=== PATIENT | male | born 1975 | race Caucasian/White ===

== ENCOUNTER → 2018-09-10 11:32 | Outpatient (CLI) | payer OTHER, SELFPAY ==
[2018-09-10 12:30] LABS: AST(SGOT) 31 U/L (15-37); Alanine Aminotransfer ALT/SGPT 61 U/L (16-61); Albumin, Serum 4.2 g/dL (3.2-5.0); Alkaline Phosphatase 97 U/L (45-117); Amylase 30 U/L (25-115); Bilirubin, Direct 0.32 mg/dL (0.00-0.30); Globulin 4.4 g/dL (2.2-4.2); Lipase 210 U/L (73-393); Protein, Total 8.6 g/dL (6.4-8.2)
[2018-09-12 14:54] LABS: ANTINUCLEAR ANTIBODIES DIRECT Negative (Negative)
[2018-09-13 10:57] LABS: AFP, Tumor Marker 5.6 ng/mL (0.0-8.3); Alpha Antitrypsin Serum 113 mg/dL (90-200); Anti-Mitochondrial AB <20.0 Units (0.0-20.0); Anti-Smooth Muscle ABS 10 Units (0-19); Ceruloplasmin 26.2 mg/dL (16.0-31.0)
== END ==
DX: R10.13 Epigastric pain (principal); R94.5 Abnormal results of liver function studies; R07.9 Chest pain, unspecified
CPT/HCPCS: 36415; 80076; 82103; 82105; 82150; 82390; 83516; 83690; 86038

== ENCOUNTER 2019-03-14 08:22 | Inpatient (IN) | payer OTHER, SELFPAY ==
[2019-03-14] VITALS (13 sets, daily range): BP systolic 135–155; BP diastolic 83–104; PULSE 71–126; RESP 14–22; TEMP 36.4–37.3; O2SAT 94–97; BMI 36.6; BMI 34.8
--- NOTE | 2019-03-14 08:40 | EKG12_ITS ---
Test Reason : AM EKG Blood Pressure : / mmHG Vent. Rate : 086 BPM Atrial Rate : 086 BPM P-R Int : 136 ms QRS Dur : 096 ms QT Int : 400 ms P-R-T Axes : 050 -04 043 degrees QTc Int : 478 ms Normal sinus rhythm Inferior infarct , age undetermined Abnormal ECG No previous ECGs available Confirmed by NEETU HERMAN, ANTHONY ([id number]), multimedia editor VICKEY THIBODEAUX ([id number]) on 03/21/2019 6:49:30 AM Referred By: Amanda Guillaume Confirmed By:RAMANDEEP DE ANDA MD
--- NOTE | 2019-03-14 08:40 | RAD_ITS ---
STUDY: X-RAY CHEST REASON FOR EXAM: Male, 44 years old. Dizziness and shortness of breath. TECHNIQUE: Single AP portable view of the chest. COMPARISON: None. FINDINGS: The lungs are clear and expanded. There is no demonstrated pleural abnormality. Normal size heart. Normal mediastinum and augustin. Normal visualized pulmonary arteries. Normal visualized aortic arch and descending thoracic aorta. Normal visualized thoracic spine. Normal visualized ribs, clavicles, and shoulders. There is no demonstrated abnormality of the visualized soft tissue structures of the upper abdomen. RAD/Chest 1 View (Portable) IMPRESSION: Normal x-ray examination of the chest. Electronically Signed: Francis Goodwin, at 9:05 EDT , Service support ,
--- NOTE | 2019-03-14 08:44 | NURSING ---
NO OLD EKGS
[2019-03-14] MEDS: 0.9% Normal Saline 1,000 ML 1000 ML IV (09:02)
[2019-03-14] MEDS: Aspirin 81 MG TAB.CHEW 162 MG PO (09:02)
[2019-03-14] MEDS: Ondansetron 4 MG/2 ML Vial IV (09:02)
[2019-03-14] MEDS: chlordiazePOXIDE 25 MG Capsule 50 MG PO ×4 (09:13→23:54)
[2019-03-14 09:19] LABS: Absolute Lymphocyte Count 1.44 X10^3/ul (0.83-4.51); Absolute Neutrophil Count 3.7 X10^3/uL (2.0-7.7); Basophil# 0.08 X10^3/uL; Basophil% 1.4 % (0-1); Eosinophil# 0.01 X10^3/uL; Eosinophils% 0.2 % (0-5); Hematocrit 47.1 % (40-54); Lymphocyte # 1.44 X10^3/ul (4.0); Mean Corp Hgb Conc 36.1 g/gl (32-36); Mean Corpuscular Hgb 31.9 pg (27.0-32.0); Mean Corpuscular Volume 88.4 fL (80-94); Mean Platelet Vol. 8.7 fl (6.2-12.0); Monocyte# 0.52 X10^3/uL; Neutrophil # 3.71 X10^3/uL (2.7-7.7); Neutrophil % 64.2 % (47-70); POSITIVE COUNT NO; POSITIVE DIFFERENTIAL NO; POSITIVE MORPHOLOGY NO; Platelet Count 273 K/mm3 (150-450); RBC Distribution Width CV 13.2 % (11.6-14.6); RBC Distribution Width SD 42.3 fl (35.1-43.9); Red Blood Count 5.33 M/mm3 (4.6-6.2); White Blood Count 5.8 K/mm3 (4.4-11.0)
[2019-03-14 09:26] LABS: Bedside Glucose 97 mg/dL (70-110)
[2019-03-14 09:37] LABS: ALB/GLOB Ratio 0.9 RATIO (0.9-2.4); AST(SGOT) 43 U/L (15-37); Alanine Aminotransfer ALT/SGPT 74 U/L (16-61); Albumin, Serum 3.8 g/dL (3.2-5.0); Alkaline Phosphatase 91 U/L (45-117); Anion Gap 24 (5-15); BUN 15 mg/dL (7-18); Chloride 95 mmol/L (98-107); Creatinine, Serum 0.94 mg/dL (0.70-1.30); EST Glomerular Filtration Rate 92 mL/min (>60); Est Glom Filt Rate - Afr Amer 112 mL/min (>60); Estimated Creatinine Clearance 108.92 ml/min; Globulin 4.3 g/dL (2.2-4.2); Glucose 122 mg/dL (74-106); Lipase 99 U/L (73-393); Potassium 3.5 mmol/L (3.5-5.1); Protein, Total 8.1 g/dL (6.4-8.2); Sodium Level 137 mmol/L (136-145)
--- NOTE | 2019-03-14 10:00 | ED.RN ---
LACTIC 9.[address] THE LAB. DR PUCKETT AWARE
--- NOTE | 2019-03-14 10:07 | ED.DCSUM_ITS ---
- ER Visit Summary Date of Service: 03/14/19 Chief Complaint: [Dizziness and shortness of breath and alcohol abuse] History of Present Illness: The patient is a 44 M [presents the emergency department with multiple complaints this morning. Patient's states that patient has been abusing alcohol for the last for 5 days as he has been on a binge. Patient has been drinking 1/5 of vodka daily. This morning while in the shower he felt short of breath and had to stop multiple times while attempting to shower and sit. Patient has had some intermittent chest tightness. He describes some abdominal discomfort and several episodes of vomiting this morning. Patient states that he last drank around 6 or 7 PM last night. In December of this year patient had a heart attack that was mild that required evacuation of a clot from his right coronary artery but no stenting. Patient also with history of lactic acidosis. He denies feeling suicidal or homicidal. He denies any hallucinations.] Physical Examination: [HEENT-PERRLA, EOMI. Cranial nerves II through XII grossly intact. TMs clear. Mucous membranes dry. No adenopathy. Cardiovascular-regular and tachycardic without murmur or ectopy Lungs-clear to auscultation, chest wall stable without crepitus or subcu emphysema Abdomen-normoactive bowel sounds, soft, nontender, no rebound or rigidity, no peritoneal signs. Extremities-intact ?4, normal range of motion, normal pulses, atraumatic] Test Results: [EKG obtained arrival shows sinus tachycardia with a ventricular rate of 103 bpm with some nonspecific ST changes. CBC with differential and a white count 5.8, hemoglobin 17, hematocrit 47, placed 273. Chemistries unremarkable. CO2 is 18. BUN was 15 and creatinine 0.94. LFTs showed slight elevation in alk phos of 91 and ALT of 74 and AST of 43. Troponin was less than 0.015. Lactate was elevated 9.0. Chest x-ray showed nothing acute.] Emergency Department Course and Treatment: [Patient was given a liter normal same fluid bolus and given Librium 50 mg p.o. Patient was given Zofran.] Treatment Plan: [Admit for IV hydration and symptom management.] Disposition: [Admit] Impression: [Alcohol withdrawal Lactic acidosis] This note was generated with [employer] software. It may contain incorrect words, spelling, and punctuation that were not noted in review of the chart prior to signing ED Disposition - Plan for ED Patient: Referrals: Town Doctor,Out of [Primary Care Provider] -
--- NOTE | 2019-03-14 10:07 | NURSING ---
PCU SEMENTI ETOH WITHDRAWAL, LACIC ACIDOSIS
[2019-03-14] MEDS: 0.9% Normal Saline 1,000 ML 150 ML IV (10:10)
[2019-03-14] MEDS: 0.9% Normal Saline 1,000 ML 999 ML IV (11:00)
[2019-03-14] MEDS: LORazepam 1 MG Tablet 2 MG PO (11:34)
[2019-03-14] MEDS: Acetaminophen 325 MG Tablet 650 MG PO (11:35)
[2019-03-14] MEDS: Famotidine 20 MG Tablet PO ×2 (11:35→21:00)
[2019-03-14] MEDS: Dextrose 5%-Lactated Ringers 1,000 ML 150 ML IV ×3 (11:55→23:55)
[2019-03-14] MEDS: Folic Acid 1 MG Tablet PO (11:57)
[2019-03-14] MEDS: Thiamine Hydrochloride 100 MG Tablet PO ×2 (11:58→18:01)
[2019-03-14] MEDS: Multivitamins,Ther W-Minerals Tablet 1 TABLET PO (11:58)
[2019-03-14] MEDS: Enoxaparin 40 MG/0.4 ML Syringe SC (11:58)
[2019-03-14 13:15] LABS: Reflex Lactate? Y
[2019-03-14 16:12] LABS: Anion Gap 16 (5-15); BUN 11 mg/dL (7-18); BUN/Creat Ratio 11.2 RATIO (10-20); Calcium,Total 8.2 mg/dL (8.5-10.1); Chloride 100 mmol/L (98-107); Creatinine, Serum 0.98 mg/dL (0.70-1.30); EST Glomerular Filtration Rate 88 mL/min (>60); Est Glom Filt Rate - Afr Amer 106 mL/min (>60); Estimated Creatinine Clearance 104.48 ml/min; Glucose 105 mg/dL (74-106); Potassium 3.4 mmol/L (3.5-5.1); Sodium Level 139 mmol/L (136-145)
--- NOTE | 2019-03-14 17:16 | PCM.HP.STD ---
Problem List (1) Lactic acidosis Status: Acute (2) Hypertension Status: Chronic (3) Gout Status: Chronic (4) Depression Status: Chronic (5) Dehydration Status: Acute (6) Hypokalemia Status: Acute (7) Abnormal LFTs Status: Acute (8) Alcoholism /alcohol abuse Status: Chronic History of Present Illness Date of Admission: 03/14/19 Chief Complaint: chest pain with SOB per the pt The patient is a 44 year old M with a PMH of alcoholism, AK due to a clot in a coronary artery (clot was evacuated and he did not have a stent), anxiety with panic attacks, depression and gout who presented to the ED at [facility] on 03/14/2019 complaining of chest pain and shortness of breath. He had been on an alcohol binge the preceding 5 days and was drinking 1/5 of vodka daily and not eating. He got short of breath while taking a shower and had to sit down multiple times. He also had abdominal discomfort and several episodes of emesis that morning. His last drink was the preceding evening at 6 or 7 PM. In the past he had been taking Valium regularly but discontinued this. His doctor would no longer prescribe it. He has been on Paxil which was stopped over a period of 9 days and he went through acute withdrawal. He has been to AA in the past. Lab in the emergency department revealed an elevated hemoglobin at 17 secondary to dehydration. The chloride was low at 95 and the serum bicarb was low at 18. The anion gap was increased to 24. Lactic acid was 9.0. Total bilirubin was increased at 1.1 and the AST was 43 with an ALT of 74 and a normal alkaline phosphatase. Troponin was less than 0.015. UA had no WBCs. Urine drug screen was negative. Ethyl alcohol level was 31. Acetone was negative. There were ketones in the urine. Chest x-ray revealed no evidence of infiltrates, pleural effusions or pulmonary vascular congestion. He is being admitted to the hospital with lactic acidosis due to dehydration, alcoholic ketosis and excessive alcohol intake. Past Medical History Past Medical History (Chronic Problems): Chronic Problems Insomnia (Chronic) Anxiety (Chronic) Hypertension (Chronic) Gout (Chronic) Depression (Chronic) Alcoholism /alcohol abuse (Chronic) Allergies prednisone Adverse Reaction (Verified 03/14/19 08:25) Other RAPID HR AND CANNOT SLEEP Home Medications: Ambulatory Orders Medication Instructions Recorded Aspirin [Aspir 81] 81 mg PO DAILY 03/14/19 Clopidogrel Bisulfate [Clopidogrel] 75 mg PO DAILY 03/14/19 Folic Acid 1 mg PO DAILY 03/14/19 Icosapent Ethyl [Vascepa] 2 gm PO BID 03/14/19 Metoprolol Tartrate 50 mg PO BID 03/14/19 Multivitamin,Stress Formula 1 ea PO DAILY 03/14/19 [Stress Formula] Potassium 99 mg PO DAILY 03/14/19 Smz/Tmp Ds [Bactrim Ds] 1 tab PO BID 03/14/19 Thiamine HCl [Vitamin B-1] 250 mg PO DAILY 03/14/19 traZODone [Desyrel] 50 - 100 mg PO QHS #45 tab 03/15/19 Surgical History: noncontributory Psychiatric History: Anxiety, Depression Lives: Spouse/ Significant Other Smoking Status: Never smoker Tobacco Use: Non-smoker Alcohol: Heavy Drugs: None - *Family History Maternal History Items: - - Grandfather was an alcoholic Review of Systems Constitutional: Reports: Malaise, Fatigue. Denies: Chills, Fever, Weight Change HEENT: Denies: Head Aches, Sinus Congestion, Sinus Drainage Cardiovascular: Reports: Chest Pain, Light Headedness. Denies: Orthopnea, Palpitations, Syncope Respiratory: Reports: Shortness of breath upon exertion. Denies: Cough, Shortness of breath at rest, Sputum production Gastrointestinal: Reports: Nausea, Vomiting. Denies: Abdominal Pain, Diarrhea Genitourinary: Denies: Dysuria Musculoskeletal: Denies: Joint Pain, Joint Tenderness Skin: Denies: Rash, Wounds Neurological: Denies: Confusion, Focal weakness, Numbness, Tingling, Tremor, Seizures Psychiatric: Denies: Anxiety, Depression, Homicidal Ideations, Suicidal Ideations Hematologic/ Lymphatic: Denies: Easy Bruising, Easy Bleeding, Hx of blood clot VTE Information - Inpt Only VTE Present on Admission: No VTE Mechan Device Prophylaxis: Knee High BENTLEY Hose VTE Pharm Prophylaxis ordered?: Yes Patient Problems: Active and Suspected Problems Lactic acidosis (Acute) Dehydration (Acute) Hypokalemia (Acute) Abnormal LFTs (Acute) - Physical Exam General: Alert, Oriented x3, Cooperative, - - looks pale and tired HEENT: Atraumatic, PERRLA, EOMI, Normocephalic Oral: No Gingival or Mucosal Lesions/ Ulcerations, Dry Mucosa Neck: Supple, No JVD, Negative Carotid Bruits, No Nodes, Trachea Midline Lungs: Clear to auscultation, Normal air movement, No rhonchi, No wheeze, No rales Cardiovascular: Regular rate, Regular Rhythm, Normal S1, Normal S2, No murmurs, No Ectopic Activity, No rub noted, No Gallop Abdomen: Bowel Sounds Present, Soft, Non Tender, Non-Distended Extremities: No clubbing, No cyanosis, No edema, Capillary Refill Less than 3 Seconds, No Calf Tenderness Skin: No rashes, No breakdown Musculoskeletal: No Tenderness to Palpation of Joints or Extremities Neurological: Cranial nerves II-XII grossly intact, Neuro grossly intact Psych/Mental Status: Normal Affect, Appropriate, Anxious Vital Signs Temp Pulse Resp BP Pulse Ox 98.6 F 77 14 135/89 H 96 03/14/19 14:44 03/14/19 16:00 03/14/19 14:44 03/14/19 14:44 03/14/19 14:44 Oxygen Delivery Method Room Air Weight: 256 lb 13.416 oz Body Mass Index (BMI) 34.8 Finger Stick Blood Glucose 97 Intake and Output for Last 24 Hours 03/12/19 03/13/19 03/14/19 23:59 23:59 23:59 Intake Total 888 / 888 Balance 888 / 888 Laboratory Tests Past 24 Hrs 03/14/19 03/14/19 03/14/19 09:05 09:05 09:05 WBC 5.8 RBC 5.33 Hgb 17.0 H Hct 47.1 MCV 88.4 MCH 31.9 MCHC 36.1 H RDW 13.2 RDW Differential 42.3 Plt Count 273 MPV 8.7 Immature Gran % (Auto) 0.200 Neut % (Auto) 64.2 Lymph % (Auto) 25.0 [place] % (Auto) 9.0 Eos % (Auto) 0.2 Baso % (Auto) 1.4 H Absolute Neuts (auto) 3.7 Absolute Lymphs (auto) 1.44 Total Counted Not Reportable Sodium 137 Potassium 3.5 Chloride 95 L Carbon Dioxide 18.0 L Anion Gap 24 H BUN 15 Creatinine 0.94 Estim Creat Clear Calc 108.92 Est GFR (MDRD) Af Amer 112 Est GFR (MDRD) Non-Af 92 BUN/Creatinine Ratio 16.0 Glucose 122 H Lactic Acid 9.0 H* Calcium 9.0 Total Bilirubin 1.10 H AST 43 H ALT 74 H Alkaline Phosphatase 91 Troponin I < 0.015 Total Protein 8.1 Albumin 3.8 Globulin 4.3 H Albumin/Globulin Ratio 0.9 Lipase 99 Ethyl Alcohol Acetone Level 03/14/19 03/14/19 03/14/19 09:05 09:05 13:32 WBC RBC Hgb Hct MCV MCH MCHC RDW RDW Differential Plt Count MPV Immature Gran % (Auto) Neut % (Auto) Lymph % (Auto) [place] % (Auto) Eos % (Auto) Baso % (Auto) Absolute Neuts (auto) Absolute Lymphs (auto) Total Counted Sodium Potassium Chloride Carbon Dioxide Anion Gap BUN Creatinine Estim Creat Clear Calc Est GFR (MDRD) Af Amer Est GFR (MDRD) Non-Af BUN/Creatinine Ratio Glucose Lactic Acid 4.0 H* Calcium Total Bilirubin AST ALT Alkaline Phosphatase Troponin I Total Protein Albumin Globulin Albumin/Globulin Ratio Lipase Ethyl Alcohol 31.0 Acetone Level NEGATIVE 03/14/19 15:35 WBC RBC Hgb Hct MCV MCH MCHC RDW RDW Differential Plt Count MPV Immature Gran % (Auto) Neut % (Auto) Lymph % (Auto) [place] % (Auto) Eos % (Auto) Baso % (Auto) Absolute Neuts (auto) Absolute Lymphs (auto) Total Counted Sodium 139 Potassium 3.4 L Chloride 100 Carbon Dioxide 23.0 Anion Gap 16 H BUN 11 Creatinine 0.98 Estim Creat Clear Calc 104.48 Est GFR (MDRD) Af Amer 106 Est GFR (MDRD) Non-Af 88 BUN/Creatinine Ratio 11.2 Glucose 105 Lactic Acid Calcium 8.2 L Total Bilirubin AST ALT Alkaline Phosphatase Troponin I Total Protein Albumin Globulin Albumin/Globulin Ratio Lipase Ethyl Alcohol Acetone Level POC Glucose 03/14/19 09:19 POC Glucose 97 Assessment/Plan All Active Problems Lactic acidosis (Acute) Dehydration (Acute) Hypokalemia (Acute) Abnormal LFTs (Acute) Impressions 1. chest pain with SOB 2. lactic acidosis - multifactorial. Due to alcoholic starvation ketosis, dehydration, excessive ETOH intake. 3. alcoholism 4. Anxiety with history of panic attacks 5. Depression 6. Insomnia 7. Hypokalemia 8. History of gout 9. History of a coronary artery clot which was evacuated with no NELI placed in the past Admit to a monitored bed on PCU Serial cardiac enzymes Hydrate Recheck lab in the a.m. Discussed alcohol rehab with the patient and also management of anxiety/depression Stress test in the a.m. Code Visit Inpatient E&M: 62457 Init Hosp L3
[2019-03-14 17:47] LABS: Bacteria 0 SEEN /hpf (None Seen); Mucous, Urine 0 SEEN /hpf (<or=2+); Red Blood Cells-Urine 0 SEEN /hpf (0-5); White Blood Cells 0 SEEN /hpf (0-5)
[2019-03-14 17:47] LABS: Magnesium 1.5 mg/dL (1.6-2.6); Phosphorus 3.7 mg/dL (2.5-4.9)
[2019-03-14 17:56] LABS: Color, Urine Yellow (Yellow); Glucose, Dipstick Normal (Normal); Ketone-Dipstick 5 mg/dl (Negative); Leukocyte Esterase-Dipstick Negative /ul (Negative); Nitrite-Dipstick Negative (Negative); Occult Blood-Urine Negative /ul (Negative); Protein-Dipstick Negative (Negative); Specific Gravity, Urine 1.015 (1.002-1.030); Urine Bilirubin Dipstick Negative (Negative); Urine Clarity Sl. Cloudy (Clear); Urine Urobilinogen Normal (Normal)
[2019-03-14 18:11] LABS: Amphetamine Urine VISTA NEGATIVE (<1000 ng/mL); Barbiturate Urine VISTA NEGATIVE (< 200 ng/mL); Benzodiazepine Urine VISTA NEGATIVE (< 200 ng/mL); Cocaine Urine VISTA NEGATIVE (< 300 ng/mL); Ecstacy Urine VISTA NEGATIVE (< 500 ng/mL); Methadone Urine VISTA NEGATIVE (< 300 ng/mL); PCP Urine VISTA NEGATIVE (< 25 ng/mL); THC Urine VISTA NEGATIVE (< 50 ng/mL); Vista UDS pH Range 6
[2019-03-14 18:36] LABS: Lactic Acid 2.6 mmol/L (0.4-2.0)
[2019-03-14 18:49] LABS: Amorphous Sediment 1+ URATE; Squamous Epithelial Cells - UA 0-5 SEEN /hpf (0-5)
[2019-03-14 21:56] LABS: Reflex Lactate? Y
[2019-03-14 22:58] LABS: Lactic Acid 2.2 mmol/L (0.4-2.0)
[2019-03-15 03:02] VITALS: PULSE 81
[2019-03-15 03:50] VITALS: BP 156/101; PULSE 89; RESP 16; TEMP 36.6; O2SAT 95
[2019-03-15 05:48] VITALS: BP 157/91; PULSE 89; RESP 16; TEMP 36.7; O2SAT 95
[2019-03-15] MEDS: Dextrose 5%-Lactated Ringers 1,000 ML 150 ML IV (05:50)
[2019-03-15] MEDS: chlordiazePOXIDE 25 MG Capsule 50 MG PO ×2 (05:50→13:16)
--- NOTE | 2019-03-15 05:55 | EKG12_ITS ---
Test Reason : SUBS ABUSE Blood Pressure : / mmHG Vent. Rate : 103 BPM Atrial Rate : 103 BPM P-R Int : 136 ms QRS Dur : 096 ms QT Int : 364 ms P-R-T Axes : 056 006 048 degrees QTc Int : 476 ms Sinus tachycardia Inferior infarct , age undetermined Anterolateral infarct , age undetermined Abnormal ECG Confirmed by ALMAZ SARMIENTO ([id number]), script editor VICKEY THIBODEAUX ([id number]) on 03/20/2019 10:30:04 AM Referred By: Amanda Guillaume Confirmed By:ALMAZ SARMIENTO
[2019-03-15 05:59] LABS: Absolute Lymphocyte Count 2.21 X10^3/ul (0.83-4.51); Absolute Neutrophil Count 2.4 X10^3/uL (2.0-7.7); Basophil# 0.04 X10^3/uL; Basophil% 0.8 % (0-1); Eosinophil# 0.13 X10^3/uL; Eosinophils% 2.5 % (0-5); Hematocrit 40.3 % (40-54); Lymphocyte # 2.21 X10^3/ul (4.0); Lymphocyte % 42.1 % (19-41); Mean Corp Hgb Conc 34.7 g/gl (32-36); Mean Corpuscular Hgb 31.4 pg (27.0-32.0); Mean Corpuscular Volume 90.4 fL (80-94); Mean Platelet Vol. 8.5 fl (6.2-12.0); Monocyte# 0.46 X10^3/uL; Monocyte% 8.8 % (0-10); Neutrophil # 2.41 X10^3/uL (2.7-7.7); Neutrophil % 45.8 % (47-70); Platelet Count 232 K/mm3 (150-450); RBC Distribution Width CV 13.1 % (11.6-14.6); RBC Distribution Width SD 42.2 fl (35.1-43.9); Red Blood Count 4.46 M/mm3 (4.6-6.2); White Blood Count 5.3 K/mm3 (4.4-11.0)
[2019-03-15 06:01] LABS: POSITIVE COUNT NO; POSITIVE DIFFERENTIAL NO; POSITIVE MORPHOLOGY NO
[2019-03-15 06:07] LABS: International Normalized Ratio 0.9; Prothrombin Time (Protime)PT. 12.4 SECONDS (11.7-14.9)
[2019-03-15 06:08] LABS: Partial Thromboplast Time 27.2 Seconds (24.1-36.2)
[2019-03-15 06:32] LABS: Anion Gap 17 (5-15); BUN 8 mg/dL (7-18); BUN/Creat Ratio 8.4 RATIO (10-20); Calcium,Total 7.7 mg/dL (8.5-10.1); Chloride 104 mmol/L (98-107); Creatinine, Serum 0.96 mg/dL (0.70-1.30); EST Glomerular Filtration Rate 90 mL/min (>60); Est Glom Filt Rate - Afr Amer 109 mL/min (>60); Estimated Creatinine Clearance 106.66 ml/min; Glucose 147 mg/dL (74-106); Potassium 3.8 mmol/L (3.5-5.1); Sodium Level 140 mmol/L (136-145)
--- NOTE | 2019-03-15 09:32 | CASEMGMT ---
SW spoke with patient. Introduced self and role at [facility]. Patient said he has an alcohol treatment program he plans on contacting. It is called [facility]. He has their information. He also knows of other alcohol treatment resources around him. SW encouraged him to keep trying as it is not easy, but possible to get sober. Plan: Patient has an alcohol treatment program he plans on contacting. Keerthi BOWEN MSW
[2019-03-15 09:48] VITALS: BP 143/71; PULSE 95; RESP 18; TEMP 36.9; O2SAT 97
[2019-03-15] MEDS: Famotidine 20 MG Tablet PO (10:11)
[2019-03-15] MEDS: Multivitamins,Ther W-Minerals Tablet 1 TABLET PO (10:19)
[2019-03-15] MEDS: Folic Acid 1 MG Tablet PO (10:19)
--- NOTE | 2019-03-15 10:35 | STRESSREP ---
Stress Test Report Date: 03-15-19 Procedure: Exercise tolerance test/imaging study Indications: Chest pain; shortness of breath/dyspnea Consent: Per the patient Procedure: The patient exercised on a Isaac protocol for 6 minutes and 35 seconds completing Stage II and 35 seconds of Stage III achieving a peak heart rate of 179 bpm (102 % predicted maximal heart rate) with a peak blood pressure 172/82 mmHg and a peak MET capacity of 7 METs. The baseline ECG demonstrated normal sinus rhythm. The peak exercise ECG demonstrated no obvious ECG changes. There were no cardiac dysrhythmias pretest, during exercise, or recovery. The functional capacity was considered average. There was chest tightness near peak exercise with spontaneous resolution in recovery. The examination was discontinued secondary to leg discomfort; dyspnea; lightheaded. Impression: 1. Technically adequate (percent predicted maximal heart rate greater than 85%) exercise tolerance test 2. Peak exercise ECG with no obvious ECG changes 3. There were no cardiac dysrhythmias pretest, during exercise, or recovery 4. Nuclear images pending Myocardial perfusion imaging study: Technique: The patient was injected with 14.8 mCi of technetium 99m Cardiolite and subsequently rest SPECT Cardiolite nuclear imaging was obtained in the horizontal long, vertical long, and short axis views. The patient exercised on a Isaac protocol for 6 minutes and 35 seconds completing Stage II and 35 seconds of Stage III achieving a peak heart rate of 179 bpm (102 % predicted maximal heart rate) with a peak blood pressure 172/82 mmHg and a peak MET capacity of 7 METs.The patient was injected with 44.7 mCi of technetium 99m Cardiolite and subsequently stress SPECT Cardiolite nuclear imaging was obtained in the horizontal long, vertical long, and short axis views. A gated Cardiolite study at peak stress was obtained. Interpretation: Rest and stress SPECT Cardiolite nuclear imaging status post realignment, normalization, and attenuation correction, demonstrates areas of extracardiac/hepatic and gastrointestinal tracer uptake at rest being more prominent than stress. At rest and stress there is notation of diminished absence of tracer uptake in portions of the distal inferior as well as portions of the apical segments without significant change between rest and stress. There is end systolic thickening and brightening. The gated Cardiolite study demonstrates myocardial thickening and inward wall motion. The reported LVEF is 56 %. Impression: 1. Rest and stress SPECT Cardiolite nuclear imaging demonstrate myocardial perfusion changes potentially compatible with the effects of gastrointestinal tracer uptake/detraction and physiologic apical thinning although an area of previous myocardial injury/infarction involving portions of the distal inferior as well as portions of the apical segments cannot necessarily be excluded. There are no myocardial perfusion changes considered diagnostic for associated stress-induced myocardial ischemia. 2. The gated Cardiolite study reports an LVEF of 56 %. This note was generated with [employer] software. It may contain incorrect words, spelling, and punctuation that were not noted in checking the note before signing.
--- NOTE | 2019-03-15 10:55 | CASEMGMT ---
RN CM PRACTICE CLINICIAN CM to room to meet with patient for initial transition planning/care coordination assessment. SHANAE QUARLES introduced self and role at [facility]. Pt voices understanding and consents to assessment at this time. Pt resting in bed in no distress at this time. Pt is A/O at this time and answers all questions appropriately. Care providers, pharmacy, and demographics verified/updated at this time. PCP: [facility] Specialists: Sharlene: [facility] in [place]. Carmen: [employer] [facility] [employer] [facility] @ [place] [facility] Preferred Pharmacy: [facility] Retail Insurance: [facility] [facility] Prescription Benefit: Yes Living Will/HPOA: States does not have LW or HCPOA . Interested in more information but states does not want to talk with SW at this time to complete paperwork. Provided information on advanced directives and given Social Service rac card with number to call if chooses in the future to utilize [facility] social work for advanced directive completion. Pt voices understanding. LNOK: Living Arrangements: Lives with . Independent. Transportation: Pt states drives self and states no transportation concerns at this time. will drive pt home @ D/C DME: Denies using any DME and denies needs. HHC/SNF: No history of either and no needs identified Pt wishes to return home and states has no concerns with going home at time of discharge. SW has seen for ETOH abuse. CM to follow for any discharge planning/needs. Pt and voice no concerns/needs at this time. Advised them to ask for CM if any further questions/concerns/needs arise. Voices understanding. PLAN: Home w/spousal support and discharge plans in place. Regi LUDWIG RN, CM
[2019-03-15] MEDS: Thiamine Hydrochloride 100 MG Tablet PO (13:16)
[2019-03-15 13:45] VITALS: BP 139/71; PULSE 94; RESP 18; TEMP 36.7; O2SAT 97
--- NOTE | 2019-03-15 15:53 | PCM.DC ---
- Discharge Diagnoses Current Active Problems: Current Active and Chronic Problems Lactic acidosis (Acute) Hypertension (Chronic) Gout (Acute) Depression (Acute) Dehydration (Acute) Hypokalemia (Acute) Abnormal LFTs (Acute) Alcoholism /alcohol abuse (Acute) You will use the following diet at home:: No restrictions Your food should be the consistency of: Regular Your liquids should be the consistency of: Regular/Thin Discharge Activity: - - Get in the habit of getting some exercise everyday. It helps with anxiety control and gives you energy. Return to work on:: 03/16/19 Call your doctor if you observe: Shortness of breath, Dizziness, Fainting spells, Swelling in the ankles, Chest pain Instructions: Depression: Tips to Help Yourself, What Can Cause Depression?, Depression Affects Your Mind and Body, Your Body's Response to Anxiety, Understanding Anxiety Disorders, Understanding Alcoholism, Alcoholism: Myths and Facts, Alcoholism: How to be Part of the Solution, Alcoholism: Resources for Family and Friends, Alcoholism: Getting Help Additional Instructions: 1. Keep trying. Most addicts/alcoholics go to rehab 7 times before they can finally conquer their addiction. Get back into a 12 step program. I think your may benefit from attending [facility]........this group is for the friends and families of alcoholics. 2. The problems you had at admission are due to drinking a lot and not eating. You are using alcohol to treat your anxiety/depression/insomnia.......you need to find other ways to cope. It is different for everyone. some people work out at a gym, others paint, some read, some knit, others ride a bike.....find what works for you to distract yourself so you don't sit and swell on anxiety. 3. The stress test was good.......no indication of significant coronary artery disease. 4. Antidepressants and medications for anxiety work much better when combined with good therapy. Find a counsellor you relate to who can help you with your mental health issues. Sometimes you have to try a few different broadcast correspondent before you find someone you click with. 5. Do not go to bed until at least 9:30.....and do not take the Trazodone until you are in bed and ready to sleep. You need to reestablish a normal sleep pattern Pending Tests on Discharge: none Allergies/Adverse Reactions: Allergies prednisone Adverse Reaction (Verified 03/14/19 08:25) Other RAPID HR AND CANNOT SLEEP Medications to take at Discharge Aspirin [Aspir 81] 81 mg PO DAILY 03/14/19 Clopidogrel Bisulfate [Clopidogrel] 75 mg PO DAILY 03/14/19 Folic Acid 1 mg PO DAILY 03/14/19 Icosapent Ethyl [Vascepa] 2 gm PO BID 03/14/19 Metoprolol Tartrate 50 mg PO BID 03/14/19 Multivitamin,Stress Formula [Stress Formula] 1 ea PO DAILY 03/14/19 Potassium 99 mg PO DAILY 03/14/19 Smz/Tmp Ds [Bactrim Ds] 1 tab PO BID 03/14/19 Thiamine HCl [Vitamin B-1] 250 mg PO DAILY 03/14/19 traZODone [Desyrel] 50 - 100 mg PO QHS #45 tab 03/15/19 The following prescriptions were given: traZODone [Desyrel] 50 - 100 mg PO QHS #45 tab Transmission Status: Pending to [facility] Primary Care Physician: [facility] Doctor,Out of [Primary Care Provider] - Please follow up with your Primary Care Physician in: 1-2 weeks Test Results: Test results from this visit will be discussed in further detail at your follow-up appointment, if applicable. Proposed Discharge Date: 03/15/19
--- NOTE | 2019-03-15 16:05 | WORK.SCH_ITS ---
Work/School Excuse From: 03/14/19 through: 03/15/19
--- NOTE | 2019-03-15 16:05 | PCM.WORK.EX ---
Work/School Excuse From: 03/14/19 through: 03/15/19
--- NOTE | 2019-03-15 16:22 | DS.PCM_ITS ---
Discharge Date and Diagnosis - Problem List Patient Problems: Active and Suspected Problems Lactic acidosis (Acute) Dehydration (Acute) Hypokalemia (Acute) Abnormal LFTs (Acute) Date of Admission: 03/14/19 Date of Discharge: 03/15/19 - Primary Discharge Diagnosis Active and Suspected Problems Lactic acidosis (Acute) Dehydration (Acute) Urinary ketosis Hypokalemia (Acute) Abnormal LFTs (Acute) Chest pain - Secondary Discharge Diagnosis Chronic Problems Insomnia (Chronic) Anxiety (Chronic) Hypertension (Chronic) Gout (Chronic) Depression (Chronic) Alcoholism /alcohol abuse (Chronic) Hospital Course and Treatment Imaging Results: Clinical Impression(s) from Imaging Studies Chest X-Ray 03/14/19 08:40 IMPRESSION: Normal x-ray examination of the chest. Electronically Signed: Francis Goodwin, at 9:05 EDT , Service support , Laboratory Tests 03/15/19 03/15/19 03/15/19 Range/Units 05:40 05:40 05:40 WBC 5.3 (4.4-11.0) K/mm3 RBC 4.46 L (4.6-6.2) M/mm3 Hgb 14.0 (13.0-16.5) g/dl Hct 40.3 (40-54) % MCV 90.4 (80-94) fL MCH 31.4 (27.0-32.0) pg MCHC 34.7 (32-36) g/gl RDW 13.1 (11.6-14.6) % RDW Differential 42.2 (35.1-43.9) fl Plt Count 232 (150-450) K/mm3 MPV 8.5 (6.2-12.0) fl Immature Gran % (Auto) 0.000 (0.0-0.9) % Neut % (Auto) 45.8 L (47-70) % Lymph % (Auto) 42.1 H (19-41) % [place] % (Auto) 8.8 (0-10) % Eos % (Auto) 2.5 (0-5) % Baso % (Auto) 0.8 (0-1) % Absolute Neuts (auto) 2.4 (2.0-7.7) X10^3/uL Absolute Lymphs (auto) 2.21 (0.83-4.51) X10^3/ul Total Counted Not Reportable PT 12.4 (11.7-14.9) SECONDS INR 0.9 APTT 27.2 (24.1-36.2) Seconds Sodium 140 (136-145) mmol/L Potassium 3.8 (3.5-5.1) mmol/L Chloride 104 (98-107) mmol/L Carbon Dioxide 19.0 L (21.0-32.0) mmol/L Anion Gap 17 H (5-15) BUN 8 (7-18) mg/dL Creatinine 0.96 (0.70-1.30) mg/dL Estim Creat Clear Calc 106.66 ml/min Est GFR (MDRD) Af Amer 109 (>60) mL/min Est GFR (MDRD) Non-Af 90 (>60) mL/min BUN/Creatinine Ratio 8.4 L (10-20) RATIO Glucose 147 H (74-106) mg/dL Lactic Acid (0.4-2.0) mmol/L Calcium 7.7 L (8.5-10.1) mg/dL Phosphorus (2.5-4.9) mg/dL Magnesium (1.6-2.6) mg/dL Total Bilirubin (0.20-1.00) mg/dL AST (15-37) U/L ALT (16-61) U/L Alkaline Phosphatase (45-117) U/L Troponin I (<0.045) ng/mL Total Protein (6.4-8.2) g/dL Albumin (3.2-5.0) g/dL Globulin (2.2-4.2) g/dL Albumin/Globulin Ratio (0.9-2.4) RATIO Lipase (73-393) U/L Urine Color (Yellow) Urine Clarity (Clear) Urine pH (5.0 - 8.0) Ur Specific [place] (1.002-1.030) Urine Protein (Negative) mg/dl Urine Glucose (UA) (Normal) mg/dl Urine Ketones (Negative) mg/dl Urine Occult Blood (Negative) /ul Urine Nitrite (Negative) Urine Bilirubin (Negative) mg/dL Urine Urobilinogen (Normal) mg/dl Ur Leukocyte Esterase (Negative) /ul Urine RBC (0-5) /hpf Urine WBC (0-5) /hpf Ur Squamous Epith Cells (0-5) /hpf Amorphous Sediment Urine Bacteria (None Seen) /hpf Urine Mucus (<or=2+) /hpf Urine Opiates Screen (< 300 ng/mL) Urine Methadone Screen (< 300 ng/mL) Ur Barbiturates Screen (< 200 ng/mL) Ur Phencyclidine Scrn (< 25 ng/mL) Ur Amphetamines Screen (<1000 ng/mL) U Methamphetamin-MDMA (< 500 ng/mL) U Benzodiazepines Scrn (< 200 ng/mL) Urine Cocaine Screen (< 300 ng/mL) U Cannabinoids Screen (< 50 ng/mL) Ur Drug Screen Comment Ethyl Alcohol mg/dL Acetone Level (NEG) POC Glucose (70-110) mg/dL 03/14/19 03/14/19 03/14/19 Range/Units 23:38 22:18 20:25 WBC (4.4-11.0) K/mm3 RBC (4.6-6.2) M/mm3 Hgb (13.0-16.5) g/dl Hct (40-54) % MCV (80-94) fL MCH (27.0-32.0) pg MCHC (32-36) g/gl RDW (11.6-14.6) % RDW Differential (35.1-43.9) fl Plt Count (150-450) K/mm3 MPV (6.2-12.0) fl Immature Gran % (Auto) (0.0-0.9) % Neut % (Auto) (47-70) % Lymph % (Auto) (19-41) % [place] % (Auto) (0-10) % Eos % (Auto) (0-5) % Baso % (Auto) (0-1) % Absolute Neuts (auto) (2.0-7.7) X10^3/uL Absolute Lymphs (auto) (0.83-4.51) X10^3/ul Total Counted PT (11.7-14.9) SECONDS INR APTT (24.1-36.2) Seconds Sodium (136-145) mmol/L Potassium (3.5-5.1) mmol/L Chloride (98-107) mmol/L Carbon Dioxide (21.0-32.0) mmol/L Anion Gap (5-15) BUN (7-18) mg/dL Creatinine (0.70-1.30) mg/dL Estim Creat Clear Calc ml/min Est GFR (MDRD) Af Amer (>60) mL/min Est GFR (MDRD) Non-Af (>60) mL/min BUN/Creatinine Ratio (10-20) RATIO Glucose (74-106) mg/dL Lactic Acid 2.2 H (0.4-2.0) mmol/L Calcium (8.5-10.1) mg/dL Phosphorus (2.5-4.9) mg/dL Magnesium (1.6-2.6) mg/dL Total Bilirubin (0.20-1.00) mg/dL AST (15-37) U/L ALT (16-61) U/L Alkaline Phosphatase (45-117) U/L Troponin I < 0.015 < 0.015 (<0.045) ng/mL Total Protein (6.4-8.2) g/dL Albumin (3.2-5.0) g/dL Globulin (2.2-4.2) g/dL Albumin/Globulin Ratio (0.9-2.4) RATIO Lipase (73-393) U/L Urine Color (Yellow) Urine Clarity (Clear) Urine pH (5.0 - 8.0) Ur Specific [place] (1.002-1.030) Urine Protein (Negative) mg/dl Urine Glucose (UA) (Normal) mg/dl Urine Ketones (Negative) mg/dl Urine Occult Blood (Negative) /ul Urine Nitrite (Negative) Urine Bilirubin (Negative) mg/dL Urine Urobilinogen (Normal) mg/dl Ur Leukocyte Esterase (Negative) /ul Urine RBC (0-5) /hpf Urine WBC (0-5) /hpf Ur Squamous Epith Cells (0-5) /hpf Amorphous Sediment Urine Bacteria (None Seen) /hpf Urine Mucus (<or=2+) /hpf Urine Opiates Screen (< 300 ng/mL) Urine Methadone Screen (< 300 ng/mL) Ur Barbiturates Screen (< 200 ng/mL) Ur Phencyclidine Scrn (< 25 ng/mL) Ur Amphetamines Screen (<1000 ng/mL) U Methamphetamin-MDMA (< 500 ng/mL) U Benzodiazepines Scrn (< 200 ng/mL) Urine Cocaine Screen (< 300 ng/mL) U Cannabinoids Screen (< 50 ng/mL) Ur Drug Screen Comment Ethyl Alcohol mg/dL Acetone Level (NEG) POC Glucose (70-110) mg/dL 03/14/19 03/14/19 03/14/19 Range/Units 17:50 17:50 17:40 WBC (4.4-11.0) K/mm3 RBC (4.6-6.2) M/mm3 Hgb (13.0-16.5) g/dl Hct (40-54) % MCV (80-94) fL MCH (27.0-32.0) pg MCHC (32-36) g/gl RDW (11.6-14.6) % RDW Differential (35.1-43.9) fl Plt Count (150-450) K/mm3 MPV (6.2-12.0) fl Immature Gran % (Auto) (0.0-0.9) % Neut % (Auto) (47-70) % Lymph % (Auto) (19-41) % [place] % (Auto) (0-10) % Eos % (Auto) (0-5) % Baso % (Auto) (0-1) % Absolute Neuts (auto) (2.0-7.7) X10^3/uL Absolute Lymphs (auto) (0.83-4.51) X10^3/ul Total Counted PT (11.7-14.9) SECONDS INR APTT (24.1-36.2) Seconds Sodium (136-145) mmol/L Potassium (3.5-5.1) mmol/L Chloride (98-107) mmol/L Carbon Dioxide (21.0-32.0) mmol/L Anion Gap (5-15) BUN (7-18) mg/dL Creatinine (0.70-1.30) mg/dL Estim Creat Clear Calc ml/min Est GFR (MDRD) Af Amer (>60) mL/min Est GFR (MDRD) Non-Af (>60) mL/min BUN/Creatinine Ratio (10-20) RATIO Glucose (74-106) mg/dL Lactic Acid 2.6 H (0.4-2.0) mmol/L Calcium (8.5-10.1) mg/dL Phosphorus (2.5-4.9) mg/dL Magnesium (1.6-2.6) mg/dL Total Bilirubin (0.20-1.00) mg/dL AST (15-37) U/L ALT (16-61) U/L Alkaline Phosphatase (45-117) U/L Troponin I < 0.015 (<0.045) ng/mL Total Protein (6.4-8.2) g/dL Albumin (3.2-5.0) g/dL Globulin (2.2-4.2) g/dL Albumin/Globulin Ratio (0.9-2.4) RATIO Lipase (73-393) U/L Urine Color (Yellow) Urine Clarity (Clear) Urine pH (5.0 - 8.0) Ur Specific [place] (1.002-1.030) Urine Protein (Negative) mg/dl Urine Glucose (UA) (Normal) mg/dl Urine Ketones (Negative) mg/dl Urine Occult Blood (Negative) /ul Urine Nitrite (Negative) Urine Bilirubin (Negative) mg/dL Urine Urobilinogen (Normal) mg/dl Ur Leukocyte Esterase (Negative) /ul Urine RBC (0-5) /hpf Urine WBC (0-5) /hpf Ur Squamous Epith Cells (0-5) /hpf Amorphous Sediment Urine Bacteria (None Seen) /hpf Urine Mucus (<or=2+) /hpf Urine Opiates Screen NEGATIVE (< 300 ng/mL) Urine Methadone Screen NEGATIVE (< 300 ng/mL) Ur Barbiturates Screen NEGATIVE (< 200 ng/mL) Ur Phencyclidine Scrn NEGATIVE (< 25 ng/mL) Ur Amphetamines Screen NEGATIVE (<1000 ng/mL) U Methamphetamin-MDMA NEGATIVE (< 500 ng/mL) U Benzodiazepines Scrn NEGATIVE (< 200 ng/mL) Urine Cocaine Screen NEGATIVE (< 300 ng/mL) U Cannabinoids Screen NEGATIVE (< 50 ng/mL) Ur Drug Screen Comment Ethyl Alcohol mg/dL Acetone Level (NEG) POC Glucose (70-110) mg/dL 03/14/19 03/14/19 03/14/19 Range/Units 17:40 15:35 15:35 WBC (4.4-11.0) K/mm3 RBC (4.6-6.2) M/mm3 Hgb (13.0-16.5) g/dl Hct (40-54) % MCV (80-94) fL MCH (27.0-32.0) pg MCHC (32-36) g/gl RDW (11.6-14.6) % RDW Differential (35.1-43.9) fl Plt Count (150-450) K/mm3 MPV (6.2-12.0) fl Immature Gran % (Auto) (0.0-0.9) % Neut % (Auto) (47-70) % Lymph % (Auto) (19-41) % [place] % (Auto) (0-10) % Eos % (Auto) (0-5) % Baso % (Auto) (0-1) % Absolute Neuts (auto) (2.0-7.7) X10^3/uL Absolute Lymphs (auto) (0.83-4.51) X10^3/ul Total Counted PT (11.7-14.9) SECONDS INR APTT (24.1-36.2) Seconds Sodium 139 (136-145) mmol/L Potassium 3.4 L (3.5-5.1) mmol/L Chloride 100 (98-107) mmol/L Carbon Dioxide 23.0 (21.0-32.0) mmol/L Anion Gap 16 H (5-15) BUN 11 (7-18) mg/dL Creatinine 0.98 (0.70-1.30) mg/dL Estim Creat Clear Calc 104.48 ml/min Est GFR (MDRD) Af Amer 106 (>60) mL/min Est GFR (MDRD) Non-Af 88 (>60) mL/min BUN/Creatinine Ratio 11.2 (10-20) RATIO Glucose 105 (74-106) mg/dL Lactic Acid (0.4-2.0) mmol/L Calcium 8.2 L (8.5-10.1) mg/dL Phosphorus 3.7 (2.5-4.9) mg/dL Magnesium 1.5 L (1.6-2.6) mg/dL Total Bilirubin (0.20-1.00) mg/dL AST (15-37) U/L ALT (16-61) U/L Alkaline Phosphatase (45-117) U/L Troponin I (<0.045) ng/mL Total Protein (6.4-8.2) g/dL Albumin (3.2-5.0) g/dL Globulin (2.2-4.2) g/dL Albumin/Globulin Ratio (0.9-2.4) RATIO Lipase (73-393) U/L Urine Color Yellow (Yellow) Urine Clarity Sl. Cloudy (Clear) Urine pH 6.0 (5.0 - 8.0) Ur Specific [place] 1.015 (1.002-1.030) Urine Protein Negative (Negative) mg/dl Urine Glucose (UA) Normal (Normal) mg/dl Urine Ketones 5 H (Negative) mg/dl Urine Occult Blood Negative (Negative) /ul Urine Nitrite Negative (Negative) Urine Bilirubin Negative (Negative) mg/dL Urine Urobilinogen Normal (Normal) mg/dl Ur Leukocyte Esterase Negative (Negative) /ul Urine RBC 0 SEEN (0-5) /hpf Urine WBC 0 SEEN (0-5) /hpf Ur Squamous Epith Cells 0-5 SEEN (0-5) /hpf Amorphous Sediment 1+ URATE Urine Bacteria 0 SEEN (None Seen) /hpf Urine Mucus 0 SEEN (<or=2+) /hpf Urine Opiates Screen (< 300 ng/mL) Urine Methadone Screen (< 300 ng/mL) Ur Barbiturates Screen (< 200 ng/mL) Ur Phencyclidine Scrn (< 25 ng/mL) Ur Amphetamines Screen (<1000 ng/mL) U Methamphetamin-MDMA (< 500 ng/mL) U Benzodiazepines Scrn (< 200 ng/mL) Urine Cocaine Screen (< 300 ng/mL) U Cannabinoids Screen (< 50 ng/mL) Ur Drug Screen Comment Ethyl Alcohol mg/dL Acetone Level (NEG) POC Glucose (70-110) mg/dL 03/14/19 03/14/19 03/14/19 Range/Units 13:32 09:19 09:05 WBC (4.4-11.0) K/mm3 RBC (4.6-6.2) M/mm3 Hgb (13.0-16.5) g/dl Hct (40-54) % MCV (80-94) fL MCH (27.0-32.0) pg MCHC (32-36) g/gl RDW (11.6-14.6) % RDW Differential (35.1-43.9) fl Plt Count (150-450) K/mm3 MPV (6.2-12.0) fl Immature Gran % (Auto) (0.0-0.9) % Neut % (Auto) (47-70) % Lymph % (Auto) (19-41) % [place] % (Auto) (0-10) % Eos % (Auto) (0-5) % Baso % (Auto) (0-1) % Absolute Neuts (auto) (2.0-7.7) X10^3/uL Absolute Lymphs (auto) (0.83-4.51) X10^3/ul Total Counted PT (11.7-14.9) SECONDS INR APTT (24.1-36.2) Seconds Sodium (136-145) mmol/L Potassium (3.5-5.1) mmol/L Chloride (98-107) mmol/L Carbon Dioxide (21.0-32.0) mmol/L Anion Gap (5-15) BUN (7-18) mg/dL Creatinine (0.70-1.30) mg/dL Estim Creat Clear Calc ml/min Est GFR (MDRD) Af Amer (>60) mL/min Est GFR (MDRD) Non-Af (>60) mL/min BUN/Creatinine Ratio (10-20) RATIO Glucose (74-106) mg/dL Lactic Acid 4.0 H* (0.4-2.0) mmol/L Calcium (8.5-10.1) mg/dL Phosphorus (2.5-4.9) mg/dL Magnesium (1.6-2.6) mg/dL Total Bilirubin (0.20-1.00) mg/dL AST (15-37) U/L ALT (16-61) U/L Alkaline Phosphatase (45-117) U/L Troponin I (<0.045) ng/mL Total Protein (6.4-8.2) g/dL Albumin (3.2-5.0) g/dL Globulin (2.2-4.2) g/dL Albumin/Globulin Ratio (0.9-2.4) RATIO Lipase (73-393) U/L Urine Color (Yellow) Urine Clarity (Clear) Urine pH (5.0 - 8.0) Ur Specific [place] (1.002-1.030) Urine Protein (Negative) mg/dl Urine Glucose (UA) (Normal) mg/dl Urine Ketones (Negative) mg/dl Urine Occult Blood (Negative) /ul Urine Nitrite (Negative) Urine Bilirubin (Negative) mg/dL Urine Urobilinogen (Normal) mg/dl Ur Leukocyte Esterase (Negative) /ul Urine RBC (0-5) /hpf Urine WBC (0-5) /hpf Ur Squamous Epith Cells (0-5) /hpf Amorphous Sediment Urine Bacteria (None Seen) /hpf Urine Mucus (<or=2+) /hpf Urine Opiates Screen (< 300 ng/mL) Urine Methadone Screen (< 300 ng/mL) Ur Barbiturates Screen (< 200 ng/mL) Ur Phencyclidine Scrn (< 25 ng/mL) Ur Amphetamines Screen (<1000 ng/mL) U Methamphetamin-MDMA (< 500 ng/mL) U Benzodiazepines Scrn (< 200 ng/mL) Urine Cocaine Screen (< 300 ng/mL) U Cannabinoids Screen (< 50 ng/mL) Ur Drug Screen Comment Ethyl Alcohol mg/dL Acetone Level NEGATIVE (NEG) POC Glucose 97 (70-110) mg/dL 03/14/19 03/14/19 03/14/19 Range/Units 09:05 09:05 09:05 WBC (4.4-11.0) K/mm3 RBC (4.6-6.2) M/mm3 Hgb (13.0-16.5) g/dl Hct (40-54) % MCV (80-94) fL MCH (27.0-32.0) pg MCHC (32-36) g/gl RDW (11.6-14.6) % RDW Differential (35.1-43.9) fl Plt Count (150-450) K/mm3 MPV (6.2-12.0) fl Immature Gran % (Auto) (0.0-0.9) % Neut % (Auto) (47-70) % Lymph % (Auto) (19-41) % [place] % (Auto) (0-10) % Eos % (Auto) (0-5) % Baso % (Auto) (0-1) % Absolute Neuts (auto) (2.0-7.7) X10^3/uL Absolute Lymphs (auto) (0.83-4.51) X10^3/ul Total Counted PT (11.7-14.9) SECONDS INR APTT (24.1-36.2) Seconds Sodium 137 (136-145) mmol/L Potassium 3.5 (3.5-5.1) mmol/L Chloride 95 L (98-107) mmol/L Carbon Dioxide 18.0 L (21.0-32.0) mmol/L Anion Gap 24 H (5-15) BUN 15 (7-18) mg/dL Creatinine 0.94 (0.70-1.30) mg/dL Estim Creat Clear Calc 108.92 ml/min Est GFR (MDRD) Af Amer 112 (>60) mL/min Est GFR (MDRD) Non-Af 92 (>60) mL/min BUN/Creatinine Ratio 16.0 (10-20) RATIO Glucose 122 H (74-106) mg/dL Lactic Acid 9.0 H* (0.4-2.0) mmol/L Calcium 9.0 (8.5-10.1) mg/dL Phosphorus (2.5-4.9) mg/dL Magnesium (1.6-2.6) mg/dL Total Bilirubin 1.10 H (0.20-1.00) mg/dL AST 43 H (15-37) U/L ALT 74 H (16-61) U/L Alkaline Phosphatase 91 (45-117) U/L Troponin I < 0.015 (<0.045) ng/mL Total Protein 8.1 (6.4-8.2) g/dL Albumin 3.8 (3.2-5.0) g/dL Globulin 4.3 H (2.2-4.2) g/dL Albumin/Globulin Ratio 0.9 (0.9-2.4) RATIO Lipase 99 (73-393) U/L Urine Color (Yellow) Urine Clarity (Clear) Urine pH (5.0 - 8.0) Ur Specific [place] (1.002-1.030) Urine Protein (Negative) mg/dl Urine Glucose (UA) (Normal) mg/dl Urine Ketones (Negative) mg/dl Urine Occult Blood (Negative) /ul Urine Nitrite (Negative) Urine Bilirubin (Negative) mg/dL Urine Urobilinogen (Normal) mg/dl Ur Leukocyte Esterase (Negative) /ul Urine RBC (0-5) /hpf Urine WBC (0-5) /hpf Ur Squamous Epith Cells (0-5) /hpf Amorphous Sediment Urine Bacteria (None Seen) /hpf Urine Mucus (<or=2+) /hpf Urine Opiates Screen (< 300 ng/mL) Urine Methadone Screen (< 300 ng/mL) Ur Barbiturates Screen (< 200 ng/mL) Ur Phencyclidine Scrn (< 25 ng/mL) Ur Amphetamines Screen (<1000 ng/mL) U Methamphetamin-MDMA (< 500 ng/mL) U Benzodiazepines Scrn (< 200 ng/mL) Urine Cocaine Screen (< 300 ng/mL) U Cannabinoids Screen (< 50 ng/mL) Ur Drug Screen Comment Ethyl Alcohol 31.0 mg/dL Acetone Level (NEG) POC Glucose (70-110) mg/dL 03/14/19 Range/Units 09:05 WBC 5.8 (4.4-11.0) K/mm3 RBC 5.33 (4.6-6.2) M/mm3 Hgb 17.0 H (13.0-16.5) g/dl Hct 47.1 (40-54) % MCV 88.4 (80-94) fL MCH 31.9 (27.0-32.0) pg MCHC 36.1 H (32-36) g/gl RDW 13.2 (11.6-14.6) % RDW Differential 42.3 (35.1-43.9) fl Plt Count 273 (150-450) K/mm3 MPV 8.7 (6.2-12.0) fl Immature Gran % (Auto) 0.200 (0.0-0.9) % Neut % (Auto) 64.2 (47-70) % Lymph % (Auto) 25.0 (19-41) % [place] % (Auto) 9.0 (0-10) % Eos % (Auto) 0.2 (0-5) % Baso % (Auto) 1.4 H (0-1) % Absolute Neuts (auto) 3.7 (2.0-7.7) X10^3/uL Absolute Lymphs (auto) 1.44 (0.83-4.51) X10^3/ul Total Counted Not Reportable PT (11.7-14.9) SECONDS INR APTT (24.1-36.2) Seconds Sodium (136-145) mmol/L Potassium (3.5-5.1) mmol/L Chloride (98-107) mmol/L Carbon Dioxide (21.0-32.0) mmol/L Anion Gap (5-15) BUN (7-18) mg/dL Creatinine (0.70-1.30) mg/dL Estim Creat Clear Calc ml/min Est GFR (MDRD) Af Amer (>60) mL/min Est GFR (MDRD) Non-Af (>60) mL/min BUN/Creatinine Ratio (10-20) RATIO Glucose (74-106) mg/dL Lactic Acid (0.4-2.0) mmol/L Calcium (8.5-10.1) mg/dL Phosphorus (2.5-4.9) mg/dL Magnesium (1.6-2.6) mg/dL Total Bilirubin (0.20-1.00) mg/dL AST (15-37) U/L ALT (16-61) U/L Alkaline Phosphatase (45-117) U/L Troponin I (<0.045) ng/mL Total Protein (6.4-8.2) g/dL Albumin (3.2-5.0) g/dL Globulin (2.2-4.2) g/dL Albumin/Globulin Ratio (0.9-2.4) RATIO Lipase (73-393) U/L Urine Color (Yellow) Urine Clarity (Clear) Urine pH (5.0 - 8.0) Ur Specific [place] (1.002-1.030) Urine Protein (Negative) mg/dl Urine Glucose (UA) (Normal) mg/dl Urine Ketones (Negative) mg/dl Urine Occult Blood (Negative) /ul Urine Nitrite (Negative) Urine Bilirubin (Negative) mg/dL Urine Urobilinogen (Normal) mg/dl Ur Leukocyte Esterase (Negative) /ul Urine RBC (0-5) /hpf Urine WBC (0-5) /hpf Ur Squamous Epith Cells (0-5) /hpf Amorphous Sediment Urine Bacteria (None Seen) /hpf Urine Mucus (<or=2+) /hpf Urine Opiates Screen (< 300 ng/mL) Urine Methadone Screen (< 300 ng/mL) Ur Barbiturates Screen (< 200 ng/mL) Ur Phencyclidine Scrn (< 25 ng/mL) Ur Amphetamines Screen (<1000 ng/mL) U Methamphetamin-MDMA (< 500 ng/mL) U Benzodiazepines Scrn (< 200 ng/mL) Urine Cocaine Screen (< 300 ng/mL) U Cannabinoids Screen (< 50 ng/mL) Ur Drug Screen Comment Ethyl Alcohol mg/dL Acetone Level (NEG) POC Glucose (70-110) mg/dL none Operations: None Procedures: Stress test - 1. Rest and stress SPECT Cardiolite nuclear imaging demonstrate myocardial perfusion changes potentially compatible with the effects of gastrointestinal tracer uptake/detraction and physiologic apical thinning although an area of previous myocardial injury/infarction involving portions of the distal inferior as well as portions of the apical segments cannot necessaril y be excluded. There are no myocardial perfusion changes considered diagnostic for associated stress-induced myocardial ischemia. 2. The gated Cardiolite study reports an LVEF of 56 %. 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 He had been on an alcohol binge the preceding 5 days and was drinking 1/5 of vodka daily and not eating. He got short of breath while taking a shower and had to sit down multiple times. He also had abdominal discomfort and several episodes of emesis that morning. His last drink was the preceding evening at 6 or 7 PM. In the past he had been taking Valium regularly but discontinued this. His doctor would no longer prescribe it. He has been on Paxil which was stopped over a period of 9 days and he went through acute withdrawal. He is currently taking Paxil 15 mg daily. His mother recently and he started the Paxil again for depression. He has been to AA in the past. Lab in the emergency department revealed an elevated hemoglobin at 17 secondary to dehydration. The chloride was low at 95 and the serum bicarb was low at 18. The anion gap was increased to 24. Lactic acid was 9.0. Total bilirubin was increased at 1.1 and the AST was 43 with an ALT of 74 and a normal alkaline phosphatase. Troponin was less than 0.015. UA had no WBCs. Urine drug screen was negative. Ethyl alcohol level was 31. Acetone was negative. There were ketones in the urine. Chest x-ray revealed no evidence of infiltrates, pleural effusions or pulmonary vascular congestion. PE was not consistent with any infection. He was admitted to the hospital with lactic acidosis due to dehydration, alcoholic ketosis and excessive alcohol intake. IV fluids were ordered and he was placed on a CIWA protocol even though he denied any hx of DT's or seizures. Lab was repeated the following morning and the hemoglobin was 14, down from 17 following hydration. Serum bicarb was still mildly decreased at 19 and the anion gap was 17. Lactic acid had steadily decreased with hydration. Serial cardiac enzymes were negative. He had a treadmill nuclear stress test which was negative for ischemia but did show possible scar in the inferior wall. I had a long discussion with the patient and his at admission and again on the day of DC. He has an addictive personality and he has suffered from anxiety and depression for a long time. He has not been sleeping well and feels chronically fatigued. He has been missing work because of his drinking. Not currently receiving any counselling. He has a plan to attend a 12 step program at his [facility]. He will continue the Paxil 15 mg he is currently taking and he was given a RX for Trazodone and instructed to take 50-100 mg Q HS for insomnia. This has worked for him in the past. I encouraged his to consider attending an Al-[employer] meeting. The pt agreed to talk to his more about how he is feeling. He was discharged home and will follow up with his PCP in 1-2 weeks. would obtain a follow up BMP and if he is still acidotic with a low serum bicarb would consider a referral to nephrology to be evaluated for possible RTA. PHYSICAL EXAM: GENERAL: alert, oriented X 3, Cooperative, NAD, better color today and looks more rested ORAL: moist mucosa, no mucosal lesions NECK: No JVD, supple, trachea midline LUNGS: CTA, symmetric chest expansion, not tachypneic HEART: RRR, Normal S1 and S2, no rub, no gallop ABDOMEN: soft, NT, ND, BS present, no guarding with palpation EXTREMITIES: no edema, no cyanosis, no calf tenderness SKIN: No rashes, no breakdown NEUROLOGIC: no focal neurologic deficits, no tremors PSYCH: appropriate, normal affect, pleasant This note was generated with [employer] dictation software. It may contain incorrect words, spelling, and punctuation that were not noted in checking the note before signing. Patient Problems: Active and Suspected Problems Lactic acidosis (Acute) Dehydration (Acute) Hypokalemia (Acute) Abnormal LFTs (Acute) - Physical Exam Vital Signs Temp Pulse Resp BP Pulse Ox 98.1 F 94 18 139/71 H 97 03/15/19 13:45 03/15/19 13:45 03/15/19 13:45 03/15/19 13:45 03/15/19 13:45 Oxygen Delivery Method Room Air Weight: 256 lb 13.416 oz Body Mass Index (BMI) 34.8 Finger Stick Blood Glucose 97 Intake and Output for Last 24 Hours 03/13/19 03/14/19 03/15/19 23:59 23:59 23:59 Intake Total 4463 / 4463 1873 / 1873 Output Total 1000 / 1000 800 / 800 Balance 3463 / 3463 1073 / 1073 Laboratory Tests Past 24 Hrs 03/14/19 03/14/19 03/14/19 15:35 17:40 17:40 WBC RBC Hgb Hct MCV MCH MCHC RDW RDW Differential Plt Count MPV Immature Gran % (Auto) Neut % (Auto) Lymph % (Auto) [place] % (Auto) Eos % (Auto) Baso % (Auto) Absolute Neuts (auto) Absolute Lymphs (auto) Total Counted PT INR APTT Sodium Potassium Chloride Carbon Dioxide Anion Gap BUN Creatinine Estim Creat Clear Calc Est GFR (MDRD) Af Amer Est GFR (MDRD) Non-Af BUN/Creatinine Ratio Glucose Lactic Acid Calcium Phosphorus 3.7 Magnesium 1.5 L Troponin I Urine Color Yellow Urine Clarity Sl. Cloudy Urine pH 6.0 Ur Specific [place] 1.015 Urine Protein Negative Urine Glucose (UA) Normal Urine Ketones 5 H Urine Occult Blood Negative Urine Nitrite Negative Urine Bilirubin Negative Urine Urobilinogen Normal Ur Leukocyte Esterase Negative Urine RBC 0 SEEN Urine WBC 0 SEEN Ur Squamous Epith Cells 0-5 SEEN Amorphous Sediment 1+ URATE Urine Bacteria 0 SEEN Urine Mucus 0 SEEN Urine Opiates Screen NEGATIVE Urine Methadone Screen NEGATIVE Ur Barbiturates Screen NEGATIVE Ur Phencyclidine Scrn NEGATIVE Ur Amphetamines Screen NEGATIVE U Methamphetamin-MDMA NEGATIVE U Benzodiazepines Scrn NEGATIVE Urine Cocaine Screen NEGATIVE U Cannabinoids Screen NEGATIVE Ur Drug Screen Comment 03/14/19 03/14/19 03/14/19 17:50 17:50 20:25 WBC RBC Hgb Hct MCV MCH MCHC RDW RDW Differential Plt Count MPV Immature Gran % (Auto) Neut % (Auto) Lymph % (Auto) [place] % (Auto) Eos % (Auto) Baso % (Auto) Absolute Neuts (auto) Absolute Lymphs (auto) Total Counted PT INR APTT Sodium Potassium Chloride Carbon Dioxide Anion Gap BUN Creatinine Estim Creat Clear Calc Est GFR (MDRD) Af Amer Est GFR (MDRD) Non-Af BUN/Creatinine Ratio Glucose Lactic Acid 2.6 H Calcium Phosphorus Magnesium Troponin I < 0.015 < 0.015 Urine Color Urine Clarity Urine pH Ur Specific [place] Urine Protein Urine Glucose (UA) Urine Ketones Urine Occult Blood Urine Nitrite Urine Bilirubin Urine Urobilinogen Ur Leukocyte Esterase Urine RBC Urine WBC Ur Squamous Epith Cells Amorphous Sediment Urine Bacteria Urine Mucus Urine Opiates Screen Urine Methadone Screen Ur Barbiturates Screen Ur Phencyclidine Scrn Ur Amphetamines Screen U Methamphetamin-MDMA U Benzodiazepines Scrn Urine Cocaine Screen U Cannabinoids Screen Ur Drug Screen Comment 03/14/19 03/14/19 03/15/19 22:18 23:38 05:40 WBC 5.3 RBC 4.46 L Hgb 14.0 Hct 40.3 MCV 90.4 MCH 31.4 MCHC 34.7 RDW 13.1 RDW Differential 42.2 Plt Count 232 MPV 8.5 Immature Gran % (Auto) 0.000 Neut % (Auto) 45.8 L Lymph % (Auto) 42.1 H [place] % (Auto) 8.8 Eos % (Auto) 2.5 Baso % (Auto) 0.8 Absolute Neuts (auto) 2.4 Absolute Lymphs (auto) 2.21 Total Counted Not Reportable PT INR APTT Sodium Potassium Chloride Carbon Dioxide Anion Gap BUN Creatinine Estim Creat Clear Calc Est GFR (MDRD) Af Amer Est GFR (MDRD) Non-Af BUN/Creatinine Ratio Glucose Lactic Acid 2.2 H Calcium Phosphorus Magnesium Troponin I < 0.015 Urine Color Urine Clarity Urine pH Ur Specific [place] Urine Protein Urine Glucose (UA) Urine Ketones Urine Occult Blood Urine Nitrite Urine Bilirubin Urine Urobilinogen Ur Leukocyte Esterase Urine RBC Urine WBC Ur Squamous Epith Cells Amorphous Sediment Urine Bacteria Urine Mucus Urine Opiates Screen Urine Methadone Screen Ur Barbiturates Screen Ur Phencyclidine Scrn Ur Amphetamines Screen U Methamphetamin-MDMA U Benzodiazepines Scrn Urine Cocaine Screen U Cannabinoids Screen Ur Drug Screen Comment 03/15/19 03/15/19 05:40 05:40 WBC RBC Hgb Hct MCV MCH MCHC RDW RDW Differential Plt Count MPV Immature Gran % (Auto) Neut % (Auto) Lymph % (Auto) [place] % (Auto) Eos % (Auto) Baso % (Auto) Absolute Neuts (auto) Absolute Lymphs (auto) Total Counted PT 12.4 INR 0.9 APTT 27.2 Sodium 140 Potassium 3.8 Chloride 104 Carbon Dioxide 19.0 L Anion Gap 17 H BUN 8 Creatinine 0.96 Estim Creat Clear Calc 106.66 Est GFR (MDRD) Af Amer 109 Est GFR (MDRD) Non-Af 90 BUN/Creatinine Ratio 8.4 L Glucose 147 H Lactic Acid Calcium 7.7 L Phosphorus Magnesium Troponin I Urine Color Urine Clarity Urine pH Ur Specific [place] Urine Protein Urine Glucose (UA) Urine Ketones Urine Occult Blood Urine Nitrite Urine Bilirubin Urine Urobilinogen Ur Leukocyte Esterase Urine RBC Urine WBC Ur Squamous Epith Cells Amorphous Sediment Urine Bacteria Urine Mucus Urine Opiates Screen Urine Methadone Screen Ur Barbiturates Screen Ur Phencyclidine Scrn Ur Amphetamines Screen U Methamphetamin-MDMA U Benzodiazepines Scrn Urine Cocaine Screen U Cannabinoids Screen Ur Drug Screen Comment Discharge Activity: - - Get in the habit of getting some exercise everyday. It helps with anxiety control and gives you energy. Return to work on:: 03/16/19 Call your doctor if you observe: Shortness of breath, Dizziness, Fainting spells, Swelling in the ankles, Chest pain Home Medications: Medications to take at Discharge Aspirin [Aspir 81] 81 mg PO DAILY 03/14/19 Clopidogrel Bisulfate [Clopidogrel] 75 mg PO DAILY 03/14/19 Folic Acid 1 mg PO DAILY 03/14/19 Icosapent Ethyl [Vascepa] 2 gm PO BID 03/14/19 Metoprolol Tartrate 50 mg PO BID 03/14/19 Multivitamin,Stress Formula [Stress Formula] 1 ea PO DAILY 03/14/19 Potassium 99 mg PO DAILY 03/14/19 Smz/Tmp Ds [Bactrim Ds] 1 tab PO BID 03/14/19 Thiamine HCl [Vitamin B-1] 250 mg PO DAILY 03/14/19 traZODone [Desyrel] 50 - 100 mg PO QHS #45 tab 03/15/19 Following Prescrptions Were Given to Patient: traZODone [Desyrel] 50 - 100 mg PO QHS #45 tab Transmission Status: Pending to [facility] Primary Care Physician: Sudarshan Doctor,Out of [Primary Care Provider] - Please follow up with your Primary Care Physician in: 1-2 weeks Patient Instructions: Your Body's Response to Anxiety, Depression Affects Your Mind and Body, What Can Cause Depression?, Depression: Tips to Help Yourself, Understanding Alcoholism, Alcoholism: Myths and Facts, Alcoholism: How to be Part of the Solution, Alcoholism: Resources for Family and Friends, Alcoholism: Getting Help, Understanding Anxiety Disorders Disposition: Home Minutes spent on discharge:: 40 Patient Condition:: Stable Medical Necessity - Tobacco Use Smoking Status: Never smoker Tobacco Use: Non-smoker Meaningful Use Info Meaningful Use Diagnoses (Choose all that apply): None applicable Code Visit Inpatient E&M: 49555 Disch Hosp
== END 2019-03-15 17:18 | disposition home or self-care (01) | DRG 641 ==
LOC: ED 09:46 → PCU 10:56
PROVIDERS: Admitting Provider Internal Medicine; Emergency Provider Emergency Medicine; Referring Provider Internal Medicine; Visit Provider Internal Medicine
DX: E87.2 Acidosis (principal); E86.0 Dehydration; I25.2 Old myocardial infarction; Y90.1 Blood alcohol level of 20-39 mg/100 ml; E87.6 Hypokalemia; R94.5 Abnormal results of liver function studies; R07.9 Chest pain, unspecified; G47.00 Insomnia, unspecified; I10 Essential (primary) hypertension; F32.9 Major depressive disorder, single episode, unspecified; F10.20 Alcohol dependence, uncomplicated; F41.9 Anxiety disorder, unspecified
CPT/HCPCS: 36415; 71045; 78452; 80048; 80053; 80307; 80320; 81001; 82009; 82962; 83605; 83690; 83735; 84100; 84484; 85025; 85610; 85730; 93005; 93017; 99285; A9500; J7030; A4216; G0480; J2405

== ENCOUNTER 2019-05-10 11:20 | Emergency (ER) | payer OTHER, SELFPAY ==
[2019-03-14 10:50] VITALS: BMI 34.8
[2019-05-10 11:20] VITALS: BP 128/87; PULSE 80; RESP 16; TEMP 36.1; O2SAT 95; BMI 36.6
--- NOTE | 2019-05-10 11:47 | EKG12_ITS ---
Test Reason : Blood Pressure : / mmHG Vent. Rate : 070 BPM Atrial Rate : 070 BPM P-R Int : 152 ms QRS Dur : 094 ms QT Int : 426 ms P-R-T Axes : 034 009 037 degrees QTc Int : 460 ms Normal sinus rhythm Inferior infarct (cited on or before 14-MAR-2019), age undetermined Abnormal ECG Confirmed by ALMAZ SARMIENTO ([id number]), managing editor BOZENA CHEEK ([id number]) on 05/11/2019 2:21:51 PM Referred By: QUETA Confirmed By:ALMAZ SARMIENTO
--- NOTE | 2019-05-10 11:50 | ED.VISSUMM ---
- ER Visit Summary Date of Service: 05/10/19 Chief Complaint: Patient states he was on alcohol drinking drainage for the last 3 days and just does not feel well with epigastric pain with nausea and vomiting History of Present Illness: The patient is a 44 M history of alcoholism. Also prior [place] without stent on Plavix with a history of hypertension high cholesterol. Denies any prior abdominal surgery. States his been drinking heavily about 1/5 of alcohol daily the last 3 days. With developing epigastric pain nausea and vomiting. He denies diarrhea or melena. He denies any hematemesis or fever. No chest pain. Physical Examination: Middle-aged male. No acute distress. Vital signs are stable and afebrile. present at bedside. HEENT exam unremarkable atraumatic. Pupils round reactive light. Moist use membranes. Neck nontender no lymphadenopathy. Lungs clear to auscultation bilaterally. Heart regular rhythm no murmur. Abdomen soft. Epigastric tenderness. No rebound, guarding or rigidity. No Sultana sign. Right upper quadrant right lower quadrant unremarkable. No McBurney point tenderness. No signs of obstruction. Positive bowel sounds. Patient moving all 4 extremities. Neurovascular intact. Nontender. No edema. Back nontender. Neurologically is awake and alert with no focal motor deficits. Test Results: White count 10. Hemoglobin 17. Electrolytes unremarkable BUN 21 creatinine 1. Gap 15. Liver enzymes ALT and AST are slightly elevated. Otherwise unremarkable. Lipase normal. EKG sinus rhythm rate 70 no acute change from prior EKG Emergency Department Course and Treatment: Patient treated with IV fluids and Zofran. IV Protonix. Repeat exam at 1425 PM the patient is doing well. Abdomen is benign. He is received a liter of normal saline and Zofran for nausea plus IV Protonix. His abdomen is completely nontender at this time. He is feeling improved. He will be discharged home with outpatient follow-up. He is currently in a alcohol treatment program. Treatment Plan: Zofran as needed for nausea. Protonix. Follow-up. Disposition: Discharge Impression: Acute on chronic alcoholism with a recent drinking binge Epigastric abdominal pain with nausea and vomiting This note was generated with [employer] dictation software. It may contain incorrect words, spelling, and punctuation that were not noted in review of the chart prior to signing ED Disposition - Plan for ED Patient: Referrals: [facility] Doctor,Out of [Primary Care Provider] -
[2019-05-10] MEDS: 0.9% Normal Saline 1,000 ML 1000 ML IV (11:54)
[2019-05-10] MEDS: Ondansetron 4 MG/2 ML Vial IV (11:55)
[2019-05-10 12:02] LABS: Absolute Lymphocyte Count 1.49 X10^3/uL (0.83-4.51); Absolute Neutrophil Count 8.1 X10^3/uL (2.0-7.7); Basophil# 0.07 X10^3/uL; Basophil% 0.7 % (0-1); Eosinophil# 0.01 X10^3/uL; Eosinophils% 0.1 % (0-5); Hematocrit 49.9 % (40-54); Hemoglobin 17.4 g/dL (13.0-16.5); Lymphocyte # 1.49 X10^3/ul (4.0); Lymphocyte % 14.2 % (19-41); Mean Corp Hgb Conc 34.9 g/dL (32-36); Mean Corpuscular Hgb 30.1 pg (27.0-32.0); Mean Corpuscular Volume 86.3 fL (80-94); Mean Platelet Vol. 8.7 fl (6.2-12.0); Monocyte# 0.74 X10^3/uL; Monocyte% 7.1 % (0-10); NRBC Flagged by Analyzer 0 % (0-5); Neutrophil # 8.13 X10^3/uL (2.7-7.7); Neutrophil % 77.5 % (47-70); Platelet Count 284 K/mm3 (150-450); RBC Distribution Width CV 13.2 % (11.6-14.6); RBC Distribution Width SD 41.7 fl (35.1-43.9); Red Blood Count 5.78 M/mm3 (4.6-6.2); White Blood Count 10.5 K/mm3 (4.4-11.0)
[2019-05-10 12:12] LABS: AST(SGOT) 55 U/L (15-37); Alanine Aminotransfer ALT/SGPT 100 U/L (16-61); Albumin, Serum 4.3 g/dL (3.2-5.0); Alkaline Phosphatase 95 U/L (45-117); Anion Gap 15 (5-15); BUN 21 mg/dL (7-18); BUN/Creat Ratio 20.6 RATIO (10-20); Bilirubin, Direct 0.27 mg/dL (0.00-0.30); Calcium,Total 9.6 mg/dL (8.5-10.1); Chloride 97 mmol/L (98-107); Creatinine, Serum 1.02 mg/dL (0.70-1.30); EST Glomerular Filtration Rate 84 mL/min (>60); Est Glom Filt Rate - Afr Amer 101 mL/min (>60); Estimated Creatinine Clearance 100.38 ml/min; Globulin 4.4 g/dL (2.2-4.2); Glucose 118 mg/dL (74-106); Lipase 86 U/L (73-393); Potassium 3.9 mmol/L (3.5-5.1); Protein, Total 8.7 g/dL (6.4-8.2); Sodium Level 135 mmol/L (136-145)
--- NOTE | 2019-05-10 14:38 | ED.DEP ---
ED Disposition - Plan for ED Patient: Disposition: Home or Assisted Living Instructions: Alcohol Abuse, GASTRITIS (Adult) Prescriptions: Pantoprazole Sodium [Protonix] 40 mg PO DAILY #30 tab Prescription Printed Ondansetron [Zofran Odt] 4 mg PO Q8H PRN PRN #10 tab PRN Reason: Nausea Prescription Printed Referrals: [facility] Doctor,Out of [Primary Care Provider] - 3-5 Days Additional Instructions: Return if feeling worse. Plenty fluids and rest. Decrease Zofran as needed for nausea. Protonix for irritation of your stomach in case you have like an alcoholic gastritis.
[2019-05-10 14:53] VITALS: BP 149/93; PULSE 80; RESP 16; O2SAT 94
== END 2019-05-10 14:55 | disposition home or self-care (01) ==
PROVIDERS: Emergency Provider Emergency Medicine
DX: F10.20 Alcohol dependence, uncomplicated (principal); K29.20 Alcoholic gastritis without bleeding; Y90.9 Presence of alcohol in blood, level not specified; I25.2 Old myocardial infarction; I10 Essential (primary) hypertension; E78.00 Pure hypercholesterolemia, unspecified; Z79.02 Long term (current) use of antithrombotics/antiplatelets; Z79.82 Long term (current) use of aspirin; Z79.899 Other long term (current) drug therapy
CPT/HCPCS: 80048; 80076; 83690; 85025; 93005; 96361; 96365; 96375; 99285; J7030; A4216; J2405

== ENCOUNTER → 2019-05-20 08:33 | Outpatient (CLI) | payer OTHER, SELFPAY ==
[2019-05-10 11:20] VITALS: BMI 36.6
[2019-05-20 09:17] LABS: Hemoglobin A1c 5.3 % (4.2-6.3)
[2019-05-20 09:18] LABS: AST(SGOT) 20 U/L (15-37); Alanine Aminotransfer ALT/SGPT 49 U/L (16-61); Albumin, Serum 3.5 g/dL (3.2-5.0); Alkaline Phosphatase 70 U/L (45-117); Bilirubin, Direct 0.07 mg/dL (0.00-0.30); Cholesterol 242 mg/dL (200); Ferritin 433 ng/mL (26-388); Globulin 3.9 g/dL (2.2-4.2); High Density Lipoprotein 44 mg/dL; Iron 48 ug/dL (65-175); Iron Binding Capacity,Total 339 ug/dL (250-450); PERCENT IRON SATURATION 14.2 % (15.0-55.0); Protein, Total 7.4 g/dL (6.4-8.2); Thyroid Stim Hormone (TSH) 2.11 uIU/mL (0.358-3.74); Triglycerides 368 mg/dL; Very Low Density Lipoprotein 74 mg/dL (5-40)
== END ==
DX: R94.5 Abnormal results of liver function studies (principal); E78.5 Hyperlipidemia, unspecified
CPT/HCPCS: 36415; 80061; 80076; 82728; 83036; 83540; 83550; 84443

== ENCOUNTER → 2020-11-21 04:31 | Outpatient (CLI) | payer OTHER, SELFPAY ==
[2020-11-21 04:44] LABS: Hematocrit 39.9 % (40-54); Hemoglobin 13.9 g/dL (13.0-16.5); Mean Corp Hgb Conc 34.8 g/dL (32-36); Mean Corpuscular Hgb 32.3 pg (27.0-32.0); Mean Corpuscular Volume 92.6 fL (80-94); Mean Platelet Vol. 10.1 fl (6.2-12.0); POSITIVE COUNT YES; POSITIVE MORPHOLOGY YES; Platelet Count 117 K/mm3 (150-450); RBC Distribution Width CV 14.6 % (11.6-14.6); RBC Distribution Width SD 49.5 fl (35.1-43.9); Red Blood Count 4.31 M/mm3 (4.6-6.2); White Blood Count 17.8 K/mm3 (4.4-11.0)
[2020-11-21 04:47] LABS: Differential Indicated MANUAL DIFF
[2020-11-21 05:11] LABS: Absolute Lymphocyte Count 1.96 X10^3/uL (0.83-4.51); Absolute Neutrophil Count 15.1 X10^3/uL (2.0-7.7); Lymphocyte 11 % (19-41); Metamyelocyte 1 % (0-1); Monocyte 3 % (0-10); Neutrophil-Band 8 % (0-5); Neutrophil-Segmented 77 % (47-70); Platelet Estimate ADEQUATE (ADEQ); Total Cells Counted 100 (MANUAL DIFF)
[2020-11-21 05:12] LABS: Red Cell Morphology NORM C+C NORMAL (NORM C&C)
[2020-11-21 05:19] LABS: ALB/GLOB Ratio 0.6 RATIO (0.9-2.4); AST(SGOT) 37 U/L (15-37); Alanine Aminotransfer ALT/SGPT 41 U/L (16-61); Albumin, Serum 2.6 g/dL (3.2-5.0); Alkaline Phosphatase 103 U/L (45-117); Amylase 69 U/L (25-115); Anion Gap 12 (5-15); BUN 45 mg/dL (7-18); BUN/Creat Ratio 5.9 RATIO (10-20); Calcium,Total 8.8 mg/dL (8.5-10.1); Chloride 87 mmol/L (98-107); EST Glomerular Filtration Rate 8 mL/min (>60); Est Glom Filt Rate - Afr Amer 10 mL/min (>60); Globulin 4.7 g/dL (2.2-4.2); Glucose 148 mg/dL (74-106); Lipase 1054 U/L (73-393); Potassium 3.1 mmol/L (3.5-5.1); Protein, Total 7.3 g/dL (6.4-8.2); Sodium Level 126 mmol/L (136-145)
[2020-11-21 05:25] LABS: Creatinine, Serum 7.61 mg/dL (0.70-1.30)
[2020-11-21 13:07] LABS: Pathologist Review Reviewed
== END ==
DX: R10.9 Unspecified abdominal pain (principal)
CPT/HCPCS: 36415; 80053; 82150; 83690; 85025

== ENCOUNTER 2020-11-21 11:07 | Inpatient (IN) | payer OTHER, SELFPAY ==
[2020-11-21] VITALS (22 sets, daily range): BP systolic 73–115; BP diastolic 42–87; PULSE 72–86; RESP 10–20; TEMP 35.7–37.1; O2SAT 93–100; BMI 38.6; BMI 35.3; BMI 35.2
--- NOTE | 2020-11-21 12:22 | US_ITS ---
STUDY: RENAL ULTRASOUND - COMPLETE REASON FOR EXAM: Male, 45 years old. Acute kidney injury TECHNIQUE: Ultrasound evaluation of the kidneys was performed with real-time and static mendoza-scale imaging. COMPARISON: None. FINDINGS: RIGHT KIDNEY: Normal location of the right kidney, which is normal in size. The right kidney measures 11.5 cm x 5.7 cm x 7 cm. There is a normal cortex of the right kidney. The renal cortex measures 1.6 cm. There is no right renal mass or cyst. There are no right renal calculi. There is no right hydronephrosis. DISTAL RIGHT URETER: There is non-visualization of the distal right ureter. There is no demonstrated right ureterovesical junction calculus. There is no demonstrated right ureteral jet. LEFT KIDNEY: Normal location of the left kidney, which is normal in size. The left kidney measures 12.4 cm x 5.4 cm x 6.7 cm. There is a normal cortex of the left kidney. The renal cortex measures 1.7 cm. There is no left renal mass or cyst. There are no left renal calculi. There is no left hydronephrosis. DISTAL LEFT URETER: There is non-visualization of the distal left ureter. There is no demonstrated left ureterovesical junction calculus. There is no demonstrated left ureteral jet. BLADDER: The bladder is not adequately distended for assessment. US/Kidney and Bladder IMPRESSION: Normal ultrasound of the kidneys. Electronically Signed: Francis Goodwin MD at 13:43 EST , Service support ,
--- NOTE | 2020-11-21 12:23 | ED.VISSUMM ---
- ER Visit Summary Date of Service: 11/21/20 Chief Complaint: Abdominal pain History of Present Illness: The patient is a 45 M who presents with abdominal pain that has been getting worse over the past 4 days. Patient describes the pain as stabbing. Patient states pain is generalized. Patient states the pain has been constant. Patient states the pain is worse with standing. Patient states the pain radiates into his back. Patient also admits to some generalized weakness. Patient admits to nausea and vomiting. Patient denies any diarrhea. Patient admits to urinary urgency but denies any dysuria or hematuria. Physical Examination: Vital signs are stable. Patient is afebrile. Patient is in no acute distress. Oral mucosa is pink and moist. Neck is supple. Trachea is midline. There is no JVD. Heart was regular rate and rhythm. Lungs are clear and equal bilaterally. Abdomen is soft. Bowel sounds are normal. There is left upper quadrant and left lower quadrant tenderness. There is no rebound or guarding noted. Cranial nerves II through XII are intact. There are no focal motor or sensory deficits noted. Extremities are intact. There is no calf tenderness or edema. Test Results: Patient had labs drawn earlier this morning. CBC shows a leukocytosis of 17.8. Platelets were 117. Comprehensive metabolic profile showed a sodium of 126, potassium of 3.1, and chloride of 87. BUN was 45 creatinine was 7.61. Lipase was slightly elevated at 1054. Emergency Department Course and Treatment: Patient was given morphine and Zofran. Case was discussed with the hospitalist. He recommended obtaining a triglyceride level. This was obtained and was only slightly elevated. He also recommended obtaining a kidney ultrasound. This was done and was within normal limits. This was interpreted by the radiologist and reviewed by myself. He will admit the patient to his service. Patient and family understood and were agreeable with the plan. All questions were answered. Disposition: Admit to hospital Impression: 1. Acute pancreatitis 2. Acute kidney injury 3. Hyponatremia This note was generated with [employer] software. It may contain incorrect words, spelling, and punctuation that were not noted in review of the chart prior to signing ED Disposition - Plan for ED Patient: Disposition: Acute Care [facility] Diagnosis: Acute kidney injury, Acute pancreatitis
[2020-11-21 12:47] LABS: Triglycerides 452 mg/dL
[2020-11-21] MEDS: 0.9% Normal Saline 1,000 ML 1000 ML IV (12:54)
[2020-11-21] MEDS: Morphine 4 MG/ML Syringe IV (12:54)
[2020-11-21] MEDS: Ondansetron 4 MG/2 ML Vial IV (12:55)
[2020-11-21 13:40] LABS: ALB/GLOB Ratio 0.5 RATIO (0.9-2.4); AST(SGOT) 37 U/L (15-37); Alanine Aminotransfer ALT/SGPT 39 U/L (16-61); Albumin, Serum 2.7 g/dL (3.2-5.0); Alkaline Phosphatase 115 U/L (45-117); Anion Gap 16 (5-15); BUN 53 mg/dL (7-18); Calcium,Total 9.2 mg/dL (8.5-10.1); Chloride 86 mmol/L (98-107); Creatinine, Serum 8.79 mg/dL (0.70-1.30); EST Glomerular Filtration Rate 7 mL/min (>60); Est Glom Filt Rate - Afr Amer 8 mL/min (>60); Estimated Creatinine Clearance 11.53 ml/min; Globulin 5.3 g/dL (2.2-4.2); Glucose 120 mg/dL (74-106); Lipase 937 U/L (73-393); Potassium 3.2 mmol/L (3.5-5.1); Sodium Level 126 mmol/L (136-145)
--- NOTE | 2020-11-21 14:02 | CON.PCM_ITS ---
Consultation - Renal PCP/ Referring MD: Requesting physician: [] Primary care physician: JEFF SEGURA - History of Present Illness History of Present Illness: The patient is a 45 year old M PMH of alcoholism, depression, HTN. Patient presented with abdominal pain in the epigastric area radiating to his back since Wednesday. he vomited once or twice. Not able to eat since yesterday Patient said he had the urge to urinate yesterday but was not able to pass urine. In ED , Cr is 8.7 g/dL. hc03 16, K 3.2 and Na 126 mmol/L. Renal US is negative for hydronephrosis. Denied NSAID use. No IV contrast exposure as per the patient ( patient said the CT abd/pelvis he had recently sat [facility] was without IV contrast) Lipase came back elevated , TG is slightly elevated at 550 No skin rash. No joints pain. No diarrhea ROS: 12 systems review is negative except anorexia , anuria. abdominal pain and some nausea [] - Allergies Allergies: Allergies prednisone Adverse Reaction (Verified 11/21/20 11:08) Other RAPID HR AND CANNOT SLEEP - Past Medical History Past Medical History (Chronic Problems): Chronic Problems Insomnia (Chronic) Anxiety (Chronic) Hypertension (Chronic) Gout (Chronic) Depression (Chronic) Alcoholism /alcohol abuse (Chronic) - Past Surgical History Surgical History: noncontributory - Social History Smoking Status: Never smoker - Family History Maternal History Items: - - Grandfather was an alcoholic Patient Problems: Active and Suspected Problems Acute kidney injury (Acute) Acute pancreatitis (Acute) - Physical Exam Vitals/I&O's: Vital Signs Temp Pulse Resp BP Pulse Ox 96.2 F L 82 16 107/46 L 96 11/21/20 11:17 11/21/20 11:17 11/21/20 11:17 11/21/20 11:17 11/21/20 11:17 Oxygen Delivery Method Room Air Weight: 129.274 kg Body Mass Index (BMI) 38.6 Finger Stick Blood Glucose 97 General: Alert, Oriented x3 HEENT: Atraumatic Oral: Moist Mucosa Neck: Supple, No JVD Lungs: Clear to auscultation Cardiovascular: Regular rate, Regular Rhythm, Normal S1, Normal S2 Abdomen: Bowel Sounds Present, Soft, Tender Extremities: No clubbing, No cyanosis, No edema Skin: No rashes Musculoskeletal: No Tenderness to Palpation of Joints or Extremities Lymphatic: No Cervical, Supraclavicular, or Inguinal Adenopathy Neurological: Cranial nerves II-XII grossly intact, Neuro grossly intact Psych/Mental Status: Appropriate Laboratory Results 11/21/20 12:03: Triglycerides 452 H 11/21/20 12:03: Sodium 126 L, Potassium 3.2 L, Chloride 86 L, Carbon Dioxide 24.0, Anion Gap 16 H, BUN 53 H, Creatinine 8.79 H*, Estim Creat Clear Calc 11.53, Est GFR (MDRD) Af Amer 8 L, Est GFR (MDRD) Non-Af 7 L, BUN/Creatinine Ratio 6.0 L, Glucose 120 H, Calcium 9.2, Total Bilirubin 1.20 H, AST 37, ALT 39, Alkaline Phosphatase 115, Total Protein 8.0, Albumin 2.7 L, Globulin 5.3 H, Albumin/Globulin Ratio 0.5 L, Lipase 937 H Assessment/Plan All Active Problems Acute kidney injury (Acute) Acute pancreatitis (Acute) Lactic acidosis (Acute) Dehydration (Acute) Hypokalemia (Acute) Abnormal LFTs (Acute) 1- Acute kidney injury . Cr was 1.0 mg/dl in April 2019 BRANDON might be ATN induced by pancreatitis . Patient also could have autoimmune disease or vasculitis Cr is up to 8.7 mg/dl.Anuric No urgent need for GEOTECHNICIAL PROPERTIES TECHNICIAN Will check UA along with urine indices Will check C3/C4/FREDIS/ANCA/Anti GBM, UPEP and SPEP Hold home ACEI Check RFP in am 2- Hyponatremia : likely from BRANDON and fluid retention along with beer potomania Na 126. No need for 3% NaCl Might need GEOTECHNICIAL PROPERTIES TECHNICIAN to correct hyponatremia if remains anuric 3- Metabolic acidosis: from BRANDON Will start HC03 drip 4- Pancreatitis. likely from alcoholism NPO. management as per the primary service Thank you for the consult Renal team will continue to follow. please call if any question at [phone] d/w Dr. Angela Nelson MD
--- NOTE | 2020-11-21 14:09 | ED.RN ---
hospitalist remains in room. hand launderer to see pt in ed
--- NOTE | 2020-11-21 14:15 | NURSING ---
PCU TERELETSKY PANCREATITIS
--- NOTE | 2020-11-21 14:55 | PCM.HP.STD ---
Problem List (1) Acute kidney injury Status: Acute (2) Acute pancreatitis Status: Acute (3) Insomnia Status: Chronic (4) Anxiety Status: Chronic (5) Lactic acidosis Status: Acute (6) Hypertension Status: Chronic (7) Gout Status: Chronic (8) Depression Status: Chronic (9) Hypokalemia Status: Acute (10) Abnormal LFTs Status: Resolved (11) Alcoholism /alcohol abuse Status: Chronic History of Present Illness Date of Admission: 11/21/20 Chief Complaint: Abdominal pain, low urine output, abnormal labs. The patient is a 45 year old M who presents to the emergency room due to abdominal pain, low urine output and abnormal labs. Patient states he began to have abdominal pain on Wednesday afternoon which was initially localized to his left upper abdomen however he states he ate a bowl of cereal and about an hour later had diffuse abdominal pain. He denies nausea, vomiting. He states he saw his primary care provider on Wednesday who ordered a CT without contrast as well as lab work which he did not complete until this morning. He was told by his PCP that his CT scan showed pancreatitis and following lab work early this morning, was referred to the emergency room due to elevated creatinine. Patient states beginning Wednesday night, he has not been able to urinate and states he is only urinated 1 time since Wednesday which was a small amount and dark in color. He denies history of difficulty urinating. Denies NSAID use. Denies chronic kidney disease. He denies history of pancreatitis. He reports intermittent binge drinking. He states he is not a daily drinker however he intermittently drinks very heavily. Denies history of withdrawal. States his last drink was over the weekend. He has a past medical history of hypertension, depression, chewing tobacco use and alcohol dependence. Past Medical History Past Medical History (Chronic Problems): Chronic Problems Insomnia (Chronic) Anxiety (Chronic) Hypertension (Chronic) Gout (Chronic) Depression (Chronic) Alcoholism /alcohol abuse (Chronic) Allergies prednisone Adverse Reaction (Verified 11/21/20 11:08) Other RAPID HR AND CANNOT SLEEP Home Medications: Ambulatory Orders Medication Instructions Recorded Lisinopril [Zestril] 20 mg PO DAILY 11/21/20 Metoprolol Tartrate [Lopressor] 100 mg PO DAILY 11/21/20 Multivitamin/Iron/Folic Acid 1 tab PO DAILY 11/21/20 [Centrum Adults Tablet] Paroxetine [Paxil] 10 mg PO DAILY 11/21/20 Surgical History: - - Heart cath-no intervention. [place] teeth extraction. Psychiatric History: Anxiety, Depression Lives: Spouse/ Significant Other Smoking Status: Never smoker Tobacco Use: Chew Alcohol: Heavy Drugs: None - *Family History Maternal History Items: - - Hyperlipidemia, related to breast cancer Paternal History Items: Heart Disease, Hypertension, - - Graves' disease Review of Systems Constitutional: Denies: Chills, Fever, Weight Change HEENT: Denies: Head Aches, Sinus Congestion, Sinus Drainage Cardiovascular: Denies: Chest Pain, Palpitations Respiratory: Denies: Cough, Shortness of breath at rest, Sputum production Gastrointestinal: Reports: Abdominal Pain. Denies: Constipation, Diarrhea, Nausea, Vomiting Genitourinary: Reports: - - Unable to urinate. Denies: Dysuria, Frequency, Hematuria Musculoskeletal: Denies: Joint Pain, Joint Tenderness Skin: Denies: Rash, Wounds Neurological: Denies: Numbness, Tingling, Focal weakness Psychiatric: Denies: Anxiety, Depression, Homicidal Ideations, Suicidal Ideations Hematologic/ Lymphatic: Denies: Easy Bruising, Easy Bleeding VTE Information - Inpt Only VTE Present on Admission: No VTE Mechan Device Prophylaxis: None VTE Pharm Prophylaxis ordered?: No Reason prophylaxis not ordered:: Treatment Not Indicated Patient Problems: Active and Suspected Problems Acute kidney injury (Acute) Acute pancreatitis (Acute) Lactic acidosis (Acute) Hypokalemia (Acute) - Physical Exam Vitals/I&O's: Vital Signs Temp Pulse Resp BP Pulse Ox 96.2 F L 82 16 107/46 L 96 11/21/20 11:17 11/21/20 11:17 11/21/20 11:17 11/21/20 11:17 11/21/20 11:17 Oxygen Delivery Method Room Air Weight: 285 lb Body Mass Index (BMI) 38.6 Finger Stick Blood Glucose 97 General: Alert, Oriented x3, Cooperative HEENT: Atraumatic, PERRLA, EOMI, Normocephalic Neck: Supple, No JVD, Negative Carotid Bruits Lungs: Clear to auscultation, Normal air movement Cardiovascular: Regular rate, No murmurs Abdomen: Bowel Sounds Present, Soft, Tender - Generalized, worse left upper quadrant Extremities: No clubbing, No cyanosis, No edema, Capillary Refill Less than 3 Seconds Skin: No rashes, No breakdown Musculoskeletal: No Tenderness to Palpation of Joints or Extremities Neurological: Cranial nerves II-XII grossly intact, Neuro grossly intact Psych/Mental Status: Normal Affect, Appropriate Laboratory Results 11/21/20 12:03: Triglycerides 452 H 11/21/20 12:03: Sodium 126 L, Potassium 3.2 L, Chloride 86 L, Carbon Dioxide 24.0, Anion Gap 16 H, BUN 53 H, Creatinine 8.79 H*, Estim Creat Clear Calc 11.53, Est GFR (MDRD) Af Amer 8 L, Est GFR (MDRD) Non-Af 7 L, BUN/Creatinine Ratio 6.0 L, Glucose 120 H, Calcium 9.2, Total Bilirubin 1.20 H, AST 37, ALT 39, Alkaline Phosphatase 115, Total Protein 8.0, Albumin 2.7 L, Globulin 5.3 H, Albumin/Globulin Ratio 0.5 L, Lipase 937 H Current Medications Sodium Bicarbonate 100 meq/ (Sodium Chloride) 1,100 mls @ 100 mls/hr IV .Q11H RONIT Assessment/Plan All Active Problems Acute kidney injury (Acute) Acute pancreatitis (Acute) Lactic acidosis (Acute) Hypokalemia (Acute) Abnormal LFTs (Resolved) 1. Acute pancreatitis, related to alcohol use-IV fluids, n.p.o. As needed pain regimen. 2. Acute renal failure, associated metabolic acidosis-unclear etiology. Nephrology consulted. Renal ultrasound normal. Placed on bicarb drip. Serial BMP. UA and urine studies ordered. Autoimmune labs ordered as well. BRANDON possibly due to pancreatitis? 3. Hyponatremia-fluids, trend BMP. 4. Alcohol dependence-encouraged cessation. Patient denies history of withdrawal. Monitor. 5. Hypertension-continue metoprolol. Hold lisinopril. 6. Chewing tobacco use-encouraged cessation. 7. Depression-on Paxil. 8. Obesity-encouraged diet and lifestyle applications. 9. Hypertriglyceridemia- chronic, previously on vascepa. DVT prophylaxis-not indicated, low risk This patient was seen by OLGA LIDIA Zarco under the supervision of Dr. Morton.
[2020-11-21] MEDS: Naloxone 0.4 MG/ML Syringe IV (15:33)
[2020-11-21] MEDS: 0.9% Normal Saline 1,000 ML 999 ML IV (15:33)
[2020-11-21 15:42] LABS: CPK Total, Creatine Kinase 63 U/L (39-308)
--- NOTE | 2020-11-21 17:08 | PCM.HOSP.N ---
Hospitalist Note I was contacted by the charge nurse on PCU today, patient's blood pressure has been in the 70s systolic, patient is asymptomatic with this and he is not tachycardic. I gave the patient a fluid bolus of 1000 cc of normal saline and gave him Narcan due to the fact he received narcotics in the emergency room. Patient's blood pressure is now in the 80s systolic, I feel that he needs to be moved into the ICU for further close monitoring and initiation of Levophed. I talked with nephrology about this by phone and I texted critical care to notify them of the consultation. Patient's was at his bedside on PCU and I discussed this with her also.
[2020-11-21 17:16] LABS: Lactic Acid 0.7 mmol/L (0.4-1.9)
[2020-11-21] MEDS: 0.9% Saline Lock 10 ML Syringe IV (18:05)
[2020-11-21] MEDS: fentaNYL 100 MCG/2 ML Ampul 25 MCG IV (21:19)
[2020-11-21 23:20] LABS: Albumin, Serum 2.2 g/dL (3.2-5.0); BUN 59 mg/dL (7-18); BUN/Creat Ratio 7.7 RATIO (10-20); Calcium,Total 8.3 mg/dL (8.5-10.1); Chloride 91 mmol/L (98-107); Creatinine, Serum 7.63 mg/dL (0.70-1.30); EST Glomerular Filtration Rate 8 mL/min (>60); Est Glom Filt Rate - Afr Amer 10 mL/min (>60); Estimated Creatinine Clearance 13.28 ml/min; Glucose 138 mg/dL (74-106); Potassium 3.1 mmol/L (3.5-5.1); Sodium Level 129 mmol/L (136-145)
[2020-11-21 23:33] LABS: Mucous, Urine 0 SEEN /hpf (<or=2+); Red Blood Cells-Urine 0 SEEN /hpf (0-5); Squamous Epithelial Cells - UA 0 SEEN /hpf (0-5)
[2020-11-21 23:36] LABS: Color, Urine Yellow (Yellow); Glucose, Dipstick Normal (Normal); Ketone-Dipstick Negative (Negative); Leukocyte Esterase-Dipstick 25 /ul (Negative); Nitrite-Dipstick Negative (Negative); Occult Blood-Urine 50 /ul (Negative); Protein-Dipstick 100 mg/dl (Negative); Specific Gravity, Urine 1.015 (1.002-1.030); Urine Bilirubin Dipstick Negative (Negative); Urine Clarity Sl. Cloudy (Clear); Urine Urobilinogen Normal (Normal)
[2020-11-21 23:43] LABS: White Blood Cells 5-10 SEEN /hpf (0-5)
[2020-11-21 23:44] LABS: Fine Granular Cast- Urine 0-5 SEEN /lpf (0-5)
[2020-11-21 23:49] LABS: Amorphous Sediment 2+; Urine Sodium 19 mmol/L (Not Establ.)
[2020-11-21 23:50] LABS: Bacteria 1+ /hpf (None Seen); Coarse Granular Cast 0-5 SEEN /lpf (0-5 /lpf)
[2020-11-22] VITALS (38 sets, daily range): BP systolic 85–118; BP diastolic 49–70; PULSE 71–95; RESP 14–23; TEMP 36.4–36.9; O2SAT 92–98
[2020-11-22 00:04] LABS: Osmolality, Urine 210 mOsm/KG
[2020-11-22] MEDS: fentaNYL 100 MCG/2 ML Ampul 25 MCG IV ×4 (00:28→10:16)
[2020-11-22] MEDS: TITRATION PARAMETER CHANGE 1 EACH IV (01:15)
[2020-11-22 05:02] LABS: Absolute Lymphocyte Count 0.97 X10^3/uL (0.83-4.51); Absolute Neutrophil Count 8.4 X10^3/uL (2.0-7.7); Basophil# 0.02 X10^3/uL; Basophil% 0.2 % (0-1); Eosinophil# 0.09 X10^3/uL; Eosinophils% 0.9 % (0-5); Hematocrit 35.8 % (40-54); Hemoglobin 11.9 g/dL (13.0-16.5); Lymphocyte # 0.97 X10^3/ul (4.0); Lymphocyte % 9.2 % (19-41); Mean Corp Hgb Conc 33.2 g/dL (32-36); Mean Corpuscular Hgb 31.3 pg (27.0-32.0); Mean Corpuscular Volume 94.2 fL (80-94); Mean Platelet Vol. 9.5 fl (6.2-12.0); Monocyte# 0.86 X10^3/uL; Monocyte% 8.2 % (0-10); NRBC Flagged by Analyzer 0 % (0-5); Neutrophil # 8.43 X10^3/uL (2.7-7.7); Neutrophil % 80.4 % (47-70); Platelet Count 105 K/mm3 (150-450); RBC Distribution Width CV 14.7 % (11.6-14.6); RBC Distribution Width SD 50.4 fl (35.1-43.9); White Blood Count 10.5 K/mm3 (4.4-11.0)
[2020-11-22 05:12] LABS: Anion Gap 13 (5-15); BUN 57 mg/dL (7-18); BUN/Creat Ratio 8.4 RATIO (10-20); Calcium,Total 8.4 mg/dL (8.5-10.1); Chloride 92 mmol/L (98-107); Creatinine, Serum 6.76 mg/dL (0.70-1.30); EST Glomerular Filtration Rate 9 mL/min (>60); Est Glom Filt Rate - Afr Amer 11 mL/min (>60); Estimated Creatinine Clearance 14.99 ml/min; Glucose 119 mg/dL (74-106); Potassium 3.1 mmol/L (3.5-5.1); Sodium Level 131 mmol/L (136-145)
--- NOTE | 2020-11-22 05:50 | PCM.CON.CC ---
Reason for Consult Date of Consultation: 11/22/20 Reason for Consultation: Hypovolemic shock History of Present Illness: The patient is a 45-year-old male, with a history as outlined below, who presented to the emergency department on November 21 with complaints of abdominal pain. The patient has a history of alcoholism, anxiety with panic attacks, depression and gout. The patient reported that he had drank 1/5 of liquor during the day Wednesday and into the afternoon on Wednesday. His abdominal pain began the day after his last drink. He denies any nausea, vomiting or diarrhea. On presentation to the emergency department, the patient was noted to be afebrile and hemodynamically stable. He was initially maintaining appropriate oxygen saturations on room air. Initial chemistry profile revealed a sodium of 126, potassium of 3.2, chloride of 86, anion gap of 16, BUN of 53 and creatinine of 8.79. Lactate was within normal limits. Total bili was increased to 1.20. Triglycerides were elevated to 452 with an elevated lipase of 937. Renal ultrasound was unremarkable. The patient initially received supplemental IV fluid hydration and was admitted to the progressive care unit for further management. During the patient stay in the PCU, he developed fluid refractory hypotension, which necessitated transfer to the medical intensive care unit, for the initiation of vasopressor support. Past Medical History Past Medical History (Chronic Problems): Chronic Problems Insomnia (Chronic) Anxiety (Chronic) Hypertension (Chronic) Gout (Chronic) Depression (Chronic) Alcoholism /alcohol abuse (Chronic) Allergies prednisone Adverse Reaction (Verified 11/21/20 11:08) Other RAPID HR AND CANNOT SLEEP Home Medications: Ambulatory Orders Medication Instructions Recorded Lisinopril [Zestril] 20 mg PO DAILY 11/21/20 Metoprolol Tartrate [Lopressor] 100 mg PO DAILY 11/21/20 Multivitamin/Iron/Folic Acid 1 tab PO DAILY 11/21/20 [Centrum Adults Tablet] Paroxetine [Paxil] 10 mg PO BID 11/21/20 Surgical History: - - Heart cath-no intervention. [place] teeth extraction. Psychiatric History: Anxiety, Depression Lives: Spouse/ Significant Other Smoking Status: Never smoker Tobacco Use: Chew Alcohol: Heavy Drugs: None - *Family History Maternal History Items: - - Hyperlipidemia, related to breast cancer Paternal History Items: Heart Disease, Hypertension, - - Graves' disease Review of Systems Constitutional: Denies: Chills, Fever Eyes: Denies: Blurred vision, Double vision HEENT: Denies: Head Aches, Sinus Congestion, Sinus Drainage Cardiovascular: Denies: Chest Pain, Palpitations Respiratory: Denies: Cough, Shortness of breath at rest, Sputum production Gastrointestinal: Reports: Abdominal Pain. Denies: Nausea, Vomiting Genitourinary: Denies: Dysuria Musculoskeletal: Denies: Joint Pain, Joint Tenderness Skin: Denies: Rash, Wounds Neurological: Denies: Numbness, Tingling, Focal weakness Psychiatric: Reports: Anxiety Hematologic/ Lymphatic: Denies: Easy Bruising, Easy Bleeding Patient Problems: Active and Suspected Problems Acute kidney injury (Acute) Acute pancreatitis (Acute) Lactic acidosis (Acute) Hypokalemia (Acute) Objective: The patient's most recent lab work, culture data and imaging studies have all been personally reviewed. Blood cultures are currently pending. - Physical Exam Vitals/I&O's: Vital Signs Temp Pulse Resp BP Pulse Ox 97.6 F L 76 15 96/53 L 94 11/22/20 04:00 11/22/20 05:00 11/22/20 05:00 11/22/20 05:00 11/22/20 05:00 Oxygen Delivery Method Room Air Weight: 265 lb 10.512 oz Body Mass Index (BMI) 35.3 Finger Stick Blood Glucose 97 Intake and Output for Last 24 Hours 11/20/20 11/21/20 11/22/20 23:59 23:59 23:59 Intake Total 2091.67 / 2221.07 1347.54 / 1347.54 Output Total 200 / 400 1075 / 1075 Balance 1891.67 / 1821.07 272.54 / 272.54 General: Alert, Cooperative, No apparent distress HEENT: Atraumatic, PERRLA, Normocephalic Oral: No Gingival or Mucosal Lesions/ Ulcerations Neck: Supple, No Nodes, Trachea Midline Lungs: No rhonchi, No wheeze, No rales, Diminished Cardiovascular: Regular rate, Regular Rhythm Abdomen: Bowel Sounds Present, Soft, Obese, Tender Extremities: No clubbing, No cyanosis, No edema Skin: No breakdown Musculoskeletal: No Tenderness to Palpation of Joints or Extremities Lymphatic: No Cervical, Supraclavicular, or Inguinal Adenopathy Neurological: Cranial nerves II-XII grossly intact, Neuro grossly intact Psych/Mental Status: Normal Affect, Appropriate Labs (Last 48 Hours) 11/21/20 11/21/20 11/21/20 12:03 12:03 12:03 WBC RBC Hgb Hct MCV MCH MCHC RDW Std Deviation RDW Coeff of Rickey Plt Count MPV Immature Gran % (Auto) Neut % (Auto) Lymph % (Auto) [place] % (Auto) Eos % (Auto) Baso % (Auto) Absolute Neuts (auto) Absolute Lymphs (auto) Nucleated RBC % Sodium 126 L Potassium 3.2 L Chloride 86 L Carbon Dioxide 24.0 Anion Gap 16 H BUN 53 H Creatinine 8.79 H* Estim Creat Clear Calc 11.53 Est GFR (MDRD) Af Amer 8 L Est GFR (MDRD) Non-Af 7 L BUN/Creatinine Ratio 6.0 L Glucose 120 H Lactic Acid Calcium 9.2 Phosphorus Total Bilirubin 1.20 H AST 37 ALT 39 Alkaline Phosphatase 115 Total Creatine Kinase 63 Total Protein 8.0 Total Protein (PEP) Albumin 2.7 L Albumin (PEP) Globulin 5.3 H Globulin (PEP) Albumin/Globulin Ratio 0.5 L Albumin/Globulin (PEP) Zwsmb-5-Fsutkyqdh Pzdlv-5-Vvhlinumh Beta Globulins Gamma Globulins M-Yunior Triglycerides 452 H Lipase 937 H Urine Color Urine Clarity Urine pH Ur Specific [place] Urine Protein Urine Glucose (UA) Urine Ketones Urine Occult Blood Urine Nitrite Urine Bilirubin Urine Urobilinogen Ur Leukocyte Esterase Urine RBC Urine WBC Ur Squamous Epith Cells Amorphous Sediment Urine Bacteria Fine Granular Casts Coarse Granular Casts Urine Mucus Urine Osmolality Ur Random Sodium Urine Creatinine Urine Total Protein Urine Albumin U Sceul-6-Bhcchqff U Zkcwy-6-Sntgxcgx U Beta Globulin U Gamma Globulin U PEP M-Yunior FREDIS Screen c-ANCA Antibody p-ANCA Antibody RUBENS-1 Antibody SS-A/Ro IgG Antibody SS-B/La IgG Antibody Sm ([place]) Antibody BELT AND LINK ASSEMBLY SUPERVISOR Antibody Scl-70 Scleroderma Ab Double Strand DNA Ab Centromere B Antibody Glomerular Base Memb Ab Complement C3 Complement C4 11/21/20 11/21/20 11/21/20 15:51 16:19 16:19 WBC RBC Hgb Hct MCV MCH MCHC RDW Std Deviation RDW Coeff of Rickey Plt Count MPV Immature Gran % (Auto) Neut % (Auto) Lymph % (Auto) [place] % (Auto) Eos % (Auto) Baso % (Auto) Absolute Neuts (auto) Absolute Lymphs (auto) Nucleated RBC % Sodium Potassium Chloride Carbon Dioxide Anion Gap BUN Creatinine Estim Creat Clear Calc Est GFR (MDRD) Af Amer Est GFR (MDRD) Non-Af BUN/Creatinine Ratio Glucose Lactic Acid 0.7 Calcium Phosphorus Total Bilirubin AST ALT Alkaline Phosphatase Total Creatine Kinase Total Protein Total Protein (PEP) Pending Albumin Albumin (PEP) Pending Globulin Globulin (PEP) Pending Albumin/Globulin Ratio Albumin/Globulin (PEP) Pending Tionx-7-Dskadmbsf Pending Joupy-6-Ympsspbqx Pending Beta Globulins Pending Gamma Globulins Pending M-Yunior Pending Triglycerides Lipase Urine Color Urine Clarity Urine pH Ur Specific [place] Urine Protein Urine Glucose (UA) Urine Ketones Urine Occult Blood Urine Nitrite Urine Bilirubin Urine Urobilinogen Ur Leukocyte Esterase Urine RBC Urine WBC Ur Squamous Epith Cells Amorphous Sediment Urine Bacteria Fine Granular Casts Coarse Granular Casts Urine Mucus Urine Osmolality Ur Random Sodium Urine Creatinine Urine Total Protein Pending Urine Albumin Pending U Areeu-4-Tsywngkl Pending U Xoxba-7-Peerjwnp Pending U Beta Globulin Pending U Gamma Globulin Pending U PEP M-Yunior Pending FREDIS Screen Pending c-ANCA Antibody Pending p-ANCA Antibody Pending RUBENS-1 Antibody Pending SS-A/Ro IgG Antibody Pending SS-B/La IgG Antibody Pending Sm ([place]) Antibody Pending [employer]SEMBL[employer] SUPERVISOR Antibody Pending Scl-70 Scleroderma Ab Pending Double Strand DNA Ab Pending Centromere B Antibody Pending Glomerular Base Memb Ab Pending Complement C3 Pending Complement C4 Pending 11/21/20 11/21/20 11/21/20 22:50 23:25 23:25 WBC RBC Hgb Hct MCV MCH MCHC RDW Std Deviation RDW Coeff of Rickey Plt Count MPV Immature Gran % (Auto) Neut % (Auto) Lymph % (Auto) [place] % (Auto) Eos % (Auto) Baso % (Auto) Absolute Neuts (auto) Absolute Lymphs (auto) Nucleated RBC % Sodium 129 L Potassium 3.1 L Chloride 91 L Carbon Dioxide 25.0 Anion Gap BUN 59 H Creatinine 7.63 H* Estim Creat Clear Calc 13.28 Est GFR (MDRD) Af Amer 10 L Est GFR (MDRD) Non-Af 8 L BUN/Creatinine Ratio 7.7 L Glucose 138 H Lactic Acid Calcium 8.3 L Phosphorus 5.0 H Total Bilirubin AST ALT Alkaline Phosphatase Total Creatine Kinase Total Protein Total Protein (PEP) Albumin 2.2 L Albumin (PEP) Globulin Globulin (PEP) Albumin/Globulin Ratio Albumin/Globulin (PEP) Mdyes-4-Auzwqkcxh Gyzgd-1-Aiqraaklm Beta Globulins Gamma Globulins M-Yunior Triglycerides Lipase Urine Color Yellow Urine Clarity Sl. Cloudy Urine pH 5.0 Ur Specific [place] 1.015 Urine Protein 100 H Urine Glucose (UA) Normal Urine Ketones Negative Urine Occult Blood 50 H Urine Nitrite Negative Urine Bilirubin Negative Urine Urobilinogen Normal Ur Leukocyte Esterase 25 H Urine RBC 0 SEEN Urine WBC 5-10 SEEN Ur Squamous Epith Cells 0 SEEN Amorphous Sediment 2+ Urine Bacteria 1+ Fine Granular Casts 0-5 SEEN Coarse Granular Casts 0-5 SEEN Urine Mucus 0 SEEN Urine Osmolality 210 Ur Random Sodium 19 Urine Creatinine 165.00 Urine Total Protein Urine Albumin U Zzskk-4-Myvbagpe U Bqsff-0-Deraqxuk U Beta Globulin U Gamma Globulin U PEP M-Yunior [place] Screen c-ANCA Antibody p-ANCA Antibody RUBENS-1 Antibody SS-A/Ro IgG Antibody SS-B/La IgG Antibody Sm ([place]) Antibody BEL[employer]BL[employer] SUPERVISOR Antibody Scl-70 Scleroderma Ab Double Strand DNA Ab Centromere B Antibody Glomerular Base Memb Ab Complement C3 Complement C4 11/22/20 11/22/20 04:55 04:55 WBC 10.5 RBC 3.80 L Hgb 11.9 L Hct 35.8 L MCV 94.2 H MCH 31.3 MCHC 33.2 RDW Std Deviation 50.4 H RDW Coeff of Rickey 14.7 H Plt Count 105 L MPV 9.5 Immature Gran % (Auto) 1.100 H Neut % (Auto) 80.4 H Lymph % (Auto) 9.2 L [place] % (Auto) 8.2 Eos % (Auto) 0.9 Baso % (Auto) 0.2 Absolute Neuts (auto) 8.4 H Absolute Lymphs (auto) 0.97 Nucleated RBC % 0 Sodium 131 L Potassium 3.1 L Chloride 92 L Carbon Dioxide 26.0 Anion Gap 13 BUN 57 H Creatinine 6.76 H Estim Creat Clear Calc 14.99 Est GFR (MDRD) Af Amer 11 L Est GFR (MDRD) Non-Af 9 L BUN/Creatinine Ratio 8.4 L Glucose 119 H Lactic Acid Calcium 8.4 L Phosphorus Total Bilirubin AST ALT Alkaline Phosphatase Total Creatine Kinase Total Protein Total Protein (PEP) Albumin Albumin (PEP) Globulin Globulin (PEP) Albumin/Globulin Ratio Albumin/Globulin (PEP) Ugjve-7-Cvhcyggfc Rjwyg-8-Dfmtstmdi Beta Globulins Gamma Globulins M-Yunior Triglycerides Lipase Urine Color Urine Clarity Urine pH Ur Specific [place] Urine Protein Urine Glucose (UA) Urine Ketones Urine Occult Blood Urine Nitrite Urine Bilirubin Urine Urobilinogen Ur Leukocyte Esterase Urine RBC Urine WBC Ur Squamous Epith Cells Amorphous Sediment Urine Bacteria Fine Granular Casts Coarse Granular Casts Urine Mucus Urine Osmolality Ur Random Sodium Urine Creatinine Urine Total Protein Urine Albumin U Wndnx-9-Uizbaiwr U Ahaps-3-Whftjwby U Beta Globulin U Gamma Globulin U PEP M-Yunior [place] Screen c-ANCA Antibody p-ANCA Antibody RUBENS-1 Antibody SS-A/Ro IgG Antibody SS-B/La IgG Antibody Sm ([place]) Antibody BELT [employer] L[employer] ASSEMBLY SUPERVISOR Antibody Scl-70 Scleroderma Ab Double Strand DNA Ab Centromere B Antibody Glomerular Base Memb Ab Complement C3 Complement C4 Clinical Impression(s) from Imaging Studies Renal Ultrasound 11/21/20 12:22 IMPRESSION: Normal ultrasound of the kidneys. Electronically Signed: Francis Goodwin MD at 13:43 EST , Service support , Current Medications Fentanyl Citrate (Fentanyl 100 Mcg/2 Ml Ampul) 25 mcg IV Q3H PRN PRN PRN Reason: Pain Score 4-10 Last Admin: 11/22/20 03:45 Dose: 25 mcg Documented by: Sodium Bicarbonate 100 meq/ (Sodium Chloride) 1,100 mls @ 100 mls/hr IV .Q11H [facility] Last Admin: 11/22/20 04:51 Dose: 100 mls/hr Documented by: Piperacillin Sod/Tazobactam (Sod 3.375 gm/ Sodium Chloride) 50 mls @ 12.5 mls/hr IV Q12 [facility] Last Infusion: 11/21/20 22:03 Dose: Infused Documented by: Norepinephrine Bitartrate 8 mg (/ Sodium Chloride) 250 mls @ 9.375 mls/hr CONT INF .[id number] [facility]; Protocol Last Titration: 11/22/20 05:00 Dose: 2 mcg/min, 3.8 mls/hr Documented by: Ondansetron HCl (Ondansetron 4 Mg/2 Ml Vial) 4 mg IV Q8H PRN PRN PRN Reason: NAUSEA/VOMITING Paroxetine HCl (Paroxetine 10 Mg Tablet) 10 mg PO DAILY RONIT Sodium Chloride (0.9% Saline Lock 10 Ml Syringe) 10 - 40 ml IV UD PRN PRN Reason: SALINE FLUSH Last Admin: 11/21/20 18:05 Dose: 10 ml Documented by: Assessment/Plan Active and Suspected Problems Acute kidney injury (Acute) Acute pancreatitis (Acute) Lactic acidosis (Acute) Hypokalemia (Acute) RECOMMENDATIONS: 1. Continue Levophed to maintain a mean arterial pressure at or above 65 mmHg. 2. Continue antiemetics and pain control regimen. 3. Continue sodium bicarbonate infusion per nephrology recommendations. 4. Give additional fluid bolus this morning. 5. Electrolyte repletion as ordered. 6. Encourage incentive spirometer use while in bed. IMPRESSIONS: 1. Nonhemorrhagic hypovolemic shock likely secondary to acute pancreatitis The patient's acute pancreatitis was likely precipitated by his recent alcohol binge. He appears to be clinically stable at this time. Plan to continue current supportive measures including additional supplemental IV fluids and vasopressor support to maintain a mean arterial pressure at or above 65 mmHg. Future alcohol cessation is strongly recommended. 2. Acute kidney injury Potentially related to ATN in the setting of #1. Nephrology is currently following with autoimmune/vasculitis work-up pending. Continue to monitor urine output. No current indication for renal replacement therapy. 3. Hypokalemia/hyponatremia/hypochloremia Electrolyte repletion as ordered. Recheck levels in the morning. 4. Obesity/hypertension/depression/anxiety Complicates care, management, recovery and prognosis. Continue to hold home antihypertensives. TIME: 38 minutes of critical care time, independent of procedures, was spent addressing the patient's nonhemorrhagic hypovolemic shock likely secondary to acute pancreatitis, acute kidney injury, hypokalemia, review of all data and collaboration with the care team. ([id number]) [id number] Critical care first hour
[2020-11-22] MEDS: Potassium Chloride 10mEq/100mL 10 MEQ/100 ML IV.SOLN. 100 MEQ IV BOLUS ×4 (07:04→14:27)
[2020-11-22 07:07] LABS: Magnesium 2.1 mg/dL (1.6-2.6); Phosphorus 4.5 mg/dL (2.5-4.9)
[2020-11-22] MEDS: Lactated Ringers 1,000 ML 999 ML IV (08:26)
[2020-11-22] MEDS: PARoxetine 10 MG Tablet PO (10:45)
--- NOTE | 2020-11-22 10:55 | CASEMGMT ---
Social Work Referral Date: 11/22/20 Date of Assessment: 11/22/20 Reason for Consult: alcoholism Informant: Self Referral Personal Status Mentation: A&Ox3 Presentation during assessment: Pt in bed, lights off. 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 Pt uncertain what trigger is that causes binge. Pt states he no longer goes into withdrawal when he abstains for a few weeks, although this use to be a problem. Prior Treatment: Pt has been to [facility] a few years ago and has utilized [facility] services in the past as well as AA and [facility]. Since the Pandemic has happened AA meetings and CR meetings have been shut down and pt has not been able to participate. Mental Health Diagnoses: Depression and Anxiety Medications: Paxil 10 mg. Pt states he has been trying to wean off of Paxil for a few years due to the side affects and has been working with his PCP to accomplish this. Stressors: Pt unable to identify triggers to anxiety and alcohol use. Pt does state that current cultural climate with pandemic and divisiveness among people has added to his stress and anxiety and difficulty with coping Suicide: Pt denies any feeling or thoughts of suicidal ideation Intervention SW spent time with pt talking about mental health concerns as well as alcohol use. SW encouraged expression of feelings and discussed recovery options. Pt is open to receiving information regarding alcohol programs near his home. SW provided written list of Alcohol programs and counselors. SW spoke with pt about the importance of treating both mental health issues and alcohol use disorder. Pt is open to referral being made at [facility] which does have a dual diagnosis program. SW made referral to [facility] and appointment set for November 28 at 3pm. Pt notified of appointment time and agreeable. Written appointment card given to patient. No further needs expressed at this time, pt aware SW will remain available should needs arise. Plan [facility] Appointment November 28 3pm SAM [place]
--- NOTE | 2020-11-22 11:42 | CASEMGMT ---
RN CM PLAN REP CM to room to meet with patient for initial transition planning/care coordination assessment. RN WILLAM introduced self and role at [facility]. Pt voices understanding and consents to assessment at this time. Pt resting in bed in no distress at this time. Pt is A/O at this time and answers all questions appropriately. Care providers, pharmacy, and demographics verified/updated at this time. PCP:Dr Ken Barrera Specialists: None Preferred Pharmacy: [facility] Retail Insurance: [facility] Prescription Benefit: Yes Living Will/HPOA: States does not have LW or HCPOA . Interested in more information but states does not want to talk with SW at this time to complete paperwork. Provided information on advanced directives and given Social Service rac card with number to call if chooses in the future to utilize [facility] social work for advanced directive completion. Educated patient that, if patient so chooses, can come back to [facility] and meet with a SW as an outpatient to complete health care advanced directives. Patient expresses understanding. LNOK: , Rajeev Living Arrangements: Lives w/his in 2-story home w/8 steps to enter. Independent. Works part-time Transportation: Pt states drives self and states no transportation concerns at this time. will pick him up at discharge DME: Denies using any DME and denies needs. HHC/SNF: No history of either. Denies needs for HHC or OP therapy. No needs identified. Pt wishes to return home and states has no concerns with going home at time of discharge. CM to follow for any discharge planning/needs. Pt voices no concerns/needs at this time. Advised pt to ask for CM if any questions/concerns/needs arise. Voices understanding. PLAN: Home w/spousal support and discharge plans in place. SW saw for ETOH use. See SW note. Regi LUDWIG RN CM
--- NOTE | 2020-11-22 14:22 | PN.RENAL_ITS ---
Patient Problems: Active and Suspected Problems Acute kidney injury (Acute) Acute pancreatitis (Acute) Lactic acidosis (Acute) Hypokalemia (Acute) Subjective: Doing Ok. eating off pressors Abdominal pain is better No diarrhea No V/N - Physical Exam Vitals/I&O's: Vital Signs Temp Pulse Resp BP Pulse Ox 98.1 F 76 15 111/52 L 97 11/22/20 12:00 11/22/20 12:00 11/22/20 12:00 11/22/20 12:00 11/22/20 12:00 Oxygen Delivery Method Room Air Weight: 120.5 kg Body Mass Index (BMI) 35.3 Finger Stick Blood Glucose 97 Intake and Output for Last 24 Hours 11/20/20 11/21/20 11/22/20 23:59 23:59 23:59 Intake Total 2091.67 / 2221.07 2952.31 / 2952.31 Output Total 200 / 400 2450 / 2450 Balance 1891.67 / 1821.07 502.31 / 502.31 General: Alert, Oriented x3 HEENT: Atraumatic Oral: Moist Mucosa Neck: Supple, No JVD Lungs: Clear to auscultation, Normal air movement, No rhonchi, No wheeze Cardiovascular: Regular rate, Regular Rhythm, Normal S1, Normal S2 Abdomen: Bowel Sounds Present, Soft, Non Tender, Non-Distended Extremities: No clubbing, No cyanosis, No edema Skin: No rashes Musculoskeletal: No Tenderness to Palpation of Joints or Extremities Lymphatic: No Cervical, Supraclavicular, or Inguinal Adenopathy Neurological: Cranial nerves II-XII grossly intact, Neuro grossly intact Psych/Mental Status: Appropriate Laboratory Results 11/21/20 12:03: Total Creatine Kinase 63 11/21/20 15:51: Total Protein (PEP) Pending, Albumin (PEP) Pending, Globulin (PEP) Pending, Albumin/Globulin (PEP) Pending, Werru-9-Wzqrlpyoz Pending, Jvxos-4-Ojofdvaok Pending, Beta Globulins Pending, Gamma Globulins Pending, M- Yunior Pending, Urine Total Protein Pending, Urine Albumin Pending, U Ijlgx-3-Tktkdeti Pending, U Bfkbx-8-Wstwieqq Pending, U Beta Globulin Pending, U Gamma Globulin Pending, U PEP M-Yunior Pending, c-ANCA Antibody Pending, p-ANCA Antibody Pending, Glomerular Base Memb Ab Pending, Complement C3 Pending, Complement C4 Pending 11/21/20 16:19: FREDIS Screen Pending, RUBENS-1 Antibody Pending, SS-A/Ro IgG Antibody Pending, SS-B/La IgG Antibody Pending, Sm ([place]) Antibody Pending, CUPOLA PATCHER Antibody Pending, Scl-70 Scleroderma Ab Pending, Double Strand DNA Ab Pending, Centromere B Antibody Pending 11/21/20 16:19: Lactic Acid 0.7 11/21/20 22:50: Sodium 129 L, Potassium 3.1 L, Chloride 91 L, Carbon Dioxide 25.0, BUN 59 H, Creatinine 7.63 H*, Estim Creat Clear Calc 13.28, Est GFR (MDRD) Af Amer 10 L, Est GFR (MDRD) Non-Af 8 L, BUN/Creatinine Ratio 7.7 L, Glucose 138 H, Calcium 8.3 L, Phosphorus 5.0 H, Albumin 2.2 L 11/21/20 23:25: Urine Color Yellow, Urine Clarity Sl. Cloudy, Urine pH 5.0, Ur Specific [place] 1.015, Urine Protein 100 H, Urine Glucose (UA) Normal, Urine Ketones Negative, Urine Occult Blood 50 H, Urine Nitrite Negative, Urine Bilirubin Negative, Urine Urobilinogen Normal, Ur Leukocyte Esterase 25 H, Urine RBC 0 SEEN, Urine WBC 5-10 SEEN, Ur Squamous Epith Cells 0 SEEN, Amorphous Sediment 2+, Urine Bacteria 1+, Fine Granular Casts 0-5 SEEN, Coarse Granular Casts 0-5 SEEN, Urine Mucus 0 SEEN 11/21/20 23:25: Urine Osmolality 210, Ur Random Sodium 19, Urine Creatinine 165.00 11/22/20 04:55: Sodium 131 L, Potassium 3.1 L, Chloride 92 L, Carbon Dioxide 26.0, Anion Gap 13, BUN 57 H, Creatinine 6.76 H, Estim Creat Clear Calc 14.99, Est GFR (MDRD) Af Amer 11 L, Est GFR (MDRD) Non-Af 9 L, BUN/Creatinine Ratio 8.4 L, Glucose 119 H, Calcium 8.4 L 11/22/20 04:55: WBC 10.5, RBC 3.80 L, Hgb 11.9 L, Hct 35.8 L, MCV 94.2 H, MCH 31.3, MCHC 33.2, RDW Std Deviation 50.4 H, RDW Coeff of Rickey 14.7 H, Plt Count 105 L, MPV 9.5, Immature Gran % (Auto) 1.100 H, Neut % (Auto) 80.4 H, Lymph % (Auto) 9.2 L, Guthrie % (Auto) 8.2, Eos % (Auto) 0.9, Baso % (Auto) 0.2, Absolute Neuts (auto) 8.4 H, Absolute Lymphs (auto) 0.97, Nucleated RBC % 0 11/22/20 04:55: Phosphorus 4.5, Magnesium 2.1 Current Medications Sodium Bicarbonate 100 meq/ (Sodium Chloride) 1,100 mls @ 100 mls/hr IV .Q11H [facility] Last Admin: 11/22/20 04:51 Dose: 100 mls/hr Documented by: Ondansetron HCl (Ondansetron 4 Mg/2 Ml Vial) 4 mg IV Q8H PRN PRN PRN Reason: NAUSEA/VOMITING Paroxetine HCl (Paroxetine 10 Mg Tablet) 10 mg PO DAILY [facility] Last Admin: 11/22/20 10:45 Dose: 10 mg Documented by: Sodium Chloride (0.9% Saline Lock 10 Ml Syringe) 10 - 40 ml IV UD PRN PRN Reason: SALINE FLUSH Last Admin: 11/21/20 18:05 Dose: 10 ml Documented by: Medical Necessity - Tobacco Use Smoking Status: Never smoker Tobacco Use: Chew Assessment/Plan All Active Problems Acute kidney injury (Acute) Acute pancreatitis (Acute) Lactic acidosis (Acute) Hypokalemia (Acute) Abnormal LFTs (Resolved) 1- Acute kidney injury . Cr was 1.0 mg/dl in April 2019 BRANDON is prerenal azotemia which could have progressed ATN FeNa < 1%. UA showed 100 protein. No RBC kidney function is improving with IVF. Will continue same rate No need for [employer] Hold home ACEI Check RFP in am 2- Hyponatremia : likely from poor solute intake and beer potomania. BRANDON is also contributing improved with IVF Continue to monitor Na level 3- Metabolic acidosis: from BRANDON resolved with HC03 drip Will switch IVF to RL 4- Pancreatitis. likely from alcoholism Improved. eating Renal team will continue to follow. please call if any question at [phone] d/w Dr. Angela Nelson MD
[2020-11-22] MEDS: Lactated Ringers 1,000 ML 100 ML IV (14:38)
--- NOTE | 2020-11-22 15:04 | NURSING ---
report called to [facility] for transfer to room 119, transferred per wheelchair with belongings
[2020-11-22] MEDS: oxyCODONE 5 MG Tablet 10 MG PO (16:51)
--- NOTE | 2020-11-22 17:10 | PN_ITS ---
Patient Problems: Active and Suspected Problems Acute kidney injury (Acute) Acute pancreatitis (Acute) Lactic acidosis (Acute) Hypokalemia (Acute) Subjective: Patient was seen and examined this morning in ICU, he was taken off pressor agents, his blood pressure is still low at times but overall it is improved. Patient's renal functions have improved I talked briefly with nephrology who did not feel there was a need to dialyze the patient and recommended continuing fluid administration. Patient still having some left-sided abdominal pain around the side where his left flank area is. - Physical Exam Vitals/I&O's: Vital Signs Temp Pulse Resp BP Pulse Ox 98.5 F 81 18 92/49 L 94 11/22/20 15:26 11/22/20 15:32 11/22/20 15:26 11/22/20 15:11/22/20 15:26 Oxygen Delivery Method Room Air Weight: 120.5 kg Body Mass Index (BMI) 35.3 Finger Stick Blood Glucose 97 Intake and Output for Last 24 Hours 11/20/20 11/21/20 11/22/20 23:59 23:59 23:59 Intake Total 2091.67 / 2221.07 4552.31 / 4552.31 Output Total 200 / 400 2750 / 2750 Balance 1891.67 / 1821.07 1802.31 / 1802.31 General: Alert, Oriented x3, Cooperative, No apparent distress, Well developed, Well nourished HEENT: Atraumatic, PERRLA, EOMI, Normocephalic Oral: Moist Mucosa Neck: Supple, No JVD, Trachea Midline, Thyroid Normal Size and Texture Lungs: Clear to auscultation, Normal air movement, No rhonchi, No wheeze, No rales Cardiovascular: Regular rate, Regular Rhythm, Normal S1, Normal S2, No murmurs, PMI Normal, No rub noted, No Gallop Abdomen: Bowel Sounds Present, Soft, Tender - Mild abdominal tenderness is noted over the mid abdominal area and the left lateral abdominal area to palpation Extremities: No clubbing, No cyanosis, No edema, Capillary Refill Less than 3 Seconds Skin: No rashes, No breakdown Musculoskeletal: No Tenderness to Palpation of Joints or Extremities Neurological: Cranial nerves II-XII grossly intact, Neuro grossly intact, Sensory exam intact to light touch and pain, Coordination normal Psych/Mental Status: Normal Affect, Appropriate, Alert and oriented to time, place, person, mood and affect Laboratory Results 11/21/20 16:19: Lactic Acid 0.7 11/21/20 22:50: Sodium 129 L, Potassium 3.1 L, Chloride 91 L, Carbon Dioxide 25.0, BUN 59 H, Creatinine 7.63 H*, Estim Creat Clear Calc 13.28, Est GFR (MDRD) Af Amer 10 L, Est GFR (MDRD) Non-Af 8 L, BUN/Creatinine Ratio 7.7 L, Glucose 138 H, Calcium 8.3 L, Phosphorus 5.0 H, Albumin 2.2 L 11/21/20 23:25: Urine Color Yellow, Urine Clarity Sl. Cloudy, Urine pH 5.0, Ur Specific [place] 1.015, Urine Protein 100 H, Urine Glucose (UA) Normal, Urine Ketones Negative, Urine Occult Blood 50 H, Urine Nitrite Negative, Urine Bilirubin Negative, Urine Urobilinogen Normal, Ur Leukocyte Esterase 25 H, Urine RBC 0 SEEN, Urine WBC 5-10 SEEN, Ur Squamous Epith Cells 0 SEEN, Amorphous Sediment 2+, Urine Bacteria 1+, Fine Granular Casts 0-5 SEEN, Coarse Granular Casts 0-5 SEEN, Urine Mucus 0 SEEN 11/21/20 23:25: Urine Osmolality 210, Ur Random Sodium 19, Urine Creatinine 165.00 11/22/20 04:55: Sodium 131 L, Potassium 3.1 L, Chloride 92 L, Carbon Dioxide 26.0, Anion Gap 13, BUN 57 H, Creatinine 6.76 H, Estim Creat Clear Calc 14.99, Est GFR (MDRD) Af Amer 11 L, Est GFR (MDRD) Non-Af 9 L, BUN/Creatinine Ratio 8.4 L, Glucose 119 H, Calcium 8.4 L 11/22/20 04:55: WBC 10.5, RBC 3.80 L, Hgb 11.9 L, Hct 35.8 L, MCV 94.2 H, MCH 31.3, MCHC 33.2, RDW Std Deviation 50.4 H, RDW Coeff of Rickey 14.7 H, Plt Count 105 L, MPV 9.5, Immature Gran % (Auto) 1.100 H, Neut % (Auto) 80.4 H, Lymph % (Auto) 9.2 L, [place] % (Auto) 8.2, Eos % (Auto) 0.9, Baso % (Auto) 0.2, Absolute Neuts (auto) 8.4 H, Absolute Lymphs (auto) 0.97, Nucleated RBC % 0 11/22/20 04:55: Phosphorus 4.5, Magnesium 2.1 Current Medications Lactated Ringer's () 1,000 mls @ 100 mls/hr IV .Q10H [facility] Last Admin: 11/22/20 14:38 Dose: 100 mls/hr Documented by: Ondansetron HCl (Ondansetron 4 Mg/2 Ml Vial) 4 mg IV Q8H PRN PRN PRN Reason: NAUSEA/VOMITING Oxycodone HCl (Oxycodone 5 Mg Tablet) 10 mg PO Q6H PRN PRN PRN Reason: Pain Score 6-10 Last Admin: 11/22/20 16:51 Dose: 10 mg Documented by: Paroxetine HCl (Paroxetine 10 Mg Tablet) 10 mg PO DAILY [facility] Last Admin: 11/22/20 10:45 Dose: 10 mg Documented by: Sodium Chloride (0.9% Saline Lock 10 Ml Syringe) 10 - 40 ml IV UD PRN PRN Reason: SALINE FLUSH Last Admin: 11/21/20 18:05 Dose: 10 ml Documented by: Medical Necessity - Tobacco Use Smoking Status: Never smoker Tobacco Use: Chew Assessment/Plan All Active Problems Acute kidney injury (Acute) Acute pancreatitis (Acute) Lactic acidosis (Acute) Hypokalemia (Acute) Abnormal LFTs (Resolved) #1 acute pancreatitis-continue fluid administration at this time, patient may have oral intake #2 acute kidney injury-secondary to acute pancreatitis, continue fluid administration, nephrology is seeing the patient #3 hypotension-probably secondary to acute kidney injury, blood pressures are improving, patient is off his blood pressure pills right now, I have made the decision to stop the patient's IV antibiotics, he is not running a temperature. His white blood cell count is normal #4 chronic alcoholism-nursing home social worker talk to patient about follow-up after his hospitalization with alcohol detox services and was given information. #5 essential hypertension by history #6 chronic depression/anxiety-patient remains on Paxil #7 hypokalemia-patient was given IV potassium today Inpatient E&M: [id number] [facility] Hosp L2
[2020-11-23] VITALS (14 sets, daily range): BP systolic 90–133; BP diastolic 55–79; PULSE 59–94; RESP 16–18; TEMP 36.4–37.3; O2SAT 94–96
[2020-11-23] MEDS: Lactated Ringers 1,000 ML 100 ML IV ×3 (00:55→20:46)
[2020-11-23] MEDS: oxyCODONE 5 MG Tablet 10 MG PO ×4 (01:04→20:46)
[2020-11-23 07:55] LABS: Anion Gap 8 (5-15); BUN 48 mg/dL (7-18); Calcium,Total 8.9 mg/dL (8.5-10.1); Chloride 98 mmol/L (98-107); EST Glomerular Filtration Rate 24 mL/min (>60); Est Glom Filt Rate - Afr Amer 29 mL/min (>60); Estimated Creatinine Clearance 33.77 ml/min; Glucose 117 mg/dL (74-106); Potassium 3.3 mmol/L (3.5-5.1); Sodium Level 136 mmol/L (136-145)
--- NOTE | 2020-11-23 11:32 | PCM.PROGNOTE ---
Patient Problems: Active and Suspected Problems Acute kidney injury (Acute) Acute pancreatitis (Acute) Lactic acidosis (Acute) Hypokalemia (Acute) Subjective: Patient seen and examined. States he feels better than he has in a long time. Reports abdominal pain is significantly improved. Tolerating diet. Denies nausea, vomiting. Having significant urine output. - Physical Exam Vitals/I&O's: Vital Signs Temp Pulse Resp BP Pulse Ox 97.6 F L 59 L 18 133/79 H 95 11/23/20 10:10 11/23/20 10:10 11/23/20 10:10 11/23/20 10:10 11/23/20 10:10 Oxygen Delivery Method Room Air Weight: 269 lb 6.478 oz Body Mass Index (BMI) 35.3 Finger Stick Blood Glucose 97 Intake and Output for Last 24 Hours 11/21/20 11/22/20 11/23/20 23:59 23:59 23:59 Intake Total 2091.67 / 2221.07 6247.31 / 6247.31 365 / 365 Output Total 200 / 400 4325 / 4325 1650 / 1650 Balance 1891.67 / 1821.07 1922.31 / 1922.31 -1285 / -1285 General: Alert, Oriented x3, Cooperative HEENT: Atraumatic, PERRLA, EOMI, Normocephalic Neck: Supple, No JVD, Negative Carotid Bruits Lungs: Clear to auscultation, Normal air movement Cardiovascular: Regular rate, No murmurs Abdomen: Bowel Sounds Present, Soft, Non-Distended, Tender - Improved Extremities: No clubbing, No cyanosis, No edema, Capillary Refill Less than 3 Seconds Skin: No rashes, No breakdown Musculoskeletal: No Tenderness to Palpation of Joints or Extremities Neurological: Cranial nerves II-XII grossly intact, Neuro grossly intact Psych/Mental Status: Normal Affect, Appropriate Laboratory Results 11/23/20 06:16: Sodium 136, Potassium 3.3 L, Chloride 98, Carbon Dioxide 30.0, Anion Gap 8, BUN 48 H, Creatinine 3.00 H, Estim Creat Clear Calc 33.77, Est GFR (MDRD) Af Amer 29 L, Est GFR (MDRD) Non-Af 24 L, BUN/Creatinine Ratio 16.0, Glucose 117 H, Calcium 8.9 Current Medications Lactated Ringer's () 1,000 mls @ 100 mls/hr IV .Q10H [facility] Last Admin: 11/23/20 00:55 Dose: 100 mls/hr Documented by: Ondansetron HCl (Ondansetron 4 Mg/2 Ml Vial) 4 mg IV Q8H PRN PRN PRN Reason: NAUSEA/VOMITING Oxycodone HCl (Oxycodone 5 Mg Tablet) 10 mg PO Q6H PRN PRN PRN Reason: Pain Score 6-10 Last Admin: 11/23/20 07:56 Dose: 10 mg Documented by: Paroxetine HCl (Paroxetine 10 Mg Tablet) 10 mg PO DAILY [facility] Last Admin: 11/22/20 10:45 Dose: 10 mg Documented by: Sodium Chloride (0.9% Saline Lock 10 Ml Syringe) 10 - 40 ml IV UD PRN PRN Reason: SALINE FLUSH Last Admin: 11/21/20 18:05 Dose: 10 ml Documented by: Medical Necessity - Tobacco Use Smoking Status: Never smoker Tobacco Use: Chew Assessment/Plan All Active Problems Acute kidney injury (Acute) Acute pancreatitis (Acute) Lactic acidosis (Acute) Hypokalemia (Acute) Abnormal LFTs (Resolved) 1. Acute pancreatitis, related to alcohol use-improved. Tolerating diet. 2. Acute kidney injury-Nephrology consulted. Renal ultrasound normal. Secondary to acute pancreatitis/prerenal azotemia. Significantly improved. Continue IV fluids, trend BMP. 3. Hyponatremia-resolved with IV fluids. 4. Alcohol dependence-encouraged cessation. Patient denies history of withdrawal. Social work following, given list of alcohol treatment programs and counselors. He has an outpatient appointment on November 28 at [facility]. 5. Hypertension-metoprolol and lisinopril on hold due to hypotension and acute kidney injury. 6. Chewing tobacco use-encouraged cessation. 7. Depression-on Paxil. 8. Obesity-encouraged diet and lifestyle applications. 9. Hypertriglyceridemia- chronic, previously on vascepa. Recommend resuming Vascepa, patient will discuss with PCP. DVT prophylaxis-not indicated, low risk This patient was seen by OLGA LIDIA Zarco under the supervision of Dr. Morton.
[2020-11-23] MEDS: Potassium Chloride Oral Tablet 20 MEQ 40 MEQ PO (12:18)
[2020-11-23] MEDS: PARoxetine 10 MG Tablet PO (12:18)
--- NOTE | 2020-11-23 17:18 | PCM.PN.REN ---
Patient Problems: Active and Suspected Problems Acute kidney injury (Acute) Acute pancreatitis (Acute) Lactic acidosis (Acute) Hypokalemia (Acute) Subjective: no new complaints - Physical Exam Vitals/I&O's: Vital Signs Temp Pulse Resp BP Pulse Ox 97.6 F L 82 18 133/79 H 95 11/23/20 10:10 11/23/20 15:06 11/23/20 14:00 11/23/20 10:10 11/23/20 14:00 Oxygen Delivery Method Room Air Weight: 122.2 kg Body Mass Index (BMI) 35.3 Finger Stick Blood Glucose 97 Intake and Output for Last 24 Hours 11/21/20 11/22/20 11/23/20 23:59 23:59 23:59 Intake Total 2091.67 / 2221.07 6247.31 / 6247.31 1665 / 1665 Output Total 200 / 400 4325 / 4325 2350 / 2350 Balance 1891.67 / 1821.07 1922.31 / 1922.31 -685 / -685 General: Alert, Oriented x3, Cooperative HEENT: Atraumatic, PERRLA, EOMI, Normocephalic Neck: Supple, No JVD, Negative Carotid Bruits Lungs: Clear to auscultation, Normal air movement Cardiovascular: Regular rate, No murmurs Abdomen: Bowel Sounds Present, Soft, Non Tender Extremities: No edema, Capillary Refill Less than 3 Seconds Skin: No rashes, No breakdown Musculoskeletal: No Tenderness to Palpation of Joints or Extremities Neurological: Cranial nerves II-XII grossly intact Psych/Mental Status: Normal Affect, Appropriate Laboratory Results 11/23/20 06:16: Sodium 136, Potassium 3.3 L, Chloride 98, Carbon Dioxide 30.0, Anion Gap 8, BUN 48 H, Creatinine 3.00 H, Estim Creat Clear Calc 33.77, Est GFR (MDRD) Af Amer 29 L, Est GFR (MDRD) Non-Af 24 L, BUN/Creatinine Ratio 16.0, Glucose 117 H, Calcium 8.9 Current Medications Lactated Ringer's () 1,000 mls @ 100 mls/hr IV .Q10H [facility] Last Admin: 11/23/20 12:18 Dose: 100 mls/hr Documented by: Ondansetron HCl (Ondansetron 4 Mg/2 Ml Vial) 4 mg IV Q8H PRN PRN PRN Reason: NAUSEA/VOMITING Oxycodone HCl (Oxycodone 5 Mg Tablet) 10 mg PO Q6H PRN PRN PRN Reason: Pain Score 6-10 Last Admin: 11/23/20 14:46 Dose: 10 mg Documented by: Paroxetine HCl (Paroxetine 10 Mg Tablet) 10 mg PO DAILY [facility] Last Admin: 11/23/20 12:18 Dose: 10 mg Documented by: Potassium Chloride (Potassium Chloride Oral Tablet 20 Meq) 40 meq PO DAILYCM [facility] Last Admin: 11/23/20 12:18 Dose: 40 meq Documented by: Sodium Chloride (0.9% Saline Lock 10 Ml Syringe) 10 - 40 ml IV UD PRN PRN Reason: SALINE FLUSH Last Admin: 11/21/20 18:05 Dose: 10 ml Documented by: Medical Necessity - Tobacco Use Smoking Status: Never smoker Tobacco Use: Chew Assessment/Plan All Active Problems Acute kidney injury (Acute) Acute pancreatitis (Acute) Lactic acidosis (Acute) Hypokalemia (Acute) Abnormal LFTs (Resolved) 1- Acute kidney injury . Cr was 1.0 mg/dl in April 2019 BRANDON is prerenal azotemia which could have progressed ATN FeNa < 1%. UA showed 100 protein. No RBC kidney function is improving with IVF 2- Hyponatremia : likely from poor solute intake and beer potomania. BRANDON is also contributing improved with IVF 3- Metabolic acidosis: from BRANDON resolved with HC03 drip
--- NOTE | 2020-11-23 19:25 | NURSING ---
Bedside reported given to nightshift RN. Questions answered. Patient resting in bed watching TV. Denies needs at this time. IV fluid and site assessed.
[2020-11-24 03:00] VITALS: PULSE 95
[2020-11-24 03:07] VITALS: BP 112/66; PULSE 90; RESP 16; TEMP 36.6; O2SAT 92
[2020-11-24] MEDS: Lactated Ringers 1,000 ML 100 ML IV (05:52)
[2020-11-24] MEDS: oxyCODONE 5 MG Tablet 10 MG PO (05:54)
[2020-11-24 07:00] VITALS: PULSE 91
[2020-11-24 07:28] LABS: Anion Gap 8 (5-15); BUN 26 mg/dL (7-18); BUN/Creat Ratio 19.3 RATIO (10-20); Calcium,Total 8.7 mg/dL (8.5-10.1); Chloride 98 mmol/L (98-107); Creatinine, Serum 1.35 mg/dL (0.70-1.30); EST Glomerular Filtration Rate 60 mL/min (>60); Est Glom Filt Rate - Afr Amer 73 mL/min (>60); Estimated Creatinine Clearance 75.05 ml/min; Glucose 119 mg/dL (74-106); Potassium 3.6 mmol/L (3.5-5.1); Sodium Level 137 mmol/L (136-145)
[2020-11-24 08:45] VITALS: BP 137/65; PULSE 107; RESP 18; TEMP 36.4; O2SAT 96
[2020-11-24] MEDS: PARoxetine 10 MG Tablet PO (08:51)
--- NOTE | 2020-11-24 09:07 | DCINST_ITS ---
- Discharge Diagnoses Current Active Problems: Current Active and Chronic Problems Acute kidney injury (Acute) Acute pancreatitis (Acute) Insomnia (Chronic) Anxiety (Chronic) Lactic acidosis (Acute) Hypertension (Chronic) Gout (Chronic) Depression (Chronic) Hypokalemia (Acute) Alcoholism /alcohol abuse (Chronic) You will use the following diet at home:: No restrictions Discharge Activity: Return to Normal Activity Call your doctor if you observe: Inability to urinate, Shortness of breath, Dizziness, Fainting spells Allergies/Adverse Reactions: Allergies prednisone Adverse Reaction (Verified 11/21/20 11:08) Other RAPID HR AND CANNOT SLEEP Medications to take at Discharge Multivitamin/Iron/Folic Acid [Centrum Adults Tablet] 1 tab PO DAILY 11/21/20 Paroxetine [Paxil] 10 mg PO BID 11/21/20 Lisinopril [Zestril] 10 mg PO DAILY #1 tab 11/24/20 The following prescriptions were given: Lisinopril [Zestril] 10 mg PO DAILY #1 tab Primary Care Physician: [facility] Doctor,Out of [NON-STAFF] - Please follow up with your Primary Care Physician in: 1 Week Test Results: Test results from this visit will be discussed in further detail at your follow- up appointment, if applicable. Please Follow Up With: [facility] When: As scheduled November 28 Proposed Discharge Date: 11/24/20
--- NOTE | 2020-11-24 09:12 | PCM.WORK.EX ---
Work/School Excuse Work/School Excuse for:: Patient Please excuse this person from:: Work From: 11/21/20 through: 11/24/20 - May return
--- NOTE | 2020-11-24 09:57 | PCM.DC.SUM ---
Discharge Date and Diagnosis - Problem List Patient Problems: Active and Suspected Problems Acute kidney injury (Acute) Acute pancreatitis (Acute) Lactic acidosis (Acute) Hypokalemia (Acute) Date of Admission: 11/21/20 Date of Discharge: 11/24/20 - Primary Discharge Diagnosis Acute Problems: Active Problems 1. Acute pancreatitis, related to alcohol use 2. Acute kidney injury 3. Hyponatremia 4. Alcohol dependence 5. Hypertension 6. Chewing tobacco use 7. Depression 8. Obesity 9. Hypertriglyceridemia - Secondary Discharge Diagnosis Chronic Problems: Chronic Problems Insomnia (Chronic) Anxiety (Chronic) Hypertension (Chronic) Gout (Chronic) Depression (Chronic) Alcoholism /alcohol abuse (Chronic) Hospital Course and Treatment Imaging Results: Diagnostic Data Renal Ultrasound 11/21/20 12:22 IMPRESSION: Normal ultrasound of the kidneys. Electronically Signed: Francis Goodwin MD at 13:43 EST , Service support , Dr. Nelson- Nephrology Dr. Paula- Pulmonary medicine Operations: None Procedures: None Summary of Care Provided: The patient is a 45 year old M admitted 11/21/20 due to abdominal pain and low urine output. 1. Acute pancreatitis, related to alcohol use-improved. Advised alcohol cessation. Follow-up with PCP in 1 week. 2. Acute kidney injury-Nephrology consulted during admission. Renal ultrasound normal. Secondary to acute pancreatitis/prerenal azotemia. Creatinine on admission 8.7. Improved to 1.3 at discharge. Recommend BMP by PCP in 1 week. 3. Hyponatremia-resolved with IV fluids. 4. Alcohol dependence-encouraged cessation. Patient denies history of withdrawal. Social work consulted during admission, given list of alcohol treatment programs and counselors. He has an outpatient appointment on November 28 at [facility]. 5. Hypertension-metoprolol discontinued. Lisinopril decreased to 10 mg daily. Blood pressure 90-100 systolically during admission. Instructed patient to check blood pressure daily at home as his blood pressure medication may need increased on outpatient basis if blood pressure rises. 6. Chewing tobacco use-encouraged cessation. 7. Depression-on Paxil. 8. Obesity-encouraged diet and lifestyle applications. 9. Hypertriglyceridemia- chronic, previously on vascepa. Recommend resuming Vascepa, patient will discuss with PCP. General: Alert, Oriented x3, Cooperative HEENT: Atraumatic, PERRLA, EOMI, Normocephalic Neck: Supple, No JVD, Negative Carotid Bruits Lungs: Clear to auscultation, Normal air movement Cardiovascular: Regular rate, No murmurs Abdomen: Bowel Sounds Present, Soft, Non-Distended, Tender - Improved Extremities: No clubbing, No cyanosis, No edema, Capillary Refill Less than 3 Seconds Skin: No rashes, No breakdown Musculoskeletal: No Tenderness to Palpation of Joints or Extremities Neurological: Cranial nerves II-XII grossly intact, Neuro grossly intact Psych/Mental Status: Normal Affect, Appropriate Patient seen and examined prior to discharge. Physical assessment as noted above. Patient is stable for discharge with follow up recommendations as noted above. This patient was seen by OLGA LIDIA Zarco under the supervision of Dr. Morton. Patient Problems: Active and Suspected Problems Acute kidney injury (Acute) Acute pancreatitis (Acute) Lactic acidosis (Acute) Hypokalemia (Acute) - Physical Exam Vitals/I&O's: Vital Signs Temp Pulse Resp BP Pulse Ox 97.6 F L 107 H 18 137/65 H 96 11/24/20 08:45 11/24/20 08:45 11/24/20 08:45 11/24/20 08:45 11/24/20 08:45 Oxygen Delivery Method Room Air Weight: 269 lb 13.533 oz Body Mass Index (BMI) 35.3 Finger Stick Blood Glucose 97 Intake and Output for Last 24 Hours 11/22/20 11/23/20 11/24/20 23:59 23:59 23:59 Intake Total 6247.31 / 6247.31 2811.67 / 3111.67 1510 / 1510 Output Total 4325 / 4325 3750 / 4925 1775 / 1775 Balance 1922.31 / 1922.31 -938.33 / -1813.33 -265 / -265 Laboratory Results 11/24/20 05:53: Sodium 137, Potassium 3.6, Chloride 98, Carbon Dioxide 31.0, Anion Gap 8, BUN 26 H, Creatinine 1.35 H, Estim Creat Clear Calc 75.05, Est GFR (MDRD) Af Amer 73, Est GFR (MDRD) Non-Af 60, BUN/Creatinine Ratio 19.3, Glucose 119 H, Calcium 8.7 Current Medications Lactated Ringer's () 1,000 mls @ 100 mls/hr IV .Q10H RONIT Last Admin: 11/24/20 05:52 Dose: 100 mls/hr Documented by: Ondansetron HCl (Ondansetron 4 Mg/2 Ml Vial) 4 mg IV Q8H PRN PRN PRN Reason: NAUSEA/VOMITING Oxycodone HCl (Oxycodone 5 Mg Tablet) 10 mg PO Q6H PRN PRN PRN Reason: Pain Score 6-10 Last Admin: 11/24/20 05:54 Dose: 10 mg Documented by: Paroxetine HCl (Paroxetine 10 Mg Tablet) 10 mg PO DAILY RONIT Last Admin: 11/24/20 08:51 Dose: 10 mg Documented by: Sodium Chloride (0.9% Saline Lock 10 Ml Syringe) 10 - 40 ml IV UD PRN PRN Reason: SALINE FLUSH Last Admin: 11/21/20 18:05 Dose: 10 ml Documented by: Discharge Diet: No Restrictions Discharge Activity: Return to Normal Activity Call your doctor if you observe: Inability to urinate, Shortness of breath, Dizziness, Fainting spells Home Medications: Medications to take at Discharge Multivitamin/Iron/Folic Acid [Centrum Adults Tablet] 1 tab PO DAILY 11/21/20 Paroxetine [Paxil] 10 mg PO BID 11/21/20 Lisinopril [Zestril] 10 mg PO DAILY #1 tab 11/24/20 Following Prescriptions Were Given to Patient: Lisinopril [Zestril] 10 mg PO DAILY #1 tab Primary Care Physician: Sudarshan Doctor,Out of [NON-STAFF] - Please follow up with your Primary Care Physician in: 1 Week Please Follow Up With: [facility] When: As scheduled November 28 Disposition: Home Minutes spent on discharge:: 35 Patient Condition:: Stable Medical Necessity - Tobacco Use Smoking Status: Never smoker Tobacco Use: Chew Meaningful Use Info Meaningful Use Diagnoses (Choose all that apply): None applicable
[2020-11-24 10:15] VITALS: BP 137/65; PULSE 107; RESP 18; TEMP 36.4; O2SAT 96
[2020-11-25 08:55] LABS: ANTINUCLEAR ANTIBODIES DIRECT Negative (Negative)
[2020-11-26 16:09] LABS: Complement C3 164 mg/dL (82-167); Cytoplasmic Ab (C-ANCA) <1:20 titer (Neg:<1:20); PROEL- A/G Ratio 0.6 (0.7-1.7); PROEL- Albumin 2.2 g/dL (2.9-4.4); PROEL- Alpha-1 Globulin 0.7 g/dL (0.0-0.4); PROEL- Alpha-2 Globulin 1.3 g/dL (0.4-1.0); PROEL- Beta Globulin 0.9 g/dL (0.7-1.3); PROEL- Gamma Globulin 0.8 g/dL (0.4-1.8); PROEL- Globulin, Total 3.7 g/dL (2.2-3.9); PROEL- TOTAL PROTEIN 5.9 g/dL (6.0-8.5); PROELU- Albumin, Urine 18.6 % (.); PROELU- Alpha-1-Globulin,Ur 6.8 % (.); PROELU- Alpha-2-Globulin,Ur 23.1 % (.); PROELU- Beta Globulin, Ur 27.4 % (.); Total Protein, Ur 46.8 mg/dL (Not Estab.)
[2020-11-26 16:18] LABS: Anti-Glomerular Basement Memb 4 units (0-20); Perinuclear Ab (P-ANCA) <1:20 titer (Neg:<1:20)
== END 2020-11-24 14:14 | disposition home or self-care (01) | DRG 438 ==
LOC: ED 12:23 → ICU 11-22 07:37 → PCU 11-22 07:37 → ICU 11-22 11:10 → PCU 11-22 15:36
PROVIDERS: Internal Medicine Critical Care Medicine; Internal Medicine Nephrology; Nurse Practitioner Family; Admitting Provider Internal Medicine; Emergency Provider Emergency Medicine; Visit Provider Internal Medicine
DX: K85.20 Alcohol induced acute pancreatitis without necrosis or infection (principal); R57.1 Hypovolemic shock; E87.1 Hypo-osmolality and hyponatremia; E87.2 Acidosis; N17.9 Acute kidney failure, unspecified; E87.6 Hypokalemia; E87.8 Other disorders of electrolyte and fluid balance, not elsewhere classified; F10.20 Alcohol dependence, uncomplicated; Y90.9 Presence of alcohol in blood, level not specified; I10 Essential (primary) hypertension; F32.9 Major depressive disorder, single episode, unspecified; F41.0 Panic disorder [episodic paroxysmal anxiety]; E66.9 Obesity, unspecified; E78.1 Pure hyperglyceridemia; M1A.9XX0 Chronic gout, unspecified, without tophus (tophi); E86.0 Dehydration; I95.89 Other hypotension; F51.04 Psychophysiologic insomnia; Z72.0 Tobacco use; Z68.38 Body mass index [BMI] 38.0-38.9, adult; Z79.899 Other long term (current) drug therapy
CPT/HCPCS: 36415; 76770; 80048; 80053; 80069; 81001; 82550; 82570; 83520; 83605; 83690; 83735; 83935; 84100; 84165; 84166; 84300; 84478; 85025; 86038; 86160; 86225; 86235; 86256; 87040; 97161; 97165; 97803; 99284; J7030; J7050; J7120; A4216; J2310; J2405

== ENCOUNTER → 2021-01-29 05:15 | Outpatient (CLI) | payer OTHER, SELFPAY ==
[2020-11-21 15:01] VITALS: BMI 35.3
[2021-01-29 05:44] LABS: Anion Gap 6 (5-15); BUN 13 mg/dL (7-18); BUN/Creat Ratio 17.2 RATIO (10-20); Calcium,Total 9.1 mg/dL (8.5-10.1); Chloride 105 mmol/L (98-107); Creatinine, Serum 0.76 mg/dL (0.70-1.30); EST Glomerular Filtration Rate 118 mL/min (>60); Est Glom Filt Rate - Afr Amer 142 mL/min (>60); Glucose 107 mg/dL (74-106); Potassium 4.2 mmol/L (3.5-5.1); Sodium Level 139 mmol/L (136-145)
== END ==
PROVIDERS: Referring Provider Nurse Practitioner Family; Visit Provider Nurse Practitioner Family
DX: K85.20 Alcohol induced acute pancreatitis without necrosis or infection (principal); N17.9 Acute kidney failure, unspecified; E87.6 Hypokalemia
CPT/HCPCS: 36415; 80048

== ENCOUNTER 2021-08-22 11:46 | Emergency (ER) | payer OTHER, SELFPAY ==
[2021-08-22 11:47] VITALS: BP 156/95; PULSE 114; RESP 18; TEMP 36.6; O2SAT 99; BMI 35.9
--- NOTE | 2021-08-22 14:10 | EDS_ITS ---
HPI History of Present Illness Chief Complaint: Lower Extremity Injury Narrative Narrative: Patient has had spontaneous onset of pain and swelling in the left knee to the point where any little movement makes it hurts severely. He states it feels similar to gout that he has had in his ankle and foot before but he has never had it in his knee. He denies any systemic symptoms or fevers/chills. Patient initially states he did not have any injury, but remembers that about 3 or 4 days prior to the onset of this discomfort, he stepped off of a curb and may be hyperextended it a little, and then fell onto his kneecap. It hurt a little but he was fine, and he had no swelling the next day or major issues until several days later. He is not on anticoagulation and not a diabetic. He was seen in urgent care several days ago, they did an x-ray that they told him was normal, but he had no other tests. [facility] Medical History (Updated 08/22/21 @ 18:[address] Sylvester Morales MD) Alcoholism /alcohol abuse Anxiety Depression Gout Hypertension Home Medications thypbxmtkclr-qrpn-beutv acid 1 tab PO DAILY 11/21/20 [History Last Taken 5 Days Ago ~11/16/20] paroxetine HCl 10 mg PO BID 11/21/20 [History Last Taken 11/21/20] lisinopril 10 mg PO DAILY #1 tab 11/24/20 [Rx Last Taken Unknown] Allergy/AdvReac Type Severity Reaction Status Date / Time prednisone AdvReac Other Verified 08/22/21 11:48 Social History Smoking Status: Never smoker ROS ROS ED Constitutional Constitutional ED: Denies chills or fever(s) Musculoskeletal Musculoskeletal: Reports extremity pain; Denies neck pain Integumentary Denies Abrasions, rash or wounds Neurologic Neurologic: Denies paresthesias or weakness EXAM Physical Exam Const Vital Signs: 08/22/21 11:47 Temperature 97.9 F Temperature Source Temporal Pulse Rate 114 H Respiratory Rate 18 Blood Pressure 156/95 H Blood Pressure Mean 115 Pulse Ox 99 Oxygen Delivery Method Room Air Positive well nourished and well developed General Appearance ED: well developed and NAD Neck full ROM and supple Back/Spine normal ROM and normal to inspection Extremity no calf tenderness Extremity Narrative: Very limited range of motion left knee due to significant pain with even short arc range of motion. Slightly more erythematous compared with contralateral knee. Effusion present. No significant erythema. No other skin abnormalities. All compartments of the left lower extremity are soft and nondistended and nontender. Neuro oriented x3, no focal motor deficits and no sensory deficits noted Sensorium / Orientation: alert Psych mental status grossly normal and thought process normal Skin no wounds Rashes: no rashes MDM MDM MDM Narrative Medical decision making narrative: Patient's work-up is nonspecific with elevated inflammatory markers, slightly elevated white blood count, as well as elevated uric acid. This is all consistent with acute gouty arthritis but could also be seen with septic arthritis. Arthrocentesis was performed after we discussed risk benefits, and fluid was sent. There were approximately 30,000 white blood cells, mostly neutrophils, Gram stain is negative, and crystals are positive for monosodium uric acid crystals. This is consistent with gout. Patient does not want prednisone because he has done poorly on it in the past with regards to side effects, but he has done Kenalog okay and prefers that. Therefore we waited till crystals returned, which was the last test, before treating him since he understands once we give him Kenalog we cannot take it back or stop it. Advised to follow-up with his doctor after his flareup is completed/better. Lab Data Attestation: I reviewed the patient's lab results. Labs: Laboratory Results - last 24 hr 08/22/21 08/22/21 08/22/21 14:20 14:20 15:40 WBC 11.5 H RBC 3.84 L Hgb 12.0 L Hct 35.1 L MCV 91.4 MCH 31.3 MCHC 34.2 RDW Std Deviation 45.8 H RDW Coeff of Rickey 13.8 Plt Count 136 L MPV 9.2 Immature Gran % (Auto) 0.700 Neut % (Auto) 72.6 H Lymph % (Auto) 15.3 L Wells % (Auto) 10.6 H Eos % (Auto) 0.5 Baso % (Auto) 0.3 Absolute Neuts (auto) 8.3 H Absolute Lymphs (auto) 1.75 Nucleated RBC % 0 ESR 79 H Sodium 135 L Potassium 3.5 Chloride 102 Carbon Dioxide 27.0 Anion Gap 6 BUN 7 Creatinine 0.75 Estim Creat Clear Calc 133.64 Est GFR (MDRD) Af Amer 144 Est GFR (MDRD) Non-Af 119 BUN/Creatinine Ratio 9.4 L Glucose 109 H Uric Acid 7.8 H Calcium 9.4 C-React Prot Ext Range 184.00 H Fluid Source Not Reportable Fluid Color YELLOW Fluid Appearance TURBID Fluid WBC 29.285 Fluid RBC 0.009 Fluid Tot Cell Count 29.375 Fld Polynuclear WBCs # 27.966 Fld Polynuclear WBCs % 95.7 Fluid Mononuclear WBCs 1.256 Fld Mononuclear WBCs % 4.3 Fluid Neutrophils 94 Fluid Lymphocytes 2 Fluid Monocytes 4 Fluid Crystals MONOSODIUM URATE Fluid Crystal Source SYNOVIAL Fl Crystal Path Review Will follow Fl Pathologist Comment May follow Fluid Comment 2 Not Reportable Procedures Other Procedures Procedure(s): Left knee arthrocentesis: Sterile prep and drape with Betadine, local anesthesia 1 cc 1% plain lidocaine, followed by lateral approach beneath the patella with knee in fully extended position and patient sitting/supine, obtained a bloody flash followed by about 70 cc of straw-colored fluid with a positive string sign. Tolerated well, no complications, improved symptoms and flexibility/range of motion afterwards. Discharge Plan Triage Chief Complaint: Lower Extremity Injury ED Provider: Sylvester Morales Dx/Rx/DC Orders Clinical Impression: Acute gouty arthritis Instructions: ED Gout, ED Gout Diet, Kenalog Injectable Suspension 40 mg/mL Prescriptions: No Action paroxetine HCl 10 MG tablet 10 mg PO BID RF: 0 vynhprfndzqs-vtrz-ecccq acid 1 EACH tablet 1 tab PO DAILY RF: 0 lisinopril 20 MG tablet 10 mg PO DAILY Qty: 1 RF: 0 Primary Care Provider: Care Physician,No Primary Referrals: Care Physician,No Primary [Primary Care Provider] - Doctor,Your [STAFF PHYSICIAN] - 1-2 Weeks Disposition Disposition: Home, Self Care
[2021-08-22 14:22] LABS: Absolute Lymphocyte Count 1.75 X10^3/uL (0.83-4.51); Absolute Neutrophil Count 8.3 X10^3/uL (2.0-7.7); Basophil# 0.03 X10^3/uL; Basophil% 0.3 % (0-1); Eosinophil# 0.06 X10^3/uL; Eosinophils% 0.5 % (0-5); Hematocrit 35.1 % (40-54); Lymphocyte # 1.75 X10^3/ul (0.83-4.51); Lymphocyte % 15.3 % (19-41); Mean Corp Hgb Conc 34.2 g/dL (32-36); Mean Corpuscular Hgb 31.3 pg (27.0-32.0); Mean Corpuscular Volume 91.4 fL (80-94); Mean Platelet Vol. 9.2 fl (6.2-12.0); Monocyte# 1.22 X10^3/uL; Monocyte% 10.6 % (0-10); NRBC Flagged by Analyzer 0 % (0-5); Neutrophil # 8.32 X10^3/uL (2.7-7.7); Neutrophil % 72.6 % (47-70); Platelet Count 136 K/mm3 (150-450); RBC Distribution Width CV 13.8 % (11.6-14.6); RBC Distribution Width SD 45.8 fl (35.1-43.9); Red Blood Count 3.84 M/mm3 (4.6-6.2); White Blood Count 11.5 K/mm3 (4.4-11.0)
[2021-08-22 14:35] LABS: Anion Gap 6 (5-15); BUN 7 mg/dL (7-18); BUN/Creat Ratio 9.4 RATIO (10-20); Calcium,Total 9.4 mg/dL (8.5-10.1); Chloride 102 mmol/L (98-107); Creatinine, Serum 0.75 mg/dL (0.70-1.30); EST Glomerular Filtration Rate 119 mL/min (>60); Est Glom Filt Rate - Afr Amer 144 mL/min (>60); Estimated Creatinine Clearance 133.64 ml/min; Glucose 109 mg/dL (74-106); Potassium 3.5 mmol/L (3.5-5.1); Sodium Level 135 mmol/L (136-145); Uric Acid 7.8 mg/dL (3.5-7.2)
[2021-08-22 14:36] LABS: Erythrocyte Sedimentation Rate 79 mm/hr (0-20)
[2021-08-22] MEDS: Ketorolac 30 MG/ML Syringe IV (14:54)
[2021-08-22 15:49] LABS: Pathologist Comment/Body Fluid May follow
[2021-08-22 16:35] LABS: Body Fluid Mononuclear WBC # 1.256 10^3/uL; Body Fluid Mononuclear WBC % 4.3 %; Body Fluid Polynuclear WBC % 95.7 %; Red Cell Count/Body Fluid 0.009 10^6/ul
[2021-08-22 17:14] LABS: White Blood Count/Body Fluid 29.285 10^3/uL
[2021-08-22 17:59] LABS: Auto B Fluid Analyzer BKGD Ct COUNTS W/IN LIMITS (W/IN LIMITS); Color/Body Fluid YELLOW
[2021-08-22 18:00] LABS: Appearance/Body Fluid TURBID; Body Fluid QC Type(s) BF1Q,BF2Q; Lymphocytes 2 %; Monocytes 4 %; Neutrophil (Segs) 94 %
[2021-08-22 18:01] LABS: CRYSTALS, BODY FLUID MONOSODIUM URATE
[2021-08-22 18:02] LABS: Source- Body Fluid SYNOVIAL
[2021-08-22] MEDS: Triamcinolone Acetonide 40 MG/ML Vial IM (18:18)
[2021-08-22 18:22] VITALS: BP 125/79; PULSE 86; RESP 18; O2SAT 96
[2021-08-25 14:56] LABS: Pathologist Review Reviewed
== END 2021-08-22 18:33 | disposition home or self-care (01) ==
PROVIDERS: Emergency Provider Emergency Medicine
DX: M10.9 Gout, unspecified (principal); I10 Essential (primary) hypertension; F32.A Depression, unspecified; F41.9 Anxiety disorder, unspecified; Z79.899 Other long term (current) drug therapy
CPT/HCPCS: 20610; 80048; 84550; 85025; 85652; 86140; 87070; 87075; 87205; 89050; 89060; 96374; 96375; 99282; A4216

== ENCOUNTER → 2022-06-21 | Emergency (ER) | payer OTHER, SELFPAY | END | disposition left against medical advice (07) | LOC: ED 14:25 | DX: R69 Illness, unspecified (principal); Z53.21 Procedure and treatment not carried out due to patient leaving prior to being seen by health care provider ==

== ENCOUNTER → 2023-07-02 | Outpatient (CLI) | payer OTHER, SELFPAY ==
[2023-07-02 09:06] LABS: Absolute Lymphocyte Count 1.63 X10^3/uL (0.83-4.51); Absolute Neutrophil Count 4.1 X10^3/uL (2.0-7.7); Basophil# 0.04 X10^3/uL; Basophil% 0.6 % (0-1); Eosinophil# 0.09 X10^3/uL; Eosinophils% 1.4 % (0-5); Hematocrit 30.3 % (40-54); Hemoglobin 10.1 g/dL (13.0-16.5); Lymphocyte # 1.63 X10^3/ul (0.83-4.51); Mean Corp Hgb Conc 33.3 g/dL (32-36); Mean Corpuscular Hgb 33.2 pg (27.0-32.0); Mean Corpuscular Volume 99.7 fL (80-94); Mean Platelet Vol. 10.2 fl (6.2-12.0); Monocyte# 0.53 X10^3/uL; Monocyte% 8.1 % (0-10); NRBC Flagged by Analyzer 0 % (0-5); Neutrophil # 4.11 X10^3/uL (2.7-7.7); Neutrophil % 62.9 % (47-70); Platelet Count 299 K/mm3 (150-450); RBC Distribution Width CV 14.6 % (11.6-14.6); RBC Distribution Width SD 53.9 fl (35.1-43.9); Red Blood Count 3.04 M/mm3 (4.6-6.2); White Blood Count 6.5 K/mm3 (4.4-11.0)
[2023-07-02 09:30] LABS: ALB/GLOB Ratio 0.6 RATIO (0.9-2.4); AST(SGOT) 45 U/L (15-37); Alanine Aminotransfer ALT/SGPT 41 U/L (16-61); Albumin, Serum 2.6 g/dL (3.2-5.0); Alkaline Phosphatase 166 U/L (45-117); Anion Gap 7 (5-15); BUN 7 mg/dL (7-18); BUN/Creat Ratio 9.9 RATIO (10-20); Calcium,Total 8.2 mg/dL (8.5-10.1); Chloride 100 mmol/L (98-107); Cholesterol 175 mg/dL (200); Creatinine, Serum 0.71 mg/dL (0.70-1.30); EST Glomerular Filtration Rate 126 mL/min (>60); Est Glom Filt Rate - Afr Amer 152 mL/min (>60); Globulin 4.4 g/dL (2.2-4.2); Glucose 291 mg/dL (74-106); High Density Lipoprotein 33 mg/dL; PSA,Total - Annual Screen 2.23 ng/mL (0.00-4.00); Sodium Level 134 mmol/L (136-145); Triglycerides 248 mg/dL; Very Low Density Lipoprotein 50 mg/dL (5-40)
== END | disposition home or self-care (01) ==
DX: I10 Essential (primary) hypertension (principal); E78.5 Hyperlipidemia, unspecified; I25.9 Chronic ischemic heart disease, unspecified; Z12.5 Encounter for screening for malignant neoplasm of prostate
CPT/HCPCS: 36415; 80053; 80061; 84153; 85025; G0103

== ENCOUNTER → 2023-07-09 | Outpatient (CLI) | payer OTHER, SELFPAY ==
[2023-07-09 05:39] LABS: Absolute Lymphocyte Count 1.67 X10^3/uL (0.83-4.51); Absolute Neutrophil Count 7.9 X10^3/uL (2.0-7.7); Basophil# 0.04 X10^3/uL; Basophil% 0.4 % (0-1); Eosinophil# 0.19 X10^3/uL; Eosinophils% 1.7 % (0-5); Hematocrit 36.3 % (40-54); Hemoglobin 11.6 g/dL (13.0-16.5); Lymphocyte # 1.67 X10^3/ul (0.83-4.51); Mean Corpuscular Hgb 31.3 pg (27.0-32.0); Mean Corpuscular Volume 97.8 fL (80-94); Mean Platelet Vol. 10.9 fl (6.2-12.0); Monocyte# 1.24 X10^3/uL; Monocyte% 11.1 % (0-10); NRBC Flagged by Analyzer 0 % (0-5); Neutrophil # 7.92 X10^3/uL (2.7-7.7); Neutrophil % 71.1 % (47-70); Platelet Count 308 K/mm3 (150-450); RBC Distribution Width CV 13.7 % (11.6-14.6); RBC Distribution Width SD 49.1 fl (35.1-43.9); Red Blood Count 3.71 M/mm3 (4.6-6.2); White Blood Count 11.1 K/mm3 (4.4-11.0)
[2023-07-09 06:09] LABS: ALB/GLOB Ratio 0.7 RATIO (0.9-2.4); AST(SGOT) 30 U/L (15-37); Alanine Aminotransfer ALT/SGPT 41 U/L (16-61); Albumin, Serum 3.2 g/dL (3.2-5.0); Alkaline Phosphatase 128 U/L (45-117); Amylase 16 U/L (25-115); Anion Gap 9 (5-15); BUN 10 mg/dL (7-18); BUN/Creat Ratio 11.4 RATIO (10-20); Calcium,Total 8.9 mg/dL (8.5-10.1); Chloride 100 mmol/L (98-107); Creatinine, Serum 0.87 mg/dL (0.70-1.30); EST Glomerular Filtration Rate 98 mL/min (>60); Est Glom Filt Rate - Afr Amer 119 mL/min (>60); Ferritin 850 ng/mL (26-388); Globulin 4.7 g/dL (2.2-4.2); Glucose 245 mg/dL (74-106); Iron 16 ug/dL (65-175); Iron Binding Capacity,Total 254 ug/dL (250-450); Lipase 16 U/L (13-75); PERCENT IRON SATURATION 6.3 % (15.0-55.0); Potassium 3.9 mmol/L (3.5-5.1); Protein, Total 7.9 g/dL (6.4-8.2); Sodium Level 135 mmol/L (136-145)
[2023-07-09 07:27] LABS: Hemoglobin A1c 7.1 % (3.8-5.6)
[2023-07-09 07:39] LABS: Vitamin D,25 Hydroxy 13.5 ng/mL
== END | disposition home or self-care (01) ==
DX: R73.01 Impaired fasting glucose (principal); K85.90 Acute pancreatitis without necrosis or infection, unspecified; I25.9 Chronic ischemic heart disease, unspecified; D64.9 Anemia, unspecified; E55.9 Vitamin D deficiency, unspecified
CPT/HCPCS: 36415; 80053; 82150; 82306; 82728; 82746; 83036; 83540; 83550; 83690; 85025

== ENCOUNTER → 2023-07-13 | Outpatient (CLI) | payer OTHER, SELFPAY ==
--- NOTE | 2023-07-13 12:05 | CT_ITS ---
STUDY: CT ABDOMEN AND PELVIS WITH CONTRAST REASON FOR EXAM: Male, 48 years old. Known pancreatitis, elevated LFTs RADIATION DOSAGE (If Supplied By Facility): CTDIvol = ( 16.58 ) mGy, DLP = ( 1314.70 ) mGycm TECHNIQUE: Transaxial images were obtained from the dome of the diaphragm to the symphysis pubis without oral contrast. Oral and amp;amp; IV Readi-CAT and amp;amp; 100mL Isovue-370 was administered. Sagittal and coronal images were reconstructed. Individualized dose optimization techniques were used for this CT. COMPARISON: 07/09/2023 FINDINGS: The visualized lung bases are unremarkable. The visualized portions of the heart are within normal limits. There is decreased attenuation of the liver consistent with steatosis. Normal gallbladder and extrahepatic biliary system. Normal spleen. There is persistent CT evidence of pancreatitis with peripancreatic inflammatory stranding and fluid. There is a poorly defined low-density fluid collection extending from the pancreatic head inferiorly into the mesentery consistent with a pseudocyst or phlegmon. It has become more organized compared to the previous study with some subtle peripheral enhancement and measures approximately 8.59 x 14.47 x 8.43 cm. Continued follow-up is recommended to assure resolution Normal bilateral adrenal glands. Normal right kidney. Normal left kidney. Normal visualized stomach. Normal small intestine. Normal colon. There is non-visualization of the appendix. There are persistent inflammatory changes down both paracolic gutters slightly more advanced in the right than the left Normal abdominal aorta. Normal inferior vena cava. Normal retroperitoneum. Normal urinary bladder. Normal abdominal wall. Degenerative changes noted at L5/S1 CT/Abdomen/Pelvis WITH Contrast IMPRESSION: Persistent CT evidence of pancreatitis without significant interval change overall since the previous study. There is a more clearly defined and organized pseudocyst/phlegmon extending from the pancreatic head inferiorly in the middle of the mesentery measuring 8.59 x 14.47 x 8.43 cm. Persistent inflammatory stranding in both paracolic gutters. Fatty liver without a discrete lesion Bowel loops are unremarkable Lung bases are clear No suspicious adenopathy Degenerative changes at L5/S1 Electronically Signed: Deepak Marks MD at 20:01 EDT ,
== END | disposition home or self-care (01) ==
DX: R93.89 Abnormal findings on diagnostic imaging of other specified body structures (principal)
CPT/HCPCS: 74177; Q9967

== ENCOUNTER 2023-09-14 20:01 | Emergency (ER) | payer OTHER, SELFPAY ==
[2023-09-14 20:02] VITALS: BP 120/81; PULSE 92; RESP 15; TEMP 36.9; O2SAT 98
[2023-09-14 20:14] VITALS: BMI 29.5
[2023-09-14] MEDS: HYDROcodone Bitartrate/Apap 5/325 Tablet PO (20:38)
[2023-09-14] MEDS: Triamcinolone Acetonide 40 MG/ML Vial 80 MG IM (20:39)
--- NOTE | 2023-09-14 22:35 | ED.VIS.LOWEX ---
HPI History of Present Illness Chief Complaint: Lower Extremity Injury Informant: patient and spouse/S.O. Narrative Narrative: Recurrent on and off swelling left knee and ankle over the last 6 weeks. Seen his doctor, had short trials of steroid however due to side effects he would stop them. His symptoms would improve after 2 days. No fevers. No trauma. He is being referred to rheumatology. Note he was seen in the ED 2 years ago for similar had knee aspiration and negative for infection confirming gout. He does he is typical meats and seafood however has not changed in quantity. He was previously on allopurinol however unclear why it was stopped. Prior similar symptoms: Yes PFSH PFSH Medical History Alcoholism /alcohol abuse Anxiety Anxiety Depression Diabetes Gout Hypertension Liver fibrosis Myocardial infarct Sleep apnea Home Medications multivitamin-ferrous fumarate-folic acid 18 mg-400 mcg tablet 1 tab PO DAILY SUPPLEMENT 11/21/20 [History Last Taken 5 Days Ago ~11/16/20] paroxetine HCl 10 mg tablet 10 mg PO BID Check with primary doctor 11/21/20 [History Last Taken 11/21/20] allopurinol 100 mg tablet 100 mg PO DAILY #30 tabs 09/14/23 [Rx Last Taken Unknown] hydrocodone-acetaminophen 5-325mg 5mg-325mg 1 tab PO Q6H PRN PRN Pain 3 days #12 TABLETS 09/14/23 [Rx Last Taken Unknown] insulin NPH isoph U-100 human 100 unit/mL subcutaneous suspension (Humulin N NPH U-100 Insulin (isophane susp)) 15 unit subcut .LUNCH AND DINNER 09/14/23 [History Last Taken Unknown] insulin glargine 100 unit/mL (3 mL) subcutaneous pen (Lantus Solostar U-100 Insulin) 30 unit subcut QHS 09/14/23 [History Last Taken Unknown] metformin 500 mg tablet,extended release 24 hr 500 mg PO DAILY 09/14/23 [History Last Taken Unknown] metoprolol succinate 100 mg tablet,extended release 24 hr 100 mg PO DAILY 09/14/23 [History Last Taken Unknown] Allergy/AdvReac Type Severity Reaction Status Date / Time prednisone AdvReac Other Verified 09/14/23 20:05 Social History Smoking Status: Never smoker ROS ROS ED Constitutional Constitutional ED: Denies chills, fever(s) or sweats Eyes Eyes: Denies change in vision ENT ENT ED: Denies dysphagia or sore throat Cardiovascular Cardiovascular: Denies chest pain, leg edema, palpitations or racing heartbeat Respiratory/Chest Respiratory/Chest: Denies cough, dyspnea or dyspnea on exertion Gastrointestinal Gastrointestinal: Denies abdominal pain, diarrhea, nausea or vomiting Genitourinary Genitourinary ED: Denies dysuria, hematuria or urinary frequency Musculoskeletal Musculoskeletal: Reports extremity pain and other Details: Left knee and ankle pain and swelling ; Denies back pain or neck pain Integumentary Denies rash or wounds Neurologic Neurologic: Denies headache(s), paresthesias or weakness EXAM Physical Exam Const Vital Signs: 09/14/23 20:02 Temperature 98.5 F Temperature Source Temporal Pulse Rate 92 Respiratory Rate 15 Blood Pressure 120/81 H Blood Pressure Mean 94 Pulse Ox 98 Oxygen Delivery Method Room Air Positive well nourished and well developed General Appearance ED: well developed and NAD HEENT Reports moist mucous membranes normocephalic and atraumatic Eyes PERRL, EOMs intact bilaterally and conjunctivae normal General Eye ED: Yes normal appearance of both eyes Neck no lymphadenopathy and supple General: Negative for tenderness Chest Wall Chest: Negative for tenderness Resp normal respiratory effort and normal air movement Effort and Inspection: symmetric chest movement; Negative for respiratory distress Cardio regular rate, regular rhythm and no murmurs Peripheral Pulses: pulses 2+ throughout GI normal to inspection, nondistended, normoactive bowel sounds and non-tender Palpation: Negative for guarding or rebound tenderness present Back/Spine no CVA tenderness and no thoracic nor lumbar tenderness Extremity Extremity Narrative: Left lower extremity: There is suprapatellar swelling, no warmth. Mild ankle swelling. No deformities. Skin intact. No erythema. Neuro vas intact distally. General Extremety ED: Yes edema and tenderness General Extremity: edema Neuro oriented x3 and no sensory deficits noted Sensorium / Orientation: awake and alert Skin no rashes or lesions noted and no wounds MDM MDM MDM Narrative Medical decision making narrative: Interventions / MDM: Differential diagnosis: Gout Diagnosis considered but do not suspect: No clinical septic joint My EKG interpretation: N/A Imaging independently reviewed and interpreted by myself: N/A External documents reviewed: Previous visits with aspiration of the knee confirming gout with crystals. Test considered but not ordered:N/A ED course: Patient nontoxic recurrent swelling with confirmed gout history of the same knee. No clinical septic joint. Also reviewing records he was given Kenalog injection in the past which seem to help his symptoms and he confirmed this. He does not tolerate oral prednisone pills. Therefore Kenalog was started. He is given Fletcher in the ED. He is restarted back on allopurinol to try to help with prevention. He is pending rheumatology referral as an outpatient. Follow-up with his PCP. Will monitor his glucose with his diabetes. Re-evaluation: stable Disposition discussed with patient/family/significant other: Patient and significant other were Case discussed with consulting clinician: N/A This note was generated with [employer] dictation software. It may contain incorrect words, spelling, and punctuation that were not noted in checking the note before signing. Discharge Plan Triage Chief Complaint: Lower Extremity Injury ED Provider: Dieter Iqbal Dx/Rx/DC Orders Clinical Impression: Gout of left knee, Acute gout of left ankle Instructions: ED Gout, ED Gout Diet Prescriptions: New allopurinol 100 mg tablet 100 mg PO DAILY Qty: 30 0RF hydrocodone-acetaminophen [hydrocodone-acetaminophen] 5-325 mg tablet 1 tab PO Q6H PRN PRN (Reason: Pain) 3 Days Qty: 12 0RF No Action paroxetine HCl 10 MG tablet 10 mg PO BID ayvwwunsddtk-lmbg-xhtfc acid 1 EACH tablet 1 tab PO DAILY metformin 500 mg tablet extended release 24 hr 500 mg PO DAILY Patient Comments: TAKE 1 TABLET BY MOUTHCONCE DAILY insulin glargine [Lantus Solostar U-100 Insulin] 100 unit/mL (3 mL) insulin pen 30 unit SUBCUT QHS Patient Comments: INJECT 30 UNITSNSUBCUTANEOUSLY EVERY EVENING Humulin N NPH U-100 Insulin 100 unit/mL suspension 15 unit SUBCUT .LUNCH AND DINNER Patient Comments: INJECT 5 UNITSTSUBCUTANEOUSLY WITH LUNCH AND 5 UNITS WITH DINNER metoprolol succinate 100 mg tablet extended release 24 hr 100 mg PO DAILY Primary Care Provider: JEFF SEGURA Referrals: JEFF SEGURA [Other] - 2 Days Activity Restrictions/Additional Instructions: You had knee aspiration 2 years ago confirming gout in that knee. Status post Kenalog IM. Take Fletcher as prescribed. Restart allopurinol. Keep your follow-up with your doctor in 2 days. Disposition Disposition: Home, Self Care
[2023-09-14 22:38] VITALS: BP 134/71; PULSE 87; RESP 16; O2SAT 97
== END 2023-09-14 22:40 | disposition home or self-care (01) ==
LOC: ED 20:48
PROVIDERS: Emergency Provider Emergency Medicine; Visit Provider Emergency Medicine
DX: M10.09 Idiopathic gout, multiple sites (principal); E11.9 Type 2 diabetes mellitus without complications; Z79.4 Long term (current) use of insulin; I10 Essential (primary) hypertension; G47.30 Sleep apnea, unspecified; I25.2 Old myocardial infarction; Z79.84 Long term (current) use of oral hypoglycemic drugs; Z79.899 Other long term (current) drug therapy
CPT/HCPCS: 96372; 99283

== ENCOUNTER → 2023-11-29 | Outpatient (CLI) | payer OTHER, SELFPAY ==
[2023-11-29 04:00] LABS: Partial Thromboplast Time 25.8 Seconds (24.1-36.2)
[2023-11-29 04:05] LABS: AST(SGOT) 18 U/L (15-37); Alanine Aminotransfer ALT/SGPT 32 U/L (16-61); Alkaline Phosphatase 70 U/L (45-117); Anion Gap 4 (5-15); BUN 18 mg/dL (7-18); BUN/Creat Ratio 28.3 RATIO (10-20); Calcium,Total 8.6 mg/dL (8.5-10.1); Chloride 109 mmol/L (98-107); Creatinine, Serum 0.64 mg/dL (0.70-1.30); EST Glomerular Filtration Rate 142 mL/min (>60); Est Glom Filt Rate - Afr Amer 171 mL/min (>60); Globulin 3.1 g/dL (2.2-4.2); Glucose 139 mg/dL (74-106); Potassium 3.8 mmol/L (3.5-5.1); Protein, Total 6.1 g/dL (6.4-8.2); Sodium Level 140 mmol/L (136-145)
[2023-11-29 04:16] LABS: Absolute Lymphocyte Count 2.41 X10^3/uL (0.83-4.51); Absolute Neutrophil Count 3.5 X10^3/uL (2.0-7.7); Basophil# 0.04 X10^3/uL; Basophil% 0.6 % (0-1); Eosinophil# 0.14 X10^3/uL; Eosinophils% 2.1 % (0-5); Hematocrit 36.5 % (40-54); Hemoglobin 12.2 g/dL (13.0-16.5); Lymphocyte # 2.41 X10^3/ul (0.83-4.51); Lymphocyte % 36.1 % (19-41); Mean Corp Hgb Conc 33.4 g/dL (32-36); Mean Corpuscular Hgb 31.1 pg (27.0-32.0); Mean Corpuscular Volume 93.1 fL (80-94); Monocyte# 0.58 X10^3/uL; Monocyte% 8.7 % (0-10); NRBC Flagged by Analyzer 0 % (0-5); Neutrophil # 3.46 X10^3/uL (2.7-7.7); Neutrophil % 51.8 % (47-70); Platelet Count 133 K/mm3 (150-450); RBC Distribution Width SD 54.8 fl (35.1-43.9); Red Blood Count 3.92 M/mm3 (4.6-6.2); White Blood Count 6.7 K/mm3 (4.4-11.0)
[2023-11-29 12:23] LABS: Hemoglobin A1c 6.9 % (3.8-5.6)
== END | disposition home or self-care (01) ==
LOC: LABSPEC 03:42
DX: D64.9 Anemia, unspecified (principal); E11.65 Type 2 diabetes mellitus with hyperglycemia; R94.5 Abnormal results of liver function studies
CPT/HCPCS: 36415; 80053; 83036; 85025; 85610; 85730

== ENCOUNTER → 2024-03-10 | Outpatient (CLI) | payer OTHER, SELFPAY ==
[2024-03-10 09:42] LABS: Anion Gap 6 (5-15); BUN 11 mg/dL (7-18); BUN/Creat Ratio 18.8 RATIO (10-20); Chloride 104 mmol/L (98-107); Creatinine, Serum 0.58 mg/dL (0.70-1.30); EST Glomerular Filtration Rate 156 mL/min (>60); Est Glom Filt Rate - Afr Amer 189 mL/min (>60); Glucose 167 mg/dL (74-106); Potassium 3.5 mmol/L (3.5-5.1); Sodium Level 140 mmol/L (136-145)
[2024-03-10 21:12] LABS: Hemoglobin A1c 6.6 % (3.8-5.6)
== END | disposition home or self-care (01) ==
DX: E11.65 Type 2 diabetes mellitus with hyperglycemia (principal)
CPT/HCPCS: 36415; 80048; 83036

== ENCOUNTER → 2024-12-22 | Outpatient (CLI) | payer OTHER, SELFPAY ==
[2024-12-22 21:57] LABS: Absolute Lymphocyte Count 2.25 X10^3/uL (0.83-4.51); Absolute Neutrophil Count 2.6 X10^3/uL (2.0-7.7); Basophil# 0.04 X10^3/uL; Basophil% 0.7 % (0-1); Eosinophil# 0.13 X10^3/uL; Eosinophils% 2.4 % (0-5); Hematocrit 40.5 % (40-54); Hemoglobin 14.1 g/dL (13.0-16.5); Lymphocyte # 2.25 X10^3/ul (0.83-4.51); Lymphocyte % 41.1 % (19-41); Mean Corp Hgb Conc 34.8 g/dL (32-36); Mean Corpuscular Hgb 31.2 pg (27.0-32.0); Mean Corpuscular Volume 89.6 fL (80-94); Mean Platelet Vol. 10.9 fl (6.2-12.0); Monocyte# 0.39 X10^3/uL; Monocyte% 7.1 % (0-10); NRBC Flagged by Analyzer 0 % (0-5); Neutrophil # 2.64 X10^3/uL (2.7-7.7); Neutrophil % 48.2 % (47-70); Platelet Count 100 K/mm3 (150-450); RBC Distribution Width CV 11.9 % (11.6-14.6); RBC Distribution Width SD 38.5 fl (35.1-43.9); Red Blood Count 4.52 M/mm3 (4.6-6.2); White Blood Count 5.5 K/mm3 (4.4-11.0)
[2024-12-22 22:23] LABS: ALB/GLOB Ratio 1.4 RATIO (0.9-2.4); AST(SGOT) 30 U/L (<=37); Alanine Aminotransfer ALT/SGPT 27 U/L (<=46); Albumin, Serum 4.2 g/dL (3.5-5.0); Alkaline Phosphatase 123 U/L (40-129); Anion Gap 13 (5-15); BUN 8 mg/dL (4-19); BUN/Creat Ratio 9.7 RATIO (10-20); Calcium,Total 9.3 mg/dL (7.6-11.0); Carbon Dioxide 26.9 mmol/L (21.0-32.0); Chloride 96 mmol/L (98-108); Cholesterol 174 mg/dL (<=200); EST Glomerular Filtration Rate 108 (>60); Globulin 2.9 g/dL (2.2-4.2); Glucose 276 mg/dL (70-99); High Density Lipoprotein 52 mg/dL; Low Density Lipoprotein Calc. 82 mg/dL; PSA,Total - Annual Screen 0.44 ng/mL (0.02-4.00); Protein, Total 7.1 g/dL (5.9-8.4); Sodium Level 136 mmol/L (133-145); Total Bilirubin 0.87 mg/dL (0.00-1.30); Triglycerides 202 mg/dL; Very Low Density Lipoprotein 40 mg/dL (5-40); cholesterol:hdl ratio screen 3.37
[2024-12-22 22:53] LABS: Hemoglobin A1c 9.5 % (<=5.6)
== END | disposition home or self-care (01) ==
DX: I10 Essential (primary) hypertension (principal); E11.9 Type 2 diabetes mellitus without complications; E78.5 Hyperlipidemia, unspecified; F41.9 Anxiety disorder, unspecified; Z12.5 Encounter for screening for malignant neoplasm of prostate
CPT/HCPCS: 36415; 80053; 80061; 83036; 84153; 84443; 85025; G0103